=== PATIENT | female | born 2000 | race Caucasian/White ===

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

== ENCOUNTER 2022-11-19 08:24 | Inpatient (IN) | payer OTHER, SELFPAY ==
[2022-11-19] VITALS (53 sets, daily range): BP systolic 103–176; BP diastolic 18–120; PULSE 68–133; RESP 18; TEMP 36.4–36.9; O2SAT 95–100
--- NOTE | ~2022-11-19 | US_ITS ---
EXAMINATION: US OB follow up DATE: 11/19/2022 09:20 INDICATION: Amniotic fluid index and growth assessment during third trimester. Patient in activ e labor, no care TECHNIQUE: Real-time ultrasound of the pelvis was performed. The interpreting radiologist was not pre sent for the study. COMPARISON: None. FINDINGS: There is a single living fetus in vertex presentation. The placenta is anterior. card iac activity and movement are noted. heart rate is 151 beats per minute (bpm). The amniot ic fluid index is 9.7 cm which is normal (normal range: 8.1 cm to 24.8 cm). The following biometric data were obtained: Biparietal diameter (BPD): 8.2 cm; head circumference (HC): 29.8 cm; abdominal circumference (AC): 33 .6 cm; femur length (FL): 6.7 cm. The head circumference to abdominal circumference ratio and femoral length to abdominal circumference ratio are greater than two standard deviations below the mean. These measurements are otherwise conc ordant. Estimated weight is 2755 g +/- 413 g. As single measurements, these parameters are each equal to the following estimated gestational ages w ith ranges of +/- 2 standard deviations: BPD: 32 weeks 6 days +/- 3 weeks 1 days. HC: 33 weeks 0 days +/- 3 weeks 0 days. AC: 37 weeks 4 days +/- 3 weeks 0 days. FL: 34 weeks 3 days +/- 3 weeks 0 days. estimated gestational age based solely on measurements from this exam is 34 weeks 3 days +/- 2 weeks 3 days. IMPRESSION: 1. Single living fetus in vertex presentation. 2. estimated gestational age based solely on measurements from this exam is 34 weeks 3 days +/- 2 weeks 3 days. 3. Normal amniotic fluid index based on estimated gestational age from this examination. 4. Discordant head circumference to abdominal circumference and femoral length to abdominal circumfer ence ratios are greater than two standard deviations below the mean. Reviewed, dictated and finalized at location B. ROPOMETRIST IMPRESSION: 1. Single living fetus in vertex presentation. 2. estimated gestational age based solely on measurements from this exam is 34 weeks 3 days +/- 2 weeks 3 days. 3. Normal amniotic fluid index based on estimated gestational age from [facility] examination. 4. Discordant head circumference to abdominal circumference and femoral length to abdominal circumference ratios are greater than two standard deviations belo w the mean.
[2022-11-19 08:50] LABS: Basophils Percent Auto 0.3 % (0.2-1.2); Eosinophils Absolute Auto 0.1 K/mm3 (0-0.3); Eosinophils Percent Auto 1.1 % (0-4.4); Hematocrit 39.7 % (37.0-47.0); Hemoglobin 13.5 g/dL (12.0-15.0); Immature Granulocyte Absolute 0.06 K/mm3 (0.00-0.031); Immature Granulocyte Percent A 0.5 % (0-0.5); Lymphocytes Absolute Auto 2.12 K/mm3 (0.9-3.2); Lymphocytes Percent Auto 17.7 % (18.3-44.2); Mean Corpuscular Hemoglobin 31.1 pg (26-34); Mean Corpuscular Volume 91.5 fl (80-100); Mean Platelet Volume 11.9 fl (7.4-10.4); Monocytes Absolute Auto 0.8 K/mm3 (0.1-0.6); Monocytes Percent Auto 6.7 % (2.6-8.5); Neutrophils Absolute Auto 8.8 K/mm3 (1.3-6.7); Neutrophils Percent Auto 73.7 % (45.5-73.1); Platelet Count Result 101 k/mm3 (150-375); Red Blood Count 4.34 M/mm3 (4.2-5.4); Red Cell Distribution Width 13.2 % (11.5-14.5)
--- NOTE | 2022-11-19 08:54 | WPDOBADMIT ---
Obstetrics - Admit Note Admission Note: 22 y/o Last period in early February. No care. Denies complications with last and delivery. States . Denies medical problems. Contractions every 2-3 FHR category 1 but limited tracing d/t patient pain and movement in bed U/S vertex presentation Cervix /-1 with bbow Anticipate imminent delivery Plan: labs, ultrasound, antibiotics Dr Navas notified record reviewed. No pertinent additions to the history and/or any subsequent changes in the physical findings that are not consistent with the expected course of the were found. Additions to the history and/or subsequent changes in the physical findings follow. None.
--- NOTE | 2022-11-19 08:54 | LDADM ---
This patient, Frances Pandey, was admitted to Labor/Delivery/Recovery 103 on 11/19/22 at 08:24. Plans for labor, pain management and were discussed with patient. Patient/family oriented to hospital policies and general routines including ID bracelet, bed and alarms, visiting hours, pain management, procedures, bathroom and other care routines, personal items, smoking policy, room service/diet and guest tray routines, infant security routines, and visiting hours. Patient/Family are encouraged to report perceived risks to care and to ask questions if they do not understand what they are told or what they should do. See OBIX for further documentation.
[2022-11-19] MEDS: AMPICILLIN 2 GM/NS 100 ML 2 GM/100 ML BAG IVPB (09:00)
[2022-11-19] MEDS: LACTATED RINGERS 1,000 ML 125 ML IV CONT ×2 (09:00→09:46)
[2022-11-19 09:01] LABS: Alanine Aminotransferase 14 U/L (6-35); Albumin Level 3.1 g/dL (3.5-5.1); Alkaline Phosphatase 141 U/L (38-126); Anion Gap 2 mmol/L (8-16); Aspartate Amino Transferase 19 U/L (14-36); Bilirubin,Total 0.3 mg/dL (0.2-1.3); Blood Urea Nitrogen 12 mg/dL (7-17); Calcium 8.1 mg/dL (8.4-10.2); Carbon Dioxide 27 mmol/L (22-30); Chloride 103 mmol/L (98-107); Estimated Glomerular Filt Rate > 60; Glucose 92 mg/dL (65-110); Potassium 4.3 mmol/L (3.4-5.0); Sodium 132 mmol/L (137-145)
[2022-11-19 09:35] LABS: Hepatitis B Surface Antigen Negative (Negative); Rubella IgG Antibody 13.7 IU/ML
[2022-11-19 09:41] LABS: HIV 1/2 Ab P24 Ag Result Negative (Negative)
--- NOTE | 2022-11-19 09:46 | WPDANESEPP ---
Anes - Eval Pre Procedure Procedure: Labor Epidural Date/Time: 11/19/22 09:46 Surgeon: Yosef Preop Diagnosis: Labor Pain Pre Op Diagnosis: Labor Patient Data Age: 22 Gender: F Height: 1.57 m Weight: Last Vital Signs Pulse 102 H 11/19/22 09:44 BP 147/95 H 11/19/22 09:44 Pulse Ox 95 11/19/22 09:45 O2 Del Method Room Air 11/19/22 08:51 Allergies Allergy/AdvReac Type Severity Reaction Status Date / Time No Known Allergies Allergy Verified 07/22/21 02:01 Home Medications Medication Instructions Recorded Confirmed Type No Home Medications 07/22/21 07/22/21 History Laboratory Tests 11/19/22 11/19/22 11/19/22 08:40 08:40 08:40 WBC 12.0 K/mm3 H K/mm3 (4.5-10.0) RBC 4.34 M/mm3 M/mm3 (4.2-5.4) Hgb 13.5 g/dL g/dL (12.0-15.0) Hct 39.7 % % (37.0-47.0) MCV 91.5 fl fl (80-100) MCH 31.1 pg pg (26-34) MCHC 34.0 g/dl g/dl (32-36) RDW 13.2 % % (11.5-14.5) Plt Count 101 k/mm3 L k/mm3 (150-375) MPV 11.9 fl H fl (7.4-10.4) Immature Gran % (Auto) 0.5 % % (0-0.5) Neut % (Auto) 73.7 % H % (45.5-73.1) Lymph % (Auto) 17.7 % L % (18.3-44.2) [place] % (Auto) 6.7 % % (2.6-8.5) Eos % (Auto) 1.1 % % (0-4.4) Baso % (Auto) 0.3 % % (0.2-1.2) Lymph # (Auto) 2.12 K/mm3 K/mm3 (0.9-3.2) [place] # (Auto) 0.8 K/mm3 H K/mm3 (0.1-0.6) Eos # (Auto) 0.1 K/mm3 K/mm3 (0-0.3) Baso # (Auto) 0.0 K/mm3 K/mm3 (0.0-0.1) Abs Immat Gran (auto) 0.06 K/mm3 H K/mm3 (0.00-0.031) Absolute Neuts (auto) 8.8 K/mm3 H K/mm3 (1.3-6.7) Absolute Nucleated RBC 0.0 K/mm3 K/mm3 (0.0-0.012) Nucleated RBC % 0.0 % % (0.0-0.2) Sodium Potassium Chloride Carbon Dioxide Anion Gap BUN Creatinine Estim Creat Clear Calc Estimated GFR Glucose Calcium Total Bilirubin AST ALT Alkaline Phosphatase Total Protein Albumin RPR Pending Hep Bs Antigen Negative (Negative) HIV 1&2 Ab/P24 Ag 4thGn Rubella IgG Antibody 13.7 IU/ML IU/ML (10 - ) Blood Type Antibody Screen 11/19/22 11/19/22 11/19/22 08:40 08:40 08:40 WBC RBC Hgb Hct MCV MCH MCHC RDW Plt Count MPV Immature Gran % (Auto) Neut % (Auto) Lymph % (Auto) [place] % (Auto) Eos % (Auto) Baso % (Auto) Lymph # (Auto) [place] # (Auto) Eos # (Auto) Baso # (Auto) Abs Immat Gran (auto) Absolute Neuts (auto) Absolute Nucleated RBC Nucleated RBC % Sodium 132 mmol/L L mmol/L (137-145) Potassium 4.3 mmol/L mmol/L (3.4-5.0) Chloride 103 mmol/L mmol/L (98-107) Carbon Dioxide 27 mmol/L mmol/L (22-30) Anion Gap 2 mmol/L L mmol/L (8-16) BUN 12 mg/dL mg/dL (7-17) Creatinine 0.50 mg/dL L mg/dL (0.7-1.0) Estim Creat Clear Calc Not Reportable Estimated GFR > 60 (59 - ) Glucose 92 mg/dL mg/dL (65-110) Calcium 8.1 mg/dL L mg/dL (8.4-10.2) Total Bilirubin 0.3 mg/dL mg/dL (0.2-1.3) AST 19 U/L U/L (14-36) ALT 14 U/L U/L (6-35) Alkaline Phosphatase 141 U/L H U/L (38-126) Total Protein 6.0 g/dL L g/dL (6.3-8.2) Albumin 3.1 g/dL L g/dL (3.5-5.1) RPR Hep Bs Antigen HIV 1&2
[2022-11-19] MEDS: BETAMETHASONE SOD PHOS/ACETATE 30 MG/5 ML VIAL 12 MG IM (09:56)
[2022-11-19 10:12] LABS: Rapid Plasma Reagin Non-Reactive (NonReactive)
[2022-11-19 10:31] LABS: Hemoglobin A1C 4.7 % (<5.7)
[2022-11-19 11:11] LABS: Amphetamine Screen Urine Negative (Negative); Barbiturate Screen Urine Negative (Negative); Benzodiazepines Screen Urine Negative (Negative); Cannabinoid Screen Urine Positive (Negative); Cocaine Screen Urine Negative (Negative); Methadone Screen Urine Negative (Negative); Opiate Screen Urine Negative (Negative); Phencyclidine Screen Urine Negative (Negative)
[2022-11-19] MEDS: OXYTOCIN 30 UNITS/NS 500 ML 30 UNITS/500 ML BAG 999 UNITS IV CONT (12:15)
[2022-11-19] MEDS: miSOPROStol 200 MCG TABLET 800 MCG RECTAL (12:56)
[2022-11-19] MEDS: OXYTOCIN 30 UNITS/NS 500 ML 30 UNITS/500 ML BAG 125 UNITS IV CONT (12:56)
--- NOTE | 2022-11-19 14:40 | PM.OBPRVD ---
OB - Delivery Note Procedure Delivery date: 11/19/22 Procedure: Events: No Care Induction method: None Delivery monitor: External FHT and External Uterine Route of delivery: Episiotomy description: None Laceration Description: None Anesthesia type: Epidural Narrative: Mother and baby in stable condition. Cord gasses collected and handed off to staff. [place] Baby Date of : 11/19/22 Time of : 12:02 Weeks of gestation at delivery: 40 Infant gender: Female Weight (pounds): 6 Weight (ounces): 3 presentation: vertex position: Right Occiput Anterior Placenta delivery description: Spontaneous score one minute: 9 score five minutes: 9
[2022-11-19] MEDS: BENZOCAINE 20% AER SPR (*SP) 56 GM CAN 1 SPRAY TOPICAL (14:51)
[2022-11-19] MEDS: ACETAMINOPHEN 325 MG TABLET 650 MG PO (14:51)
--- NOTE | 2022-11-19 14:55 | OBPPTRN ---
Patient transferred to post room # 285 via wheelchair accompanied by mother and sister. Fob incarcerated. PT oriented to unit, room, information board, rooming in, admission packet and security measures. PT introductions made and plan of care discussed per post , pain management, bottle feeding, daily care activities. PT received such instructions per one to one discussion, mom baby care guide and demonstrations this shift. PT sole recipient of such instructions and no barriers to learning identified at this time. Patient verbalizes understanding.
[2022-11-19] MEDS: IBUPROFEN 600 MG TABLET PO (15:17)
[2022-11-19] MEDS: DIBUCAINE 1% OINTMENT 30 GM TUBE 1 APPLIC TOPICAL (15:17)
--- NOTE | 2022-11-19 15:29 | PCCCNOTE ---
Received call from Jayla, foster care worker with [employer] ([phone]). She reports that pt. has open DCFS case and her first child (less than 1 year old) is in care and lives with Frances's father. Per Jayla, pt. uses meth and is also homeless. Father of baby is in [facility] group home. Jayla reports that she has already made DCFS report since Frances has delivered. I spoke with nursery nurse, Analia, who said baby will have urine drug screen and umbilical cord drug screen and both are pending. Online report made to DCFS and intake ID is [id number]. Care Coordination will see pt. tomorrow for further info and to offer resources.
[2022-11-20 04:15] VITALS: BP 130/82; PULSE 82; RESP 18; TEMP 36.9; O2SAT 97
[2022-11-20] MEDS: IBUPROFEN 600 MG TABLET PO (04:17)
[2022-11-20 05:04] LABS: Hematocrit 34.4 % (37.0-47.0); Hemoglobin 11.5 g/dL (12.0-15.0)
--- NOTE | 2022-11-20 07:29 | WPDANLDPN2 ---
Anes-Prog Note L&D Date/Time: 11/20/22 07:29 Comfortable throughout: labor and delivery Neuraxial method: epidural Epidural/Spinal procedure site: clean & non-tender Neuro status: Neuro function grossly intact. Cardiovascular status: normal Respiratory status: normal Airway patency: baseline Mental status: baseline Post-Op hydration status: normal Vital Signs: Last Vital Signs Temp 36.9 C 11/20/22 04:15 Pulse 82 11/20/22 04:15 Resp 18 11/20/22 04:15 BP 130/82 11/20/22 04:15 Pulse Ox 97 11/20/22 04:15 O2 Del Method Room Air 11/19/22 19:42 Pain score (VAS): 10 I/O: Intake & Output 11/19/22 11/19/22 11/20/22 15:59 23:59 07:59 Intake Total 1100 Output Total 627 Balance 473 Post-procedural complaints: none Patient feedback: Patient satisfied with anesthetic care.
[2022-11-20 07:45] VITALS: BP 125/79; PULSE 75; RESP 16; TEMP 36.8; O2SAT 97
--- NOTE | 2022-11-20 08:08 | PM.OBPNVD ---
OB - PN: Subj Subjective Date/time seen: 11/20/22 08:08 Patient comments: no complaints baby status: doing well OB - PN: Obj Data Labs 11/20/22 04:12 11/19/22 08:40 Labs: Laboratory Results - last 24 hr 11/19/22 11/19/22 11/19/22 08:40 08:40 08:40 WBC 12.0 H RBC 4.34 Hgb 13.5 Hct 39.7 MCV 91.5 MCH 31.1 MCHC 34.0 RDW 13.2 Plt Count 101 L MPV 11.9 H Immature Gran % (Auto) 0.5 Neut % (Auto) 73.7 H Lymph % (Auto) 17.7 L [place] % (Auto) 6.7 Eos % (Auto) 1.1 Baso % (Auto) 0.3 Lymph # (Auto) 2.12 [place] # (Auto) 0.8 H Eos # (Auto) 0.1 Baso # (Auto) 0.0 Abs Immat Gran (auto) 0.06 H Absolute Neuts (auto) 8.8 H Absolute Nucleated RBC 0.0 Nucleated RBC % 0.0 Sodium Potassium Chloride Carbon Dioxide Anion Gap BUN Creatinine Estim Creat Clear Calc Estimated GFR Glucose Hemoglobin A1c Calcium Total Bilirubin AST ALT Alkaline Phosphatase Total Protein Albumin Urine Opiates Screen Urine Methadone Screen Ur Barbiturates Screen Ur Phencyclidine Scrn Ur Amphetamine Screen U Benzodiazepines Scrn Urine Cocaine Screen U Cannabinoids Screen RPR Non-reactive Hep Bs Antigen Negative HIV 1&2 Ab/P24 Ag 4thGn Rubella IgG Antibody 13.7 Blood Type Antibody Screen 11/19/22 11/19/22 11/19/22 08:40 08:40 08:40 WBC RBC Hgb Hct MCV MCH MCHC RDW Plt Count MPV Immature Gran % (Auto) Neut % (Auto) Lymph % (Auto) [place] % (Auto) Eos % (Auto) Baso % (Auto) Lymph # (Auto) [place] # (Auto) Eos # (Auto) Baso # (Auto) Abs Immat Gran (auto) Absolute Neuts (auto) Absolute Nucleated RBC Nucleated RBC % Sodium 132 L Potassium 4.3 Chloride 103 Carbon Dioxide 27 Anion Gap 2 L BUN 12 Creatinine 0.50 L Estim Creat Clear Calc Not Reportable Estimated GFR > 60 Glucose 92 Hemoglobin A1c Calcium 8.1 L Total Bilirubin 0.3 AST 19 ALT 14 Alkaline Phosphatase 141 H Total Protein 6.0 L Albumin 3.1 L Urine Opiates Screen Urine Methadone Screen Ur Barbiturates Screen Ur Phencyclidine Scrn Ur Amphetamine Screen U Benzodiazepines Scrn Urine Cocaine Screen U Cannabinoids Screen RPR Hep Bs Antigen HIV 1&2 Ab/P24 Ag 4thGn Negative Rubella IgG Antibody Blood Type O Positive Antibody Screen Negative 11/19/22 11/19/22 11/20/22 08:40 10:44 04:12 WBC RBC Hgb 11.5 L Hct 34.4 L MCV MCH MCHC RDW Plt Count MPV Immature Gran % (Auto) Neut % (Auto) Lymph % (Auto) [place] % (Auto) Eos % (Auto) Baso % (Auto) Lymph # (Auto) [place] # (Auto) Eos # (Auto) Baso # (Auto) Abs Immat Gran (auto) Absolute Neuts (auto) Absolute Nucleated RBC Nucleated RBC % Sodium Potassium Chloride Carbon Dioxide Anion Gap BUN Creatinine Estim Creat Clear Calc Estimated GFR Glucose Hemoglobin A1c 4.7 Calcium Total Bilirubin AST ALT Alkaline Phosphatase Total Protein Albumin Urine Opiates Screen Negative Urine Methadone Screen Negative Ur Barbiturates Screen Negative Ur Phencyclidine Scrn Negative Ur Amphetamine Screen Negative U Benzodiazepines Scrn Negative Urine Cocaine Screen Negative U Cannabinoids Screen Positive A RPR Hep Bs Antigen HIV 1&2 Ab/P24 Ag 4thGn Rubella IgG Antibody Blood Type Antibody Screen Imaging Radiologist's impression: Impressions Obstetrics Ultrasound 11/19/22 09:26 IMPRESSION: 1. Single living fetus in vertex presentation. 2. estimated gestational age based solely on measurements from this exam is 34 weeks 3 days +/- 2 weeks 3 days. 3. Normal amniotic fluid index
[2022-11-20 11:20] LABS: Immature Platelet Fraction Pct 21.9 % (0.9-11.2); Mean Platelet Volume 12.9 fl (7.4-10.4); Platelet Count Result 126 k/mm3 (150-375)
--- NOTE | 2022-11-20 11:42 | PCCCNOTE ---
I spoke with Julissa, [facility] safety investigator, today [phone] and she reports baby will be taken into care at discharge. She is working with pt.'s disability case manager below to find a foster family as it does not seem mother or FOB have anyone that could care for . Per RN, pt. likely wanting to leave today and her sister will transport her home. I provided Sergio with [facility] a referral for pt. to see if she will be interested in any substance abuse after care. Will follow.
[2022-11-20 12:36] VITALS: BP 122/78; PULSE 79; RESP 16; TEMP 37; O2SAT 98
[2022-11-20 12:47] LABS: Alanine Aminotransferase 14 U/L (6-35); Albumin Level 2.6 g/dL (3.5-5.1); Alkaline Phosphatase 112 U/L (38-126); Anion Gap 2 mmol/L (8-16); Aspartate Amino Transferase 18 U/L (14-36); Bilirubin,Total 0.3 mg/dL (0.2-1.3); Blood Urea Nitrogen 10 mg/dL (7-17); Carbon Dioxide 25 mmol/L (22-30); Chloride 103 mmol/L (98-107); Estimated Glomerular Filt Rate > 60; Glucose 102 mg/dL (65-110); Potassium 4.2 mmol/L (3.4-5.0); Sodium 130 mmol/L (137-145); Uric Acid 5.2 mg/dL (2.5-7.5)
--- NOTE | 2022-11-20 15:19 | PC.NURSE ---
Pt. left AMA at 1430. Pt. encouraged to stay to monitor labs and blood pressure. Pt. states she has a court date in the am and wants to leave. Pt. offered a pass to leave in morning and can return. Pt. declined. Pt asked if she can return to visit baby, Pt allowed to visit. Pt. encouraged to call or return to ER with hypertension symptoms or any other concerns.
== END 2022-11-20 14:30 | disposition left against medical advice (07) | DRG 560 ==
LOC: ANHLDR 12:07 → ANHOB2 14:58
PROVIDERS: Advanced Practice Midwife; Admitting Provider Obstetrics & Gynecology; Visit Provider Obstetrics & Gynecology
DX: O80 Encounter for full-term uncomplicated delivery (principal); R03.0 Elevated blood-pressure reading, without diagnosis of hypertension; Z37.0 Single live birth; Z3A.40 40 weeks gestation of pregnancy
CPT/HCPCS: 36415; 76816; 80053; 80307; 83036; 84550; 85014; 85018; 85025; 85049; 85055; 86592; 86703; 86762; 86850; 86900; 86901; 87340; 88307; A9270; G0432; J0290; J0702; J2590; J2795; J7120

== ENCOUNTER 2024-06-27 18:55 | Observation (INO) | payer OTHER, SELFPAY ==
[2024-06-27] VITALS (32 sets, daily range): BP systolic 74–136; BP diastolic 47–82; PULSE 45–119; O2SAT 86–100; BMI 34.0
--- NOTE | ~2024-06-27 | US_ITS ---
EXAMINATION: US OB BPP wo non-stress DATE: 06/27/2024 22:20 INDICATION: Vaginal bleeding TECHNIQUE: Real-time pelvic ultrasound was performed. The interpreting radiologist was not present fo r the study. COMPARISON: None. FINDINGS: There is a single living fetus in transverse lie with head to maternal left. The placenta is anterio r and low-lying with caudal margin extending to the level of the internal cervical os. There are a fe w small hypoechoic regions at the margins of placenta suspicious for subchorionic hematoma. hea rt rate is 157 beats per minute (bpm). Normal amniotic fluid index of 9.3 cm. Biophysical profile performed by the technologist: breathing (30 sec sustained breathing in 30 minutes): 0 out of 2 movement (3 gross body movements in 30 minutes): 2 out of 2 tone (one episode of [id number]-[id number] limb movement): 2 out of 2 Amniotic fluid pocket (2 cm): 2 out of 2 Total score: 6 out of 8 IMPRESSION: 1. Single living fetus in transverse lie with head to maternal left and with heart rate of 157 bpm. 2. Biophysical profile 6 out of 8. With no points given for 30 seconds of breathing observed o ezra 30 minutes of observation. 3. Small subchorionic hematoma. 4. Normal amniotic fluid index of 9.3 cm. Reviewed, dictated and finalized at location A. IMPRESSION: 1. Single living fetus in transverse lie with head to maternal left and with fe carmencita heart rate of 157 bpm. 2. Biophysical profile 6 out of 8. With no points given for 30 seconds of feta l breathing observed over 30 minutes of observation. 3. Small subchorionic hematoma. 4. Normal amniotic fluid index of 9.3 cm.
--- NOTE | 2024-06-27 20:01 | OBADM ---
This patient, Frances Pandey, admitted to the OB room Labor/Delivery/Recovery 120 for observation. Patient/family oriented to hospital policies and general routines including ID bracelet, bed and alarms, visiting hours, pain management, procedures, bathroom and other care routines, personal items, smoking policy, room service/diet, and visiting hours. Patient/Family are encouraged to report perceived risks to care and to ask questions if they do not understand what they are told or what they should do.
[2024-06-27 20:11] LABS: Barbiturate Screen Urine Negative (Negative); Benzodiazepines Screen Urine Negative (Negative)
[2024-06-27 20:14] LABS: Cannabinoid Screen Urine Positive (Negative); Cocaine Screen Urine Negative (Negative); Methadone Screen Urine Negative (Negative); Opiate Screen Urine Negative (Negative); Phencyclidine Screen Urine Negative (Negative)
[2024-06-27 20:30] LABS: Add Urine Microscopic? YES; Appearance Urine Clear (Clear); Bacteria Urine Rare /hpf; Bilirubin Urine Negative (Negative); Blood Urine 3+ (Negative); Color Urine Dark Yellow (Yellow); Glucose Urine UA Negative (Negative); Ketones Urine Negative (Negative); Leukocyte Esterase Ur Negative LEU/UL (Negative); Need Manual Microscopic Reviewed; Nitrate Urine Negative (Negative); Non Pathogenic Casts 0-2; Protein Urine 2+ mg/dL (Negative); RBC Urine >100 /hpf (0-2); Specific Grav Ur 1.029 (1.001-1.035); Squamous Epithelial Cell Urine Moderate /hpf (Few); WBC Urine 51-100 /hpf (0-3)
[2024-06-27 20:51] LABS: Amphetamine Screen Urine Positive (Negative)
--- NOTE | 2024-07-22 22:06 | PM.OBTRLD ---
OB - Triage/Final Diagnosis Visit Information Comments/Additional reasons for admission: I have assessed the risk for this patient, Frances Pandey, and determined that she would benefit from observation care. Evaluation Laboratory results: Laboratory Tests 06/27/24 19:39 Urine Color Dark yellow Urine Appearance Clear Urine pH 6.0 Ur Specific [place] 1.029 Urine Protein 2+ H Urine Glucose (UA) Negative Urine Ketones Negative Ur Blood (Man) 3+ H Urine Nitrate Negative Urine Bilirubin Negative Urine Urobilinogen 1.0 Add Ur Microanalysis Reviewed Leukocyte Esterase Rfl Negative Urine RBC >100 H Urine WBC 51-100 H Ur Squamous Epith Cells Moderate Urine Bacteria Rare Urine Casts 0-2 Urine Opiates Screen Negative Urine Methadone Screen Negative Ur Barbiturates Screen Negative Ur Phencyclidine Scrn Negative Ur Amphetamine Screen Positive A U Benzodiazepines Scrn Negative Urine Cocaine Screen Negative U Cannabinoids Screen Positive A Final Diagnosis (1) Vaginal bleeding during : Code(s): O46.90 - Antepartum hemorrhage, unspecified, unspecified trimester Status: Acute
== END 2024-06-28 03:47 | disposition home or self-care (01) ==
PROVIDERS: Admitting Provider Obstetrics & Gynecology; Visit Provider Obstetrics & Gynecology
DX: O46.93 Antepartum hemorrhage, unspecified, third trimester (principal); Z3A.31 31 weeks gestation of pregnancy
CPT/HCPCS: 76819; 80307; 81001; 87086; 96375; G0378; G0379

== ENCOUNTER 2024-07-10 14:23 | Inpatient (IN) | payer OTHER, SELFPAY ==
[2024-07-10] VITALS (59 sets, daily range): BP systolic 69–119; BP diastolic 43–78; PULSE 64–135; RESP 14–24; TEMP 36.1–36.6; O2SAT 94–100; BMI 35.1
--- NOTE | 2024-07-10 14:42 | WPDANESEPPF ---
Anes - Initial Pre Proc Eval Date/Time: 07/10/24 14:42 Surgeon: Rivera Jack MD Pre Op Diagnosis: C/S Patient Data Age: 23 Gender: F Height: Weight: Allergies Allergy/AdvReac Type Severity Reaction Status Date / Time No Known Allergies Allergy Verified 04/21/24 14:42 Home Medications Medication Instructions Recorded Confirmed Type vits no.126-ferrous fum 1 tablet PO .qd #30 tabs 04/21/24 Rx 28 mg iron-folic acid 800 mcg tablet (Classic ) Patient hx anesthesia problems: none Family hx anesthesia problems: none Results Review: All pre-operative results and documents have been reviewed as part of the pre-operative evaluation. [facility] Past Medical History Medical History (Updated 07/10/24 @ 14:42 by Trung Moeller MD) Substance abuse Suppression of menses Family History Family History Mother Breast cancer Cervical cancer Father Diabetes mellitus Social History Social History (Updated 07/10/24 @ 14:42 by Trung Moeller MD) Smoking status: Current every day smoker Tobacco type: cigarettes and e-cigarettes/vaping Alcohol intake: never Substance use: current Substance use type: marijuana, IV drugs and methamphetamine Do You Feel Safe in your Home?: Yes Lack of Transportation: YES Lack of Food: Often True Current Housing: I Do Not Have Housing Concerned About Future Housing: YES Difficulty Paying Gas/Electric Bills: No Difficulty Paying for Meds: No Currently Unemployed: YES Education: Don't Know Difficulty w/ Childcare or Family Care: YES Living arrangements: homeless Occupation/Education: unemployed Gender identity (if verbalized by the patient): Female Spiritual care concerns: No Anes - Eval Final PreProcedure Day of Procedure 07/10/24 14:42 Patient weight: overweight Heart: regular rate and rhythm Lungs: clear to auscultation Airway: Mallampati scale class II and special considerations poor dentition Neurological: alert and oriented Last oral intake: >/= 8 hours ASA classification: III Emergent: yes Anesthetic plan: proceed Anesthesia type and monitoring: general (discussed spinal vs GA with OB and patient) ETT and standard monitoring Results Review: All pre-operative results and documents have been reviewed as part of the pre-operative evaluation. Informed Consent: The patient's anesthetic plan and its attendant risks and benefits were discussed with the patient/family/POA. Questions were solicited and answers provided to the satisfaction of the patient/family/POA.
--- NOTE | 2024-07-10 14:51 | PM.IMHP ---
H&P: HPI History of Present Illness Date/Time: 07/10/24 14:51 Chief Complaint: vaginal bleeding and leakage of fluid Narrative: Patient is a 23 year old at 33w1d who presents by ambulance for profuse vaginal bleeding and leakage of fluid. She reports that she woke up an hour ago and immediately noticed a large amount of vaginal bleeding. Per EMS, there was an EBL of 1000cc on the scene. She reports possible recent trauma and also reports a large amount of fluid. She reports recent methamphetamine use. She also has a history of placenta previa, last imaged 2 weeks ago in the office. otherwise complicated by MJ and tobacco use, and insufficient care. On arrival to the unit, a large amount of vaginal blood and clots was noted as well as a large puddle of fluid. She denies abdominal pain. Review of Systems Review of Systems: All systems reviewed & are unremarkable except as noted in HPI and below PMFSH Past Medical History Medical History Substance abuse Suppression of menses Family History Family History Mother Breast cancer Cervical cancer Father Diabetes mellitus Social History Social History Smoking status: Current every day smoker Tobacco type: cigarettes and e-cigarettes/vaping Alcohol intake: never Substance use: current Substance use type: marijuana, IV drugs and methamphetamine Do You Feel Safe in your Home?: Yes Lack of Transportation: YES Lack of Food: Often True Current Housing: I Do Not Have Housing Concerned About Future Housing: YES Difficulty Paying Gas/Electric Bills: No Difficulty Paying for Meds: No Currently Unemployed: YES Education: Don't Know Difficulty w/ Childcare or Family Care: YES Living arrangements: homeless Occupation/Education: unemployed Gender identity (if verbalized by the patient): Female Spiritual care concerns: No Meds Home Medications and Allergies Home Medications Medication Instructions Recorded Confirmed Type vits no.126-ferrous fum 1 tablet PO .qd #30 tabs 04/21/24 Rx 28 mg iron-folic acid 800 mcg tablet (Classic ) Allergies Allergy/AdvReac Type Severity Reaction Status Date / Time No Known Allergies Allergy Verified 04/21/24 14:42 Exam Const: General: comfortable and in distress mild HENMT: Mouth: Yes moist mucous membranes Resp: Effort & Inspection: normal respiratory effort Cardio: Rate: regular rate GI: GI Palp: Yes Soft to palpation and No Tenderness to palpation present (GI) Other: gravid : Other: large amount of vaginal bleeding Skin: General skin exam: normal color Extrem: General: normal to inspection Psych: Mental Status: mental status grossly normal Assessment and Plan Assessment and plan (1) Placenta previa: Code(s): O44.00 - Complete placenta previa NOS or without hemorrhage, unspecified trimester Status: Acute Assessment and Plan: - confirmed on BSUS today - VSS, afebrile - large amount of vaginal bleeding noted at scene by EMS as well as on arrival to hospital - large amount of bleeding concerning for placental abruption due to placenta previa and trauma - breech presentation - discussed concerns with patient, recommend emergency c section for possible placental abruption and PPROM - risks and benefits of primary c section discussed with patient; patient signed consents - CBC, CMP, DIC, T&C pending - Ancef 2g and azithromycin 500mg ordered (2) premature rupture of membranes (PPROM) with unknown onset of labor: Code(s): O42.919 - premature rupture of membranes, unspecified as to length of time between rupture and onset of labor, unspecified trimester Status: Acute Assessment and Plan: - anhydramnios on BSU
[2024-07-10 15:03] LABS: Basophils Percent Auto 0.3 % (0.2-1.2); Eosinophils Absolute Auto 0.1 K/mm3 (0-0.3); Eosinophils Percent Auto 1.2 % (0-4.4); Hematocrit 34.5 % (37.0-47.0); Hemoglobin 10.9 g/dL (12.0-15.0); Immature Granulocyte Absolute 0.06 K/mm3 (0.00-0.031); Immature Granulocyte Percent A 0.7 % (0-0.5); Lymphocytes Absolute Auto 2.53 K/mm3 (0.9-3.2); Lymphocytes Percent Auto 27.5 % (18.3-44.2); Mean Corpuscular HGB Conc 31.6 g/dl (32-36); Mean Corpuscular Hemoglobin 27.7 pg (26-34); Mean Corpuscular Volume 87.6 fl (80-100); Mean Platelet Volume 10.7 fl (7.4-10.4); Monocytes Absolute Auto 0.7 K/mm3 (0.1-0.6); Monocytes Percent Auto 7.3 % (2.6-8.5); Neutrophils Absolute Auto 5.8 K/mm3 (1.3-6.7); Platelet Count Result 270 k/mm3 (150-375); Red Blood Count 3.94 M/mm3 (4.2-5.4); Red Cell Distribution Width 13.5 % (11.5-14.5); White Blood Count 9.2 K/mm3 (4.5-10.0)
[2024-07-10] MEDS: ceFAZolin 2 GM/D5W 50 ML 2 GM/50 ML BAG IVPB (15:04)
[2024-07-10] MEDS: AZITHROMYCIN 500 MG/NS 250 ML 500 MG/250 ML BAG 250 MG IVPB (15:10)
[2024-07-10 15:12] LABS: Prothrombin Time 13.8 Seconds (11.1-14.7)
[2024-07-10 15:13] LABS: Fibrinogen 620 mg/dl (215-510)
[2024-07-10 15:18] LABS: Rapid Plasma Reagin Non-Reactive (NonReactive)
[2024-07-10 15:20] LABS: Alanine Aminotransferase 12 U/L (6-35); Albumin Level 3.6 g/dL (3.5-5.1); Alkaline Phosphatase 126 U/L (38-126); Anion Gap 11 mmol/L (4-12); Aspartate Amino Transferase 21 U/L (14-36); Bilirubin,Total 0.4 mg/dL (0.2-1.3); Blood Urea Nitrogen 7 mg/dL (7-17); Calcium 8.8 mg/dL (8.4-10.2); Carbon Dioxide 24 mmol/L (22-30); Chloride 103 mmol/L (98-107); Estimated Glomerular Filt Rate > 60; Glucose 93 mg/dL (65-110); Potassium 3.6 mmol/L (3.4-5.0); Sodium 138 mmol/L (137-145)
[2024-07-10 15:21] LABS: D Dimer 0.64 ug/mL (<0.48)
[2024-07-10 15:49] LABS: Hepatitis B Surface Antigen Negative (Negative)
[2024-07-10 15:52] LABS: Rubella IgG Antibody 15.3 IU/ML
[2024-07-10 16:00] LABS: Hematocrit 26.9 % (37.0-47.0); Hemoglobin 8.8 g/dL (12.0-15.0)
[2024-07-10 16:03] LABS: HIV 1/2 Ab P24 Ag Result Negative (Negative)
[2024-07-10] MEDS: LIDOCAINE 5% PATCH 1 PATCH TRANSDERM (16:15)
--- NOTE | 2024-07-10 16:15 | WPDHPUPDATE1 ---
History and Physical Update Update Date/Time: 07/10/24 14:15 History and Physical has been reviewed, including an updated exam of the patient. Large amount of vaginal bleeding and amniotic fluid on arrival, concerning for PPROM and placental abruption in the setting of known placenta previa. Breech on BSUS with anhydramnios. FHR category II, minimal variability. Will proceed with emergent delivery. Risks, benefits, and alternatives have been discussed and questions answered. Patient agrees to proceed with procedure.
--- NOTE | 2024-07-10 16:17 | P.PCNOB_ITS ---
OB - Delivery Note Procedure Delivery date: 07/10/24 Pre-op diagnosis: No Care, Placental Abruption, Placenta Previa and Premature Rupture of Membranes Post-op Diagnosis: Same Induction method: None Delivery monitor: External FHT Prior to decision for section, ACOG/SMFM labor guidelines were considered and discussed with the patient and staff. Decision made to proceed with the section.: Yes Procedure Performed: Primary Primary branch: low cervical, transverse Surgeon: Rivera Jack MD Anesthesia type: General Description of Procedure/Findings: The patient was taken to the operating room where she was placed in the dorsal supine position with a leftward tilt. The electronic monitor was placed and heart rate was found to be reassuring. She was prepped and draped in the normal sterile fashion, and general anesthesia was induced. A Pfannenstiel skin incision was made with the scalpel and carried through to the underlying layer of fascia with the scalpel. The fascia was incised in the midline and the incision extended laterally bluntly.? The rectus muscles were then in the midline, and the peritoneum entered bluntly. The peritoneal incision was extended superiorly and inferiorly with good visualization of the bladder. With the bladder blade providing retraction and visualization, the lower uterine segment was incised in a transverse fashion with the scalpel. The uterine incision was then extended laterally. The bladder blade was removed and the infant's feet were elevated and delivered atraumatically. The remainder of the infant was then delivered without difficulty.. The umbilical cord was doubly clamped and cut. The infant was then handed off to the waiting nursing staff. Specimens then obtained as listed below. The placenta was then removed manually and the uterus was exteriorized and cleared of all clots and debris. The uterine incision was repaired with 0- Monocryl in a running, interlocked fashion. A second layer of the same suture was used to imbricate the incision and ensure hemostasis. The posterior cul-de-sac was manually cleared of all clots and debris. The uterus was returned to the abdomen. The gutters were then manually cleared of all clots and debris.? The uterine incision was visualized to be hemostatic. The fascia was reapproximated with 0-Vicryl in a running fashion. The subcutaneous tissues were irrigated with warmed normal saline, and hemostasis was assured. The subcutaneous tissue was greater than 2 cm and closed in a running fashion with 2-0 plain gut suture.? The skin was closed with 4-0 monocryl in a running subcuticular stitch. Fundal pressure was applied to express remaining intrauterine clots and debris. The patient tolerated the procedure well. Sponge, lap, and needle counts were correct times three per nursing. The patient was taken to the recovery room in stable condition. Estimated Blood Loss: 1,200 Pathology: Yes Complications: No immediate complications Condition: Stable Disposition: Floor Baby Date of : 07/10/24 Gestational Age by Date: 33 Infant gender: Female presentation: transverse Placenta delivery description: Expressed
[2024-07-10] MEDS: KETOROLAC 30 MG/ML VIAL (*BKC) IV PUSH (16:40)
[2024-07-10] MEDS: ACETAMINOPHEN 500 MG TABLET 1000 MG PO (16:40)
[2024-07-10 16:45] LABS: Barbiturate Screen Urine Negative (Negative); Benzodiazepines Screen Urine Negative (Negative)
[2024-07-10] MEDS: HYDROmorphon 0.2MG/ML PCA(*CRX 6 MG/30 ML PCA.VIAL 0.5 MG IV CONT ×2 (17:01→20:44)
[2024-07-10 17:20] LABS: Cannabinoid Screen Urine Positive (Negative); Cocaine Screen Urine Negative (Negative); Methadone Screen Urine Negative (Negative); Opiate Screen Urine Positive (Negative); Phencyclidine Screen Urine Negative (Negative)
--- NOTE | 2024-07-10 17:35 | LDADM ---
This patient, Frances Pandey, was admitted to Labor/Delivery/Recovery 119 on 07/10/24 at 14:23. Plans for , pain management and were discussed with patient. Pt arrived via EMS with copious amounts of watery vaginal bleeding. Pt and S.O. states it happened around 1330, there was a big gush and then blood. Pt reported hx of placenta previa. Pt states she has been having intercourse even though she wasn't supposed to. Pt and S.O. state she smokes cigarettes, vapes, smokes weed and uses ice its like meth. She states she hasn't used for a few days. They slept in a shed last night after leaving a friends place which is where they have been staying. Older daughter lives with patients Dad and younger daughter lives with a family friend. States her S.O. is not the biological father of this baby. States she slept with someone else while he was in [facility]. Patient/family oriented to hospital policies and general routines including ID bracelet, bed and alarms, visiting hours, pain management, procedures, bathroom and other care routines, personal items, smoking policy, room service/diet and guest tray routines, infant security routines, and visiting hours. Patient/Family are encouraged to report perceived risks to care and to ask questions if they do not understand what they are told or what they should do. See OBIX for further documentation.
[2024-07-10 17:51] LABS: Amphetamine Screen Urine Positive (Negative)
--- NOTE | 2024-07-10 18:00 | PC.NURSE ---
Pt's recovery is complete, pt will remain on unit until she is able to visit in the nursery to see her baby.
--- NOTE | 2024-07-10 19:45 | PC.NURSE ---
Patient transferred to post room #287 via stretcher. Support person present. Oriented to unit, room, information board, rooming in, admission packet and security measures. Patient verbalizes understanding.
[2024-07-10 21:18] LABS: Basophils Percent Auto 0.1 % (0.2-1.2); Eosinophils Percent Auto 0.1 % (0-4.4); Hematocrit 26.1 % (37.0-47.0); Hemoglobin 8.7 g/dL (12.0-15.0); Immature Granulocyte Absolute 0.08 K/mm3 (0.00-0.031); Immature Granulocyte Percent A 0.4 % (0-0.5); Lymphocytes Absolute Auto 1.19 K/mm3 (0.9-3.2); Lymphocytes Percent Auto 6.2 % (18.3-44.2); Mean Corpuscular HGB Conc 33.3 g/dl (32-36); Mean Corpuscular Hemoglobin 28.8 pg (26-34); Mean Corpuscular Volume 86.4 fl (80-100); Mean Platelet Volume 10.9 fl (7.4-10.4); Monocytes Absolute Auto 0.7 K/mm3 (0.1-0.6); Monocytes Percent Auto 3.5 % (2.6-8.5); Neutrophils Absolute Auto 17.2 K/mm3 (1.3-6.7); Neutrophils Percent Auto 89.7 % (45.5-73.1); Platelet Count Result 191 k/mm3 (150-375); Red Blood Count 3.02 M/mm3 (4.2-5.4); Red Cell Distribution Width 13.5 % (11.5-14.5); White Blood Count 19.2 K/mm3 (4.5-10.0)
[2024-07-10 22:13] LABS: Hepatitis B Surface Antigen Negative (Negative); Rubella IgG Antibody 11.4 IU/ML
[2024-07-10] MEDS: ACETAMINOPHEN 325 MG TABLET 650 MG PO (22:26)
[2024-07-10] MEDS: KETOROLAC 15 MG/ML VIAL (*BKC) IV PUSH (22:34)
[2024-07-11] VITALS (13 sets, daily range): BP systolic 86–120; BP diastolic 55–76; PULSE 58–99; RESP 15–18; TEMP 36.3–36.8; O2SAT 95–100
--- NOTE | 2024-07-11 00:37 | PC.NURSE ---
0217-Transport team from [facility] in pts room to notify parent that will now pt taken to [facility] for higher level of care.
[2024-07-11] MEDS: HYDROmorphon 0.2MG/ML PCA(*CRX 6 MG/30 ML PCA.VIAL 0.5 MG IV CONT (01:17)
[2024-07-11 04:19] LABS: Basophils Percent Auto 0.2 % (0.2-1.2); Eosinophils Percent Auto 0.2 % (0-4.4); Hematocrit 21.8 % (37.0-47.0); Hemoglobin 7.4 g/dL (12.0-15.0); Immature Granulocyte Absolute 0.07 K/mm3 (0.00-0.031); Immature Granulocyte Percent A 0.4 % (0-0.5); Lymphocytes Percent Auto 12.5 % (18.3-44.2); Mean Corpuscular HGB Conc 33.9 g/dl (32-36); Mean Corpuscular Hemoglobin 29.2 pg (26-34); Mean Corpuscular Volume 86.2 fl (80-100); Mean Platelet Volume 11.1 fl (7.4-10.4); Monocytes Absolute Auto 1.1 K/mm3 (0.1-0.6); Monocytes Percent Auto 6.7 % (2.6-8.5); Neutrophils Absolute Auto 12.8 K/mm3 (1.3-6.7); Platelet Count Result 213 k/mm3 (150-375); Red Blood Count 2.53 M/mm3 (4.2-5.4); Red Cell Distribution Width 13.3 % (11.5-14.5)
[2024-07-11] MEDS: DEXTROSE 5%/0.45% SOD CHL 1,000 ML 125 ML IV CONT (05:09)
[2024-07-11] MEDS: KETOROLAC 15 MG/ML VIAL (*BKC) IV PUSH ×2 (05:12→11:21)
[2024-07-11] MEDS: ACETAMINOPHEN 325 MG TABLET 650 MG PO ×4 (05:12→22:44)
--- NOTE | 2024-07-11 05:30 | PC.NURSE ---
0530- This RN spoke with Dr. Navas to report pts 0500 labs, vitals- Dr. Navas gave NNO at this time however wants catheter to remain in for now. Will endorse to days.
--- NOTE | 2024-07-11 05:36 | PC.NURSE ---
0540- Pt refused to allow me to perform any pericare at this time. FC emptied for 700mls.
[2024-07-11] MEDS: POLYSACCHARIDE IRON COMPLEX 150 MG CAPSULE PO ×2 (08:05→16:58)
--- NOTE | 2024-07-11 08:30 | PM.OBPNVD ---
OB - PN: Subj Subjective Date/time seen: 07/11/24 08:30 Patient comments: no complaints, pain well controlled, tolerating diet and flatus present OB - PN: Obj Data Labs 07/11/24 04:05 07/10/24 14:54 Labs: Laboratory Results - last 24 hr 07/10/24 07/10/24 07/10/24 14:54 15:43 21:13 WBC 9.2 19.2 H RBC 3.94 L 3.02 L Hgb 10.9 L 8.8 L 8.7 L Hct 34.5 L 26.9 L 26.1 L MCV 87.6 86.4 MCH 27.7 28.8 MCHC 31.6 L 33.3 RDW 13.5 13.5 Plt Count 270 D 191 MPV 10.7 H 10.9 H Immature Gran % (Auto) 0.7 H 0.4 Neut % (Auto) 63.0 89.7 H Lymph % (Auto) 27.5 6.2 L [place] % (Auto) 7.3 3.5 Eos % (Auto) 1.2 0.1 Baso % (Auto) 0.3 0.1 L Lymph # (Auto) 2.53 1.19 [place] # (Auto) 0.7 H 0.7 H Eos # (Auto) 0.1 0.0 Baso # (Auto) 0.0 0.0 Abs Immat Gran (auto) 0.06 H 0.08 H Absolute Neuts (auto) 5.8 17.2 H Absolute Nucleated RBC 0.000 0.000 Nucleated RBC % 0.0 0.0 PT 13.8 INR 1.0 APTT 26.0 Fibrinogen 620 H D-Dimer 0.64 H Sodium 138 Potassium 3.6 Chloride 103 Carbon Dioxide 24 Anion Gap 11 BUN 7 Creatinine 0.50 L Estim Creat Clear Calc Not Reportable Estimated GFR > 60 Glucose 93 Calcium 8.8 Total Bilirubin 0.4 AST 21 ALT 12 Alkaline Phosphatase 126 Total Protein 7.0 Albumin 3.6 Urine Opiates Screen Positive A Urine Methadone Screen Negative Ur Barbiturates Screen Negative Ur Phencyclidine Scrn Negative Ur Amphetamine Screen Positive A U Benzodiazepines Scrn Negative Urine Cocaine Screen Negative U Cannabinoids Screen Positive A RPR Non-reactive Hep Bs Antigen Negative Negative HIV 1&2 Ab/P24 Ag 4thGn Negative Rubella IgG Antibody 15.3 11.4 Blood Type O Positive Antibody Screen Negative Crossmatch See Detail 07/11/24 04:05 WBC 16.0 H RBC 2.53 L Hgb 7.4 L Hct 21.8 L MCV 86.2 MCH 29.2 MCHC 33.9 RDW 13.3 Plt Count 213 MPV 11.1 H Immature Gran % (Auto) 0.4 Neut % (Auto) 80.0 H Lymph % (Auto) 12.5 L [place] % (Auto) 6.7 Eos % (Auto) 0.2 Baso % (Auto) 0.2 Lymph # (Auto) 2.00 [place] # (Auto) 1.1 H Eos # (Auto) 0.0 Baso # (Auto) 0.0 Abs Immat Gran (auto) 0.07 H Absolute Neuts (auto) 12.8 H Absolute Nucleated RBC 0.000 Nucleated RBC % 0.0 PT INR APTT Fibrinogen D-Dimer Sodium Potassium Chloride Carbon Dioxide Anion Gap BUN Creatinine Estim Creat Clear Calc Estimated GFR Glucose Calcium Total Bilirubin AST ALT Alkaline Phosphatase Total Protein Albumin Urine Opiates Screen Urine Methadone Screen Ur Barbiturates Screen Ur Phencyclidine Scrn Ur Amphetamine Screen U Benzodiazepines Scrn Urine Cocaine Screen U Cannabinoids Screen RPR Hep Bs Antigen HIV 1&2 Ab/P24 Ag 4thGn Rubella IgG Antibody Blood Type Antibody Screen Crossmatch OB - PN A/P Assessment and Plan (1) Placenta previa: Code(s): O44.00 - Complete placenta previa NOS or without hemorrhage, unspecified trimester Status: Acute (2) delivery delivered: Code(s): O82 - Encounter for delivery without indication Status: Acute (3) Anemia: Code(s): D64.9 - Anemia, unspecified Status: Acute Plan 23-year-old, status post delivery for previa and 3rd trimester hemorrhage. Severe anemia today. Offered blood-patient declines. To check CMP and CBC. patient likely to leave AMA today. Threatened to leave yesterday. Plan day: 1 Comments: Post Op LTCS - no problems, routine recovery Time Spent With Patient Time: Total time spent is greater than 50% in coordination of care (as documented) at patient's floor/unit and/or counseling patient: Exam Const: General: cooperative, healthy appearing, comfortable and no acute distress Resp: Auscultation: no crackles, no rales, no rhonchi and no wheezes C
--- NOTE | 2024-07-11 09:03 | WPDANLDPN2 ---
Anes-Prog Note L&D Date/Time: 07/11/24 09:03 Comfortable throughout: section Neuro status: Neuro function grossly intact. Cardiovascular status: normal Respiratory status: normal Airway patency: baseline Mental status: baseline Post-Op hydration status: normal Vital Signs: Last Vital Signs Temp 36.6 C 07/11/24 05:18 Pulse 86 07/11/24 05:18 Resp 16 07/11/24 05:18 BP 115/58 L 07/11/24 05:18 Pulse Ox 99 07/11/24 05:18 O2 Del Method Room Air 07/10/24 20:45 Pain score (VAS): 4/10 I/O: Intake & Output 07/10/24 07/11/24 07/11/24 23:59 07:59 15:59 Intake Total 350.2 300 Output Total 300 1400 Balance 50.2 -1100 Patient feedback: Patient satisfied with anesthetic care.
--- NOTE | 2024-07-11 09:04 | WPDANESPN ---
Anes - Prog Note Post-Op Date/Time: 07/11/24 09:04 Cardiovascular status: normal Respiratory status: normal Airway patency: baseline Mental status: baseline Post-Op hydration status: normal Vital Signs: Last Vital Signs Temp 36.6 C 07/11/24 05:18 Pulse 86 07/11/24 05:18 Resp 16 07/11/24 05:18 BP 115/58 L 07/11/24 05:18 Pulse Ox 99 07/11/24 05:18 O2 Del Method Room Air 07/10/24 20:45 Pain Score (VAS): 410 I/O: Intake & Output 07/10/24 07/11/24 07/11/24 23:59 07:59 15:59 Intake Total 350.2 300 Output Total 300 1400 Balance 50.2 -1100 Laboratory Tests 07/11/24 04:05 07/10/24 14:54 07/10/24 07/10/24 07/10/24 14:54 15:43 21:13 WBC 9.2 19.2 H RBC 3.94 L 3.02 L Hgb 10.9 L 8.8 L 8.7 L Hct 34.5 L 26.9 L 26.1 L MCV 87.6 86.4 MCH 27.7 28.8 MCHC 31.6 L 33.3 RDW 13.5 13.5 Plt Count 270 D 191 MPV 10.7 H 10.9 H Immature Gran % (Auto) 0.7 H 0.4 Neut % (Auto) 63.0 89.7 H Lymph % (Auto) 27.5 6.2 L [place] % (Auto) 7.3 3.5 Eos % (Auto) 1.2 0.1 Baso % (Auto) 0.3 0.1 L Lymph # (Auto) 2.53 1.19 [place] # (Auto) 0.7 H 0.7 H Eos # (Auto) 0.1 0.0 Baso # (Auto) 0.0 0.0 Abs Immat Gran (auto) 0.06 H 0.08 H Absolute Neuts (auto) 5.8 17.2 H Absolute Nucleated RBC 0.000 0.000 Nucleated RBC % 0.0 0.0 PT 13.8 INR 1.0 APTT 26.0 Fibrinogen 620 H D-Dimer 0.64 H Sodium 138 Potassium 3.6 Chloride 103 Carbon Dioxide 24 Anion Gap 11 BUN 7 Creatinine 0.50 L Estim Creat Clear Calc Not Reportable Estimated GFR > 60 Glucose 93 Calcium 8.8 Total Bilirubin 0.4 AST 21 ALT 12 Alkaline Phosphatase 126 Total Protein 7.0 Albumin 3.6 Urine Opiates Screen Positive A Urine Methadone Screen Negative Ur Barbiturates Screen Negative Ur Phencyclidine Scrn Negative Ur Amphetamine Screen Positive A U Benzodiazepines Scrn Negative Urine Cocaine Screen Negative U Cannabinoids Screen Positive A RPR Non-reactive Hep Bs Antigen Negative Negative HIV 1&2 Ab/P24 Ag 4thGn Negative Rubella IgG Antibody 15.3 11.4 Blood Type O Positive Antibody Screen Negative Crossmatch See Detail 07/11/24 04:05 WBC 16.0 H RBC 2.53 L Hgb 7.4 L Hct 21.8 L MCV 86.2 MCH 29.2 MCHC 33.9 RDW 13.3 Plt Count 213 MPV 11.1 H Immature Gran % (Auto) 0.4 Neut % (Auto) 80.0 H Lymph % (Auto) 12.5 L [place] % (Auto) 6.7 Eos % (Auto) 0.2 Baso % (Auto) 0.2 Lymph # (Auto) 2.00 [place] # (Auto) 1.1 H Eos # (Auto) 0.0 Baso # (Auto) 0.0 Abs Immat Gran (auto) 0.07 H Absolute Neuts (auto) 12.8 H Absolute Nucleated RBC 0.000 Nucleated RBC % 0.0 PT INR APTT Fibrinogen D-Dimer Sodium Potassium Chloride Carbon Dioxide Anion Gap BUN Creatinine Estim Creat Clear Calc Estimated GFR Glucose Calcium Total Bilirubin AST ALT Alkaline Phosphatase Total Protein Albumin Urine Opiates Screen Urine Methadone Screen Ur Barbiturates Screen Ur Phencyclidine Scrn Ur Amphetamine Screen U Benzodiazepines Scrn Urine Cocaine Screen U Cannabinoids Screen RPR Hep Bs Antigen HIV 1&2 Ab/P24 Ag 4thGn Rubella IgG Antibody Blood Type Antibody Screen Crossmatch Post-procedural complaints: none Patient Feedback: Patient satisfied with anesthetic care.
--- NOTE | 2024-07-11 09:48 | PC.NURSE ---
Patient refuses most recent CBC and CMP lab order blood draw.
[2024-07-11] MEDS: HYDROcodone/acetaminophen (*CRX) 10-325 MG TABLET 1 TAB PO (13:49)
--- NOTE | 2024-07-11 14:20 | PCCCNOTE ---
Addendum entered by Erlinda Santana, PROMOTIONS DIRECTOR 07/20/24 08:32: Umbilical cord drug screen results faxed to [facility] office at [phone]. Addendum entered by Erlinda Santana, PROMOTIONS DIRECTOR 07/12/24 09:27: DCFS Worker, Sylvia [phone], reports coming to see pt. at bedside this morning 07/12. HENRIK Eid aware. As Sylvia requested, pt's UDS faxed to [facility] [phone]. Original Note: Recvd referral due to pt. homeless, +meth abuse and other drugs, baby 33 weeks sent to [facility]. Has 2 other children not in her care. Met with pt., pt's FOB Shamir, and pt's father Irwin. Pt. reports this is her third child and she does not have custody of any. Pt's oldest child is in custody of Irwin, and her 2nd child is being cared for by close family friend. Baby girl transferred to [facility]. Pt. reports she and Shamir will continue staying with friends in [place]. Pt. denies current [facility] open case, or pillowcase maker. Pt. was + for Opiates, Amphetamines, and THC during UDS. Baby's umbilical cord drug screen pending. Homeless shelters, substance abuse, and counseling resources provided to pt. Pt. denied wanting to discuss anymore information with me. [facility] report made online #[id number]. Notified [facility] social media sr strategy manager via voicemail [phone] and ASSOCIATE CURATORHENRIK Trotter [phone] of concerns. HENRIK Eid aware of visit.
--- NOTE | 2024-07-11 15:49 | PC.NURSE ---
Patient is in room visiting with 2 year old daughter. 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 Informed patient to not lift anything heavier than a due to increase risk for dehiscence of incision. Observed patient continuing to lift 4 year old multiple times after education was provided.
[2024-07-11] MEDS: IBUPROFEN 600 MG TABLET PO ×2 (16:58→22:42)
[2024-07-11] MEDS: LIDOCAINE 5% PATCH 1 PATCH TRANSDERM (16:59)
[2024-07-12 04:40] VITALS: BP 111/68; PULSE 91; RESP 18; TEMP 36.6; O2SAT 100
[2024-07-12] MEDS: ACETAMINOPHEN 325 MG TABLET 650 MG PO ×4 (04:40→23:07)
[2024-07-12] MEDS: IBUPROFEN 600 MG TABLET PO ×4 (04:40→23:07)
[2024-07-12] MEDS: POLYSACCHARIDE IRON COMPLEX 150 MG CAPSULE PO ×2 (07:07→16:58)
[2024-07-12] MEDS: HYDROcodone/acetaminophen (*CRX) 10-325 MG TABLET 1 TAB PO ×2 (07:07→16:59)
[2024-07-12 07:46] VITALS: BP 97/64; PULSE 90; RESP 18; TEMP 36.7; O2SAT 99
--- NOTE | 2024-07-12 09:14 | P.PNOB_ITS ---
OB - PN: Subj Subjective Date/time seen: 07/12/24 09:14 Patient comments: no complaints, pain well controlled, incisional pain, tolerating diet and flatus present OB - PN: Obj Data Labs 07/11/24 04:05 07/10/24 14:54 OB - PN A/P Assessment and Plan (1) Anemia: Code(s): D64.9 - Anemia, unspecified Status: Acute (2) delivery delivered: Code(s): O82 - Encounter for delivery without indication Status: Acute (3) Methamphetamine abuse: Code(s): F15.10 - Other stimulant abuse, uncomplicated Status: Acute Assessment and Plan: post day/postoperative day 2. For delivery for placenta p revia. Likely has severe anemia. Patient refuses blood draw for 2nd day. She is sleeping excessively. She has fatigue. She is informed of the risks of severe anemia. She is informed of the concern about myocardial infarction with meth use and severe anemia. Patient is unable to stay awake, continue observation. Plan day: 2 Plan: routine care Comments: POD#2 LTCS - no problems, Time Spent With Patient Time: Total time spent is greater than 50% in coordination of care (as documented) at patient's floor/unit and/or counseling patient: Exam Const: General: comfortable, no acute distress and alert Resp: Effort & Inspection: normal respiratory effort Auscultation: no crackles, no rales and no rhonchi Cardio: Rate: regular rate Heart sounds: no click, no murmurs and no rubs GI: Inspection: non-distended Auscultation: normal bowel sounds Other: Incision - CDI Extrem: General: normal to inspection, no pedal edema and no calf tenderness
[2024-07-12] MEDS: LIDOCAINE 5% PATCH 1 PATCH TRANSDERM (16:57)
[2024-07-12 19:25] VITALS: BP 130/83; PULSE 89; RESP 18; TEMP 36.4; O2SAT 100
[2024-07-13] MEDS: ACETAMINOPHEN 325 MG TABLET 650 MG PO ×2 (04:50→10:39)
[2024-07-13] MEDS: IBUPROFEN 600 MG TABLET PO ×2 (04:50→10:40)
[2024-07-13] MEDS: LIDOCAINE 5% PATCH 1 PATCH TRANSDERM (04:53)
[2024-07-13 07:20] VITALS: BP 102/65; PULSE 103; RESP 16; TEMP 36.4; O2SAT 100
[2024-07-13] MEDS: HYDROcodone/acetaminophen (*CRX) 10-325 MG TABLET 1 TAB PO (07:32)
[2024-07-13] MEDS: POLYSACCHARIDE IRON COMPLEX 150 MG CAPSULE PO (07:33)
--- NOTE | 2024-07-13 08:15 | PC.NURSE ---
Patient states she is not sure where she is going to stay after discharge from hospital. States that she will need to make phone calls to set up rides and places to stay. Instructed patient to make calls this morning as she may be discharged sometime today. Patient states she will call later and wants to go back to sleep now. Call made to care coordination by RN to try find housing for patient after discharge. Care coordination to come see patient this AM.
--- NOTE | 2024-07-13 08:53 | PC.NURSE ---
Care coordination states that they have already provided patient with resources of homeless shelters. Handed patient paper with homeless fci information and asked her to make calls to places at this time.
--- NOTE | 2024-07-13 09:23 | P.PNOB_ITS ---
OB - PN: Subj Subjective Date/time seen: 07/13/24 09:23 Interval history: POD#3 s/p emergent PLTCS under general anesthesia Pain controlled Voiding without issue Passing flatus Discussed discharge and return precautions as well as lifting restrictions Stable for discharge today OB - PN: Obj Data Labs 07/11/24 04:05 07/10/24 14:54 OB - PN A/P Assessment and Plan (1) Anemia: Code(s): D64.9 - Anemia, unspecified Status: Acute Assessment and Plan: - declined repeat blood draw and blood transfusion - asymptomatic (2) delivery delivered: Code(s): O82 - Encounter for delivery without indication Status: Acute Assessment and Plan: - meeting postop milestones (3) Tobacco abuse: Code(s): Z72.0 - Tobacco use Status: Acute (4) Marijuana use: Code(s): F12.90 - Cannabis use, unspecified, uncomplicated Status: Acute (5) Methamphetamine abuse: Code(s): F15.10 - Other stimulant abuse, uncomplicated Status: Acute (6) Homelessness: Code(s): Z59.00 - Homelessness unspecified Status: Acute Assessment and Plan: - care coordination involved Plan day: 3 Plan: routine care and discharge home Time Spent With Patient Time: Total time spent is greater than 50% in coordination of care (as documented) at patient's floor/unit and/or counseling patient: Review of Systems Review of Systems: All systems reviewed & are unremarkable except as noted in HPI and below Exam Const: General: comfortable and no acute distress Orienta tion/consciousness: patient oriented x3 Resp: Effort & Inspection: normal respiratory effort GI: GI Palp: Yes Soft to palpation and No Tenderness to palpation present (GI) Other: incision c/d/i
--- NOTE | 2024-07-13 09:31 | PM.OBDSVD ---
DS: Admitting Diagnosis Discharge Date 07/13/24 Admitting Diagnosis PPROM and placental abruption DS: Discharge Diagnosis Discharge Diagnosis (1) Anemia: Code(s): D64.9 - Anemia, unspecified Status: Acute (2) delivery delivered: Code(s): O82 - Encounter for delivery without indication Status: Acute (3) Marijuana use: Code(s): F12.90 - Cannabis use, unspecified, uncomplicated Status: Acute (4) Tobacco abuse: Code(s): Z72.0 - Tobacco use Status: Acute (5) Methamphetamine abuse: Code(s): F15.10 - Other stimulant abuse, uncomplicated Status: Acute (6) Homelessness: Code(s): Z59.00 - Homelessness unspecified Status: Acute OB - DS: Summary OB Procedures : None OB Procedures Intrapartum: low cervical, transverse OB Procedures: : None Peripartum Data Procedures: Procedures Operation Date: 07/10/24 15:00 Actual Procedure Side Surgeon p Section Rivera Jack MD Time Spent with Patient Time attestation: Total time spent providing and/or coordinating discharge services: DS: Data Data Completed and Pending Pending studies at discharge: Pending at discharge 07/10/24 15:19 Surgical [PTH] Routine Discharge Plan Discharge Attending physician on discharge: Rivera Jack Discharging Clinician: Rivera Jack Patient Disposition: Home, Self-Care Activity: may shower, as tolerated and pelvic rest Diet: as tolerated Discharge Instructions: Education: Mom and Baby Guide Given to: Follow-Up: Call your delivering provider's office for an appointment to be seen in: Mom and baby should come to the [facility] for the follow-up appointment. Appointment Date/Time: at What to expect at your follow-up visit: Call [phone] if you are unable to keep your appointment time. BREAST CARE: * Wear a snug supportive bra. * For engorgement discomfort: Breast Feeding: * Apply warm moist washcloths * Express milk as needed to relieve engorgement * Wear loose clothing Bottle Feeding: * May apply ice packs * For sore nipples: * Identify correct latch-on * Apply warm moist washcloths before and after nursing * Air dry nipples after nursing * May apply Lansinoh cream to nipples ABDOMINAL INCISION: (if applicable) * Allow incision to air dry * Do NOT use lotions for powders on your incision * When showering, allow soap and water to run over the incision, but do not wash incision EPISIOTOMY/PERINEAL CARE: * Until bleeding stops, use your jennifer bottle after urinating * Change your pad frequently throughout the day * You may take sitz baths several times a day (fill your bathtub with warm water and soak for 20 minutes.) Do NOT bathe in the water * No tub baths until seen by your physician - You may shower ACTIVITY: * Rest as much as possible. * Do not exercise or lift anything heavier than your baby (such as laundry or other children.) * Avoid stairs or driving as much as possible. * Do not put anything into the vagina. No douching, tampons, or sexual activity until seen by physician. NOTIFY PHYSICIAN IF YOU HAVE ANY QUESTIONS OR IF ANY OF THE FOLLOWING SYMPTOMS OCCUR: * If your episiotomy or incision becomes red, swollen, or more painful than what you have experienced in the hospital. * If your vaginal bleeding becomes foul smelling. * If your vaginal bleeding becomes more heavy than a period or if your bleeding changes from pink to bright red. However, you may pass an occasional walnut-sized clot once or twice for the first week . * If you experience a sharp, shooting pain in you calves. * If you discover a hard, reddened area on your breast or if you experience flu-like symptoms. DIET: * Eat regular, well-balanced meals. * Lia
--- NOTE | 2024-07-13 11:05 | PC.NURSE ---
Patient states she cannot get ahold of sister in law for a ride at this time. Informed her that she needs to start placing calls to find a residence post discharge. Discussed discharge paper work with patient. She verbalized understanding. Stated that she needs to dins placement by 1600 today per OB charge nurse orders.
== END 2024-07-13 11:08 | disposition home or self-care (01) | DRG 540 ==
LOC: ANHLDR 14:40 → ANHOB2 19:47
PROVIDERS: Admitting Provider Obstetrics & Gynecology; Visit Provider Obstetrics & Gynecology
PROC: 10D00Z1 Extraction of Products of Conception, Low, Open Approach (ICD-10-PCS; CPT 59514; principal; 2024-07-10 15:00)
DX: O99.324 Drug use complicating childbirth (principal); F15.90 Other stimulant use, unspecified, uncomplicated; F12.90 Cannabis use, unspecified, uncomplicated; O99.334 Smoking (tobacco) complicating childbirth; F17.210 Nicotine dependence, cigarettes, uncomplicated; O44.03 Complete placenta previa NOS or without hemorrhage, third trimester; O42.913 Preterm premature rupture of membranes, unspecified as to length of time between rupture and onset of labor, third trimester; O32.1XX0 Maternal care for breech presentation, not applicable or unspecified; O45.93 Premature separation of placenta, unspecified, third trimester; O44.13 Complete placenta previa with hemorrhage, third trimester; O99.02 Anemia complicating childbirth; D64.9 Anemia, unspecified; Z3A.33 33 weeks gestation of pregnancy; Z37.0 Single live birth; Z59.00 Homelessness unspecified
CPT/HCPCS: 36415; 80053; 80307; 85014; 85018; 85025; 85380; 85384; 85610; 85730; 86592; 86703; 86762; 86850; 86900; 86901; 86923; 87340; 88307; A9270; G0432; J0456; J0690; J1170; J1885; J2274; J3010

== ENCOUNTER 2024-07-16 10:00 | Inpatient (IN) | payer OTHER, SELFPAY ==
[2024-07-16] VITALS (18 sets, daily range): BP systolic 91–142; BP diastolic 51–77; PULSE 105–146; RESP 13–30; TEMP 36.7–39.5; O2SAT 99–100; BMI 34.2
--- NOTE | ~2024-07-16 | CT_ITS ---
CT abdomen pelvis w con Ordering provider: Esmer Barrett PA-C History: 23 years Female with . csection 07/10, abd warm, swollen, red, r/o abscess . Comparison: None. Technique: CT abdomen and pelvis with IV and without oral contrast. Automated exposure control and it erative reconstruction technique were employed. The dose-length product was 927.36 mGy-cm. 100 mL Omn ipaque 350 was given IV. Findings: VISUALIZED LOWER CHEST: Normal. UPPER ABDOMINAL ORGANS: Liver: Normal. Gallbladder: Normal. Spleen: Normal. Stomach/duodenum: Normal. Pancreas: Normal. Adrenals: Normal. Kidneys: Right renal cyst. PELVIC ORGANS: The bladder is underfilled with thickened wall. Uterus: Enlarged. Fluid in the cavity. Fluid seen in the lower segment of the uterus suggestive of postoperative change. Fat stranding seen anterior to the uterus and in the subcutaneous tissues in the area. Minimal Fluid seen anterior to the uterus to the right side of the uterus. These may represent post o perative changes but infection cannot be excluded. Follow-up advised. Fat stranding also seen in both sides of the pelvis with minimal fluid. BOWEL AND MESENTERY: Colon: No evidence of diverticulitis. Normal appendix. Small Bowel: Normal. No obstruction. Peritoneum/mesentery: No free air. No mesenteric lymphadenopathy. RETROPERITONEUM: Normal aorta. No retroperitoneal lymphadenopathy. MUSCULOSKELETAL: Superficial soft tissues: The superficial soft tissues are normal. Bones: Normal spine. IMPRESSION: 1. Fat stranding anterior to the uterus and to the right with minimal fluid collections which may be postoperative or due to infection. Clinical correlation advised. I stranding also seen in the pelvis with minimal fluid. 2. Fat stranding in the subcutaneous tissues with minimal air which may be postoperative or inflamma tory. 3. Minimal fluid in the uterine cavity. Reviewed, dictated and finalized at location A. IMPRESSION: 1. Fat stranding anterior to the uterus and to the right with minimal fluid co llections which may be postoperative or due to infection. Clinical correlation advised. I stranding also seen in the pelvis with minimal fluid. 2. Fat stranding in the subcutaneous tissues with minimal air which may be pos toperative or inflammatory. 3. Minimal fluid in the uterine cavity.
--- NOTE | ~2024-07-16 | XR_ITS ---
EXAMINATION: XR chest 2V DATE: 07/16/2024 10:58 INDICATION: Sepsis with fever and chills post recent section TECHNIQUE: frontal and lateral views of the chest were obtained. COMPARISON: None FINDINGS: The lungs are clear with no focal airspace opacities, pulmonary edema, pleural effusion or pneumothor ax. The cardiomediastinal silhouette is normal. Mild thoracic spondylosis. IMPRESSION: 1. No acute cardiopulmonary disease. Reviewed, dictated and finalized at location A.
--- NOTE | ~2024-07-16 | CT_ITS ---
CT abdomen pelvis w con Ordering provider: Sony Navas MD History: 23 years Female with . persistent infection postoperatively . Comparison: July 16, 2024 Technique: CT abdomen and pelvis with IV and without oral contrast. Automated exposure control and it erative reconstruction technique were employed. The dose-length product was 1266.27 mGy-cm. 100 mL Omnipaque 350 was given IV. Findings: VISUALIZED LOWER CHEST: Normal. UPPER ABDOMINAL ORGANS: Liver: Hepatomegaly. The filling defect seen in the portal and splenic vein may represent mixing of b ut a thrombus cannot be excluded. The inferior mesenteric vein is not well demonstrated with possibil ity of thrombus. Ultrasound evaluation advised. Gallbladder: Normal. Spleen: Normal. Stomach/duodenum: Normal. Pancreas: Normal. Adrenals: Normal. Kidneys: Cysts in the right kidney. PELVIC ORGANS: The bladder shows slight thickening of the wall which may indicate cystitis. Irregular ity of the outline of the bladder is seen. Uterus: Enlarged with fluid inside the cavity. Fluid in the area of the section is noted. Mu ltiple hypodensities in the right ovary. Fat stranding is seen anterior to the uterus and both sides around the urinary bladder. Fat stranding seen in the pelvis posteriorly is improved. Hypodensity see n previously anterior to S are decreased. The fat stranding seen in the anterior abdominal wall again demonstrated and slightly increased which may indicate cellulitis.Air bubbles are noted. Fat strandi ng is extending into the sites of the abdominal wall and pelvis. Minimal fluid seen in the presacral area. Trace of fluid is seen in the right paracolic gutter. BOWEL AND MESENTERY: Colon: No evidence diverticulitis. The appendix is normal Small Bowel: Normal. No obstruction. Peritoneum/mesentery: No free air.. No mesenteric lymphadenopathy. RETROPERITONEUM: Normal aorta. No retroperitoneal lymphadenopathy. MUSCULOSKELETAL: Superficial soft tissues: The superficial soft tissues shows fat stranding. Bones: Normal spine. IMPRESSION: 1. Hepatomegaly. 2. Possible filling defect in the portal and splenic vein and improper visualization of the inferior mesenteric vein with the possibility of thrombus. Ultrasound evaluation advised. 3. The collection seen anterior to the uterus are decreased. Fat stranding seen in the sites of the pelvis around the uterus is slightly decreased. 4. Thickened wall of the urinary bladder with irregularity which may indicate cystitis. 5. Fat stranding in the anterior abdominal wall and fundus size which has increased which may indica te cellulitis. Follow-up advised. Reviewed, dictated and finalized at location A. IMPRESSION: 1. Hepatomegaly. 2. Possible filling defect in the portal and splenic vein and improper visuali zation of the inferior mesenteric vein with the possibility of thrombus. Ultras ound evaluation advised. 3. The collection seen anterior to the uterus are decreased. Fat stranding see n in the sites of the pelvis around the uterus is slightly decreased. 4. Thickened wall of the urinary bladder with irregularity which may indicate cystitis. 5. Fat stranding in the anterior abdominal wall and fundus size which has incr eased which may indicate cellulitis. Follow-up advised.
--- NOTE | ~2024-07-16 | US_ITS ---
EXAM: ABDOMEN ULTRASOUND HISTORY: filling defect portal/splenic inferior mesenteric COMPARISON: Reference is made to a CT examination of the abdomen and pelvis dated 07/20/2024 FINDINGS: LIVER: The liver is increased in echogenicity and size measuring 21 cm in longitudinal dimension. Trace perihepatic fluid. SPLEEN: The spleen is enlarged measuring 13 cm in longitudinal dimension. GALLBLADDER: No stones are present within the gallbladder. No gallbladder wall thickening or significant pericholecystic fluid. BILE DUCTS: Common bile duct measures 2.6mm. PANCREAS: Limited evaluation of the pancreas secondary to overlying bowel gas RIGHT KIDNEY: 14 cm. In length. No hydronephrosis or bulky renal calculi. VASCULATURE : The abdominal aorta is nonaneurysmal. The IVC is patent. The portal vein is patent demonstrating hepatopedal flow. The portal splenic confluence is visualized and is unremarkable. No filling defect is appreciated. Limited visualization of the superior mesenteric vein. IMPRESSION: Hepatosplenomegaly. Trace perihepatic fluid. No filling defect within the portal vein or the splenic vein, as detailed above. Reviewed, dictated and finalized at location A. IMPRESSION: Hepatosplenomegaly. Trace perihepatic fluid. No filling defect within the portal vein or the splenic vein, as detailed above .
[2024-07-16 10:36] LABS: Basophils Absolute Auto 0.1 K/mm3 (0.0-0.1); Basophils Percent Auto 0.3 % (0.2-1.2); Eosinophils Absolute Auto 0.2 K/mm3 (0-0.3); Eosinophils Percent Auto 0.7 % (0-4.4); Hematocrit 23.9 % (37.0-47.0); Hemoglobin 7.6 g/dL (12.0-15.0); Immature Granulocyte Absolute 0.49 K/mm3 (0.00-0.031); Immature Granulocyte Percent A 2.3 % (0-0.5); Lymphocytes Absolute Auto 1.46 K/mm3 (0.9-3.2); Lymphocytes Percent Auto 6.8 % (18.3-44.2); Mean Corpuscular HGB Conc 31.8 g/dl (32-36); Mean Corpuscular Volume 88.2 fl (80-100); Mean Platelet Volume 10.3 fl (7.4-10.4); Monocytes Absolute Auto 1.1 K/mm3 (0.1-0.6); Neutrophils Absolute Auto 18.4 K/mm3 (1.3-6.7); Neutrophils Percent Auto 84.9 % (45.5-73.1); Nucleated Red Blood Cells Perc 0.2 % (0.0-0.2); Platelet Count Result 292 k/mm3 (150-375); Red Blood Count 2.71 M/mm3 (4.2-5.4); Red Cell Distribution Width 14.3 % (11.5-14.5); White Blood Count 21.6 K/mm3 (4.5-10.0)
[2024-07-16] MEDS: SODIUM CHLORIDE 0.9% IV 2,500 ML/1,000 ML BAG 999 ML IV CONT ×3 (10:38→12:29)
--- NOTE | 2024-07-16 10:45 | ECG_ITS ---
Test Date: 2024-07-16 11:13:28 Measurements Intervals [place] Rate: 134 P: 68 VA: 136 QRS: 19 QRSD: 82 T: 61 QT: 274 QTc: 410 Interpretive Statements SINUS TACHYCARDIA ABNORMAL RHYTHM ECG No previous ECG available for comparison Electronically Signed On 07-16-2024 12:30:48 CDT by Julien Hays M.D.
[2024-07-16 10:48] LABS: INR 1.3; Prothrombin Time 16.6 Seconds (11.1-14.7)
[2024-07-16 10:49] LABS: Lactic Acid Reflex 1.1 mmol/L (0.7-2.0); Partial Thromboplastin Time 40.5 Seconds (22.3-36.8)
[2024-07-16 11:06] LABS: Alanine Aminotransferase 11 U/L (6-35); Albumin Level 3.1 g/dL (3.5-5.1); Alkaline Phosphatase 100 U/L (38-126); Anion Gap 9 mmol/L (4-12); Aspartate Amino Transferase 16 U/L (14-36); Bilirubin,Total 0.3 mg/dL (0.2-1.3); Blood Urea Nitrogen 12 mg/dL (7-17); Calcium 8.3 mg/dL (8.4-10.2); Carbon Dioxide 22 mmol/L (22-30); Chloride 101 mmol/L (98-107); Estimated CRCL calculation 129 ml/min; Estimated Glomerular Filt Rate > 60; Glucose 104 mg/dL (65-110); Potassium 3.8 mmol/L (3.4-5.0); Sodium 132 mmol/L (137-145)
[2024-07-16] MEDS: ACETAMINOPHEN 500 MG TABLET 1000 MG PO ×2 (11:10→19:41)
[2024-07-16] MEDS: PIPERACILLN/TAZ 3.375GM/NS50ML 3.375 GM/50 ML BAG IVPB ×2 (11:15→17:24)
[2024-07-16 11:35] LABS: BEDSIDEPREGUCG Negative (Negative)
[2024-07-16 11:47] LABS: CRP > 45.0 mg/dL (<1.0)
--- NOTE | 2024-07-16 11:47 | ED_ITS ---
HPI - Abdominal Pain General Chief Complaint: Abdominal Pain Stated Complaint: chills, yellow discharge, pain Time Seen by Provider: 07/16/24 10:14 Source: patient and old records reviewed Mode of arrival: ambulatory Limitations: no limitations History of Present Illness HPI narrative: patient is a 23-year-old female who presents to the ED with report of lower abdominal pain, chills. Patient was recently admitted under the OB services for emergency on 07/10 at 33 weeks gestation. Complicated by a lack of care, placental abruption, placenta previa and PPROM, lack of housing, substance abuse. patient states she was admitted for 3 days. Discharged 07/13. She states upon returning home, she has had intermittent chills, diaphoresis, lower abdominal pain. She has also noticed some yellow drainage from her incision site of her . Denies nausea, vomiting. Denies constipation. Had a bowel movement this morning. Is still having vaginal bleeding. Denies dysuria. Patient states she was supposed to receive a blood transfusion while in the hospital, but declined this because she does not want anyone else's blood in her. Patient is not currently . Child is currently hospitalized at [facility]. [facility] is involved. Related Data Home Medications Medication Instructions Recorded Confirmed omeprazole 10 mg capsule,delayed 10 mg PO DAILY 07/10/24 07/10/24 release Allergies Allergy/AdvReac Type Severity Reaction Status Date / Time No Known Allergies Allergy Verified 04/21/24 14:42 Review of Systems 2 Review of Systems: All systems reviewed & are unremarkable except as noted in HPI. All systems reviewed & are unremarkable except as noted in HPI and below PMFSH Past Medical History Medical History Substance abuse Suppression of menses Family History Family History Mother Breast cancer Cervical cancer Father Diabetes mellitus Social History Social History Smoking status: Current every day smoker Tobacco type: cigarettes and e-cigarettes/vaping Alcohol intake: never Substance use: current Substance use type: marijuana, IV drugs and methamphetamine Do You Feel Safe in your Home?: Yes Lack of Transportation: YES Lack of Food: Often True Current Housing: I Do Not Have Housing Concerned About Future Housing: YES Difficulty Paying Gas/Electric Bills: No Difficulty Paying for Meds: No Currently Unemployed: YES Education: Don't Know Difficulty w/ Childcare or Family Care: YES Living arrangements: homeless Occupation/Education: unemployed Gender identity (if verbalized by the patient): Female Spiritual care concerns: No Exam Narrative: GENERAL: Ill-appearing , somewhat pale, obese with BMI of 32.8, non-toxic, in no acute distress. HEAD: Normocephalic, atraumatic. RESPIRATORY: Airway patent, respirations nonlabored. Occasional coughing on exam. Intermittent expiratory wheezing bilaterally, worse on L. CARDIOVASCULAR: Tachycardic with regular rhythm without murmurs, rubs, or gallops. ABDOMINAL: Low transverse incision with some purulent and serous material oozing. Inferior abdominal wall is diffusely erythematous, indurated, warm to touch. Peau d' orange skin changes. Erythema extends just below umbilicus and across abdomen horizontally towards flank regions. Diffuse tenderness throughout this region. No appreciable focal fluctuance. MUSCULOSKELETAL: Moves all extremities. No gross deformities. SKIN: Warm, dry, pale. NEURO: A&O X3. Speech clear. Cranial nerves II-XII grossly intact. No ataxic movements. PSYCHIATRIC: Somewhat rapid and pressured speech. Course Vital Signs Vital signs: Vital Signs Temperature 99 F 07/16/24 10:04 Pulse Rate 146 H 07/16/24 10:04 Respiratory Rate 18 07/16/24 10:04 Blood Pressure 120/72 07/16/24 10:04 Pulse Oximetry 99 07/16/24 10:04 Oxygen Delivery Room Air 07/16/24 10:04 Temperature 98.5 F 07/16/24 11:40 Pulse Rate 117 H 07/16/24 12:16 Respiratory Rate 15 07/16/24 12:16 Blood Pressure 129/67 07/16/24 12:01 Pulse Oximetry 100 07/16/24 12:01 Oxygen Delivery Room Air 07/16/24 10:04 MDM - Abdominal Pain MDM Narrative Medical decision making narrative: Patient presented to ED with concern for abdominal infection related to recent , abdominal pain, chills, diaphoresis. Complicated operative course with numerous confounding factors. Patient tachycardic and febrile upon arrival. EKG with sinus tach. No significant ST changes. Exam consistent with severe cellulitis of abdominal wall. Will obtain lab and imaging to further evaluate and rule out abscess or intra-abdominal extension. 30 cc per kg fluid boluses initiated. Patient given Tylenol for fever. Blood cultures obtained. CBC with white blood cell count of 21.6. Neutrophil predominance. No bandemia. Hemoglobin 7.6. This is consistent with patient's discharge hemoglobin on 07/11. Normocytic. Platelets within normal range. CMP with sodium of 132. Stable electrolytes, stable kidney function. Normal LFTs. Lactic acid 1.1. Inflammatory markers are notably elevated. CRP greater than 45. Urine with greater than 100 rbc's/WBC. Sent for culture. CXR is clear. Vancomycin and Zosyn started for broad-spectrum coverage. Patient is meeting sepsis criteria. Blood cultures were obtained. CT abdomen/pelvis obtained and showing intra-abdominal stranding anterior to the uterus and to the right. Also showing subcutaneous abdominal wall stran ding. Minimal fluid collection and minimal air noted, postoperative versus inflammatory versus infectious. No focal abscess. Patient will be admitted for further evaluation. Discussed case with DENNIS Bateman, agreed with plan and admission. Patient will be admitted to telemetry floor. Medical Records Attestation: I reviewed the patient's medical records. Lab Data Attestation: I reviewed the patient's lab results. 07/16/24 10:30 07/16/24 10:30 Labs: Lab Results 07/16/24 07/16/24 07/16/24 Range/Units 10:30 11:29 11:32 WBC 21.6 H (4.5-10.0) K/mm3 RBC 2.71 L (4.2-5.4) M/mm3 Hgb 7.6 L (12.0-15.0) g/dL Hct 23.9 L (37.0-47.0) % MCV 88.2 (80-100) fl MCH 28.0 (26-34) pg MCHC 31.8 L (32-36) g/dl RDW 14.3 (11.5-14.5) % Plt Count 292 (150-375) k/mm3 MPV 10.3 (7.4-10.4) fl Immature Gran % (Auto) 2.3 H (0-0.5) % Neut % (Auto) 84.9 H (45.5-73.1) % Lymph % (Auto) 6.8 L (18.3-44.2) % [place] % (Auto) 5.0 (2.6-8.5) % Eos % (Auto) 0.7 (0-4.4) % Baso % (Auto) 0.3 (0.2-1.2) % Lymph # (Auto) 1.46 (0.9-3.2) K/mm3 [place] # (Auto) 1.1 H (0.1-0.6) K/mm3 Eos # (Auto) 0.2 (0-0.3) K/mm3 Baso # (Auto) 0.1 (0.0-0.1) K/mm3 Abs Immat Gran (auto) 0.49 H (0.00-0.031) K/mm3 Absolute Neuts (auto) 18.4 H (1.3-6.7) K/mm3 Absolute Nucleated RBC 0.040 H (0.0-0.012) K/mm3 Nucleated RBC % 0.2 (0.0-0.2) % PT 16.6 H D (11.1-14.7) Seconds INR 1.3 APTT 40.5 H (22.3-36.8) Seconds Sodium 132 L (137-145) mmol/L Potassium 3.8 (3.4-5.0) mmol/L Chloride 101 (98-107) mmol/L Carbon Dioxide 22 (22-30) mmol/L Anion Gap 9 (4-12) mmol/L BUN 12 D (7-17) mg/dL Creatinine 0.60 L (0.7-1.0) mg/dL Estim Creat Clear Calc 129 ml/min Estimated GFR > 60 (59 - ) Glucose 104 (65-110) mg/dL Lactic Acid 1.1 (0.7-2.0) mmol/L Calcium 8.3 L (8.4-10.2) mg/dL Total Bilirubin 0.3 (0.2-1.3) mg/dL AST 16 (14-36) U/L ALT 11 (6-35) U/L Alkaline Phosphatase 100 (38-126) U/L C-Reactive Protein > 45.0 H (<1.0) mg/dL Total Protein 7.0 (6.3-8.2) g/dL Albumin 3.1 L (3.5-5.1) g/dL Urine Color Dark yellow (Yellow) Urine Appearance Cloudy H (Clear) Urine pH 6.0 (5.0-9.0) Ur Specific Christopher 1.021 (1.001-1.035) Urine Protein 2+ H (Negative) mg/dL Urine Glucose (UA) Negative (Negative) mg/dL Urine Ketones Trace H (Negative) mg/dL Ur Blood (Man) 3+ H (Negative) Urine Nitrate Negative (Negative) Urine Bilirubin Negative (Negative) Urine Urobilinogen 1.0 (<2.0) mg/dL Leukocyte Esterase Rfl 3+ H (Negative) CAMERON/UL Urine RBC >100 H (0-2) /hpf Urine WBC >100 H (0-3) /hpf Ur Squamous Epith Cells None seen (Few) /hpf Urine Bacteria None seen /hpf Urine Casts 0-2 POC Urine HCG, Qual Negative (Negative) Urine Opiates Screen Positive A (Negative) Urine Methadone Screen Negative (Negative) Ur Barbiturates Screen Negative (Negative) Ur Phencyclidine Scrn Negative (Negative) Ur Amphetamine Screen Pending U Benzodiazepines Scrn Negative (Negative) Urine Cocaine Screen Negative (Negative) U Cannabinoids Screen Positive A (Negative) Blood Type O Positive Antibody Screen Negative Imaging Data Attestation: I personally reviewed and interpreted this imaging study as follows: Radiologist's impression: ITS Impressions Chest X-Ray 07/16/24 11:00 IMPRESSION: 1. No acute cardiopulmonary disease. Abdomen/Pelvis CT 07/16/24 11:46 IMPRESSION: 1. Fat stranding anterior to the uterus and to the right with minimal fluid collections which may be postoperative or due to infection. Clinical correlation advised. I stranding also seen in the pelvis with minimal fluid. 2. Fat stranding in the subcutaneous tissues with minimal air which may be postoperative or inflammatory. 3. Minimal fluid in the uterine cavity. ECG Data EKG #1: Attestation: I personally reviewed and interpreted this ECG as follows: ECG completion date: 07/16/24 ECG completion time: 11:13 tachycardia (134), sinus rhythm and non-specific ST changes Discharge Plan Discharge Clinical Impression: Intra-abdominal infection after surgical procedure, Abdominal wall cellulitis, Abnormal finding on urinalysis, Methamphetamine abuse Sepsis Qualifiers: Sepsis type: sepsis due to unspecified organism Sepsis acute organ dysfunction status: unspecified Qualified Code(s): A41.9 - Sepsis, unspecified organism Patient Disposition: Still a Patient Condition: Stable Prescriptions: No Action omeprazole 10 mg Capsule,Delayed Release(Dr/Ec) 10 mg PO DAILY hydrocodone-acetaminophen 5-325 mg Tablet 1 tablet PO Q6H PRN (Reason: Pain Rated 4-6) Qty: 15 0RF docusate sodium 100 mg Capsule 100 mg PO BID Qty: 60 0RF ibuprofen 600 mg Tablet 600 mg PO Q6H Qty: 30 0RF Follow-up/Referrals: UNKNOWN,DOCTOR [Primary Care Provider] -
[2024-07-16 11:49] LABS: Add Urine Microscopic? YES; Appearance Urine Cloudy (Clear); Bacteria Urine None Seen /hpf; Bilirubin Urine Negative (Negative); Blood Urine 3+ (Negative); Color Urine Dark Yellow (Yellow); Glucose Urine UA Negative (Negative); Ketones Urine Trace mg/dL (Negative); Leukocyte Esterase Ur 3+ LEU/UL (Negative); Nitrate Urine Negative (Negative); Non Pathogenic Casts 0-2; Protein Urine 2+ mg/dL (Negative); RBC Urine >100 /hpf (0-2); Specific Grav Ur 1.021 (1.001-1.035); Squamous Epithelial Cell Urine None Seen /hpf (Few); WBC Urine >100 /hpf (0-3)
[2024-07-16] MEDS: IPRATROPIUM 0.5 MG/ALBUTEROL SULFATE 2.5 MG AMPUL.NEB 3 ML INHALATION (12:06)
[2024-07-16] MEDS: VANCOMYCIN 2,000 MG/NS 500 ML 2,000 MG/500 ML BAG 250 MG IVPB (12:12)
[2024-07-16 12:28] LABS: Barbiturate Screen Urine Negative (Negative); Benzodiazepines Screen Urine Negative (Negative)
[2024-07-16 12:30] LABS: Cannabinoid Screen Urine Positive (Negative); Cocaine Screen Urine Negative (Negative); Methadone Screen Urine Negative (Negative); Opiate Screen Urine Positive (Negative); Phencyclidine Screen Urine Negative (Negative)
[2024-07-16 12:57] LABS: Amphetamine Screen Urine Positive (Negative)
[2024-07-16] MEDS: SODIUM CHLORIDE 0.9% IV 1,000 ML 100 ML IV CONT (15:00)
--- NOTE | 2024-07-16 15:05 | PC.NURSE ---
meal tray ordered for patient
--- NOTE | 2024-07-16 15:30 | ADMGEN ---
This patient, Frances Pandey, was admitted to Medical Room 252-01. Patient/family oriented to hospital policies and general routines including ID bracelet, bed and alarms, visiting hours, pain management, procedures, bathroom and other care routines, personal items, smoking policy, room service/diet, and visiting hours. Information on how to activate the Rapid Response Team has been discussed. Patient/Family are encouraged to report perceived risks to care and to ask questions if they do not understand what they are told or what they should do.
--- NOTE | 2024-07-16 17:20 | PM.OBPRVD ---
OB - Vaginal Delivery Note Procedure Delivery date: 07/16/24 Events: Other (erase wrong pt) Route of delivery: Episiotomy description: None Delivery repair: vicryl Specimen: No
[2024-07-16] MEDS: MORPHINE SULFATE (*CRX) 2 MG/ML INJ IV PUSH (20:01)
[2024-07-17] VITALS (11 sets, daily range): BP systolic 120–131; BP diastolic 68–76; PULSE 96–129; RESP 18–20; TEMP 36.6–37.9; O2SAT 99–100
[2024-07-17] MEDS: PIPERACILLN/TAZ 3.375GM/NS50ML 3.375 GM/50 ML BAG IVPB ×4 (00:05→18:17)
[2024-07-17] MEDS: VANCOMYCIN 1,500 MG/NS 500 ML 1,500 MG/500 ML BAG 250 MG IVPB ×2 (00:43→12:02)
[2024-07-17] MEDS: MORPHINE SULFATE (*CRX) 2 MG/ML INJ IV PUSH ×3 (05:05→18:23)
[2024-07-17] MEDS: SODIUM CHLORIDE 0.9% IV 1,000 ML 100 ML IV CONT ×2 (05:06→19:55)
[2024-07-17 05:58] LABS: Estimated CRCL calculation 156 ml/min; Estimated Glomerular Filt Rate > 60
--- NOTE | 2024-07-17 07:02 | P.HP_ITS ---
H&P: HPI History of Present Illness Date/Time: 07/17/24 07:02 Chief Complaint: post op c section wound infection Narrative: Patient is a 23 year old who presents for fevers and drainage from her c section incision. She is s/p PLTCS 1 week ago, complicated by placental abruption, PPROM and placenta previa. She has a history of methamphetamine and MJ use. She is currently homeless. She reports fevers for 2 days accompanied by pain and discharge from her c section incision. She denies abnormal vaginal bleeding, nausea or vomiting. On admission, her WBC was 21. She was noted to have cellulitis from her incision up to her umbilicus. She has serosanguinous and purulent discharge from her incision. Abdominal CT scan showed normal postoperative changes vs infection. No obvious abscess formation. This morning she reports some sweats overnight however no fevers. 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 Review of Systems Review of Systems: All systems reviewed & are unremarkable except as noted in HPI and below PMFSH Past Medical History Medical History Substance abuse Suppression of menses Family History Family History Mother Cervical cancer Breast cancer Father Diabetes mellitus Other Brain cancer Social History Social History Smoking packs per day: 0.5 Smoking cigarettes per day: 10.0 Years smoked: 6 Smoking pack-years: 3.00 Smoking status: Current every day smoker Tobacco type: cigarettes Alcohol intake: never Substance use: current Substance use type: marijuana and methamphetamine Do You Feel Safe in your Home?: Yes Lack of Transportation: YES Lack of Food: Often True Current Housing: I Do Not Have Housing Concerned About Future Housing: YES Difficulty Paying Gas/Electric Bills: No Difficulty Paying for Meds: No Currently Unemployed: YES Education: Grade School Difficulty w/ Childcare or Family Care: YES Living arrangements: homeless Occupation/Education: unemployed Gender identity (if verbalized by the patient): Female Spiritual care concerns: No Meds Home Medications and Allergies Home Medications Medication Instructions Recorded Confirmed Type hydrocodone 5 mg-acetaminophen 325 1 tablet PO Q6H PRN Pain Rated 4-6 07/13/24 07/16/24 Rx mg tablet #15 tabs Allergies Allergy/AdvReac Type Severity Reaction Status Date / Time No Known Allergies Allergy Verified 07/16/24 15:56 Vital Signs Vital Signs - 24 hr 07/16/24 10:04 07/16/24 11:03 07/16/24 12:06 Temperature 99 F 100.5 F H Pulse Rate 146 H 131 H 121 H Respiratory Rate 18 19 15 Blood Pressure 120/72 111/65 Pulse Oximetry 99 100 Oxygen Delivery Room Air 07/16/24 12:16 07/16/24 11:40 07/16/24 10:19 Temperature 98.5 F Pulse Rate 117 H 142 H Respiratory Rate 15 15 Blood Pressure 113/65 Pulse Oximetry 99 Oxygen Delivery 07/16/24 11:13 07/16/24 11:49 07/16/24 12:01 Temperature Pulse Rate 132 H 130 H 122 H Respiratory Rate 27 H 13 18 Blood Pressure 111/65 115/51 L 129/67 Pulse Oximetry 100 100 100 Oxygen Delivery 07/16/24 12:31 07/16/24 13:01 07/16/24 13:31 Temperature Pulse Rate 123 H 116 H 114 H Respiratory Rate 14 25 H 19 Blood Pressure 142/76 H 133/68 139/77 Pulse Oximetry 100 100 100 Oxygen Delivery 07/16/24 14:34 07/16/24 19:41 07/16/24 20:36 Temperature 98.1 F 103.1 F H 100.3 F H Pulse Rate 105 H Respiratory Rate 30 H Blood Pressure 107/66 Pulse Oximetry 100 Oxygen Delivery 07/16/24 19:40 07/16/24 20:40 07/16/24 20:00 Temperature 103.1 F H 100.3 F H Pulse Rate 137 H 139 H Respiratory Rate 20 Blood Pressure 91/63 L Pulse Oximetry 100 Oxygen Delivery 07/17/24 00:00 07/17/24 04:00 07/17/24 05:15 Temperature 100.2 F H Pulse Rate 113 H 96 117 H Respiratory Rate 18 Blood Pressure 120/72 Pulse Oximetry 100 Oxygen Delivery 07/17/24 05:51 Temperature 99.8 F H Pulse Rate Respiratory Rate Blood Pressure Pulse Oximetry Oxygen Delivery Exam Const: General: comfortable and no acute distress HENMT: Mouth: Yes moist mucous membranes Eyes: General: appearance normal, both eyes and all related structures Resp: Effort & Inspection: normal respiratory effort Cardio: Rate: regular rate GI: Other: erythema extending from c section incision to umbilicus; serosanguinous discharge; induration present; no focal fluctuance; diffuse tenderness to palpation Skin: General skin exam: erythema (around incision) Extrem: General: normal to inspection Psych: Mental Status: mental status grossly normal H&P: Results Labs Labs: Short CBC 07/16/24 Range/Units 10:30 WBC 21.6 H (4.5-10.0) K/mm3 Hgb 7.6 L (12.0-15.0) g/dL Hct 23.9 L (37.0-47.0) % Plt Count 292 (150-375) k/mm3 BMP 07/16/24 07/17/24 10:30 05:31 Sodium 132 L Potassium 3.8 Chloride 101 Carbon Dioxide 22 BUN 12 D Creatinine 0.60 L 0.50 L Glucose 104 Calcium 8.3 L Liver Function 07/16/24 Range/Units 10:30 Total Bilirubin 0.3 (0.2-1.3) mg/dL AST 16 (14-36) U/L ALT 11 (6-35) U/L Alkaline Phosphatase 100 (38-126) U/L Albumin 3.1 L (3.5-5.1) g/dL Urine 07/16/24 Range/Units 11:29 Urine Color Dark yellow (Yellow) Urine Appearance Cloudy H (Clear) Urine pH 6.0 (5.0-9.0) Ur Specific [place] 1.021 (1.001-1.035) Urine Protein 2+ H (Negative) mg/dL Urine Glucose (UA) Negative (Negative) mg/dL Assessment and Plan Assessment and plan (1) Intra-abdominal infection after surgical procedure: Code(s): T81.40XA - Infection following a procedure, unspecified, initial encounter Status: Acute Assessment and Plan: - s/p PLTCS 07/10/24 - reports fevers and abdominal tenderness starting 07/14 - incision indurated and erythematous - serosanguinous drainage from incision - continue IV vanc and zosyn - blood cultures pending - CT scan c/w postop changes vs endomyometritis - plan for IV antibiotics until 48 hours afebrile - will discharge with 1 week of PO antibiotics when appropriate (2) Abdominal wall cellulitis: Code(s): L03.311 - Cellulitis of abdominal wall Status: Acute (3) Anemia: Code(s): D64.9 - Anemia, unspecified Status: Acute Assessment and Plan: - Hgb 6.3 this AM, downtrended from 7.6 yesterday - discussed need for blood transfusion given severe anemia and sepsis; discussed blood is tested for communicable diseases which are extremely rare - patient declines blood transfusion at this time after discussion of risks and benefits
[2024-07-17 07:19] LABS: Basophils Percent Auto 0.3 % (0.2-1.2); Eosinophils Absolute Auto 0.1 K/mm3 (0-0.3); Eosinophils Percent Auto 1.2 % (0-4.4); Immature Granulocyte Absolute 0.18 K/mm3 (0.00-0.031); Immature Granulocyte Percent A 1.8 % (0-0.5); Lymphocytes Absolute Auto 1.14 K/mm3 (0.9-3.2); Lymphocytes Percent Auto 11.7 % (18.3-44.2); Mean Corpuscular HGB Conc 31.7 g/dl (32-36); Mean Corpuscular Hemoglobin 28.3 pg (26-34); Mean Corpuscular Volume 89.2 fl (80-100); Mean Platelet Volume 9.9 fl (7.4-10.4); Monocytes Absolute Auto 0.7 K/mm3 (0.1-0.6); Monocytes Percent Auto 6.9 % (2.6-8.5); Neutrophils Absolute Auto 7.6 K/mm3 (1.3-6.7); Neutrophils Percent Auto 78.1 % (45.5-73.1); Nucleated Red Blood Cells Perc 0.2 % (0.0-0.2); Platelet Count Result 211 k/mm3 (150-375); Red Blood Count 2.23 M/mm3 (4.2-5.4); Red Cell Distribution Width 14.5 % (11.5-14.5); White Blood Count 9.8 K/mm3 (4.5-10.0)
[2024-07-17 07:27] LABS: Hematocrit 19.9 % (37.0-47.0); Hemoglobin 6.3 g/dL (12.0-15.0)
--- NOTE | 2024-07-17 15:53 | P.CONIM_ITS ---
Assessment and Plan Assessment and plan (1) Sepsis: Qualifiers: Sepsis acute organ dysfunction status: unspecified Sepsis type: sepsis due to unspecified organism Qualified Code(s): A41.9 - Sepsis, unspecified organism Code(s): A41.9 - Sepsis, unspecified organism Status: Acute Assessment and Plan: - meets SIRS criteria: HR, WBC. No hypotension or hypoxia. - lactic acid: 1.1 - 2500 bolus given, now on 100 mL/hour - suspected source: Abdominal wall cellulitis - started on vancomycin and Zosyn on 07/16 - blood cultures drawn on 07/16, preliminary growth of Gram-positive cocci in clusters. Continue to follow. - UA concerning for UTI, culture pending (2) Intra-abdominal infection after surgical procedure: Code(s): T81.40XA - Infection following a procedure, unspecified, initial encounter Status: Acute Assessment and Plan: -CT abdomen/pelvis 1. Fat stranding anterior to the uterus and to the right with minimal fluid collections which may be postoperative or due to infection. Clinical correlation advised. I stranding also seen in the pelvis with minimal fluid. 2. Fat stranding in the subcutaneous tissues with minimal air which may be postoperative or inflammatory. 3. Minimal fluid in the uterine cavity. - started on Zosyn and Vanc, awaiting sensitivities for blood cultures. gram+ cocci in clusters to date, 11/15. - analgesics and antipyretics p.r.n. - serial abdominal exams (3) Anemia: Qualifiers: Anemia type: unspecified type Qualified Code(s): D64.9 - Anemia, unspecified Code(s): D64.9 - Anemia, unspecified Status: Acute Assessment and Plan: - Hgb 7.6 -> 6.3 - has declined transfusion - monitor - start multivitamin (4) Asthma: Qualifiers: Asthma severity: mild Asthma persistence: unspecified Asthma complication type: unspecified Qualified Code(s): J45.909 - Unspecified asthma, uncomplicated Code(s): J45.909 - Unspecified asthma, uncomplicated Status: Acute Assessment and Plan: - patient reports hx of asthma, faint exp wheeze on exam - add albuterol inhaler, patient declines using it but will make available Plan Diet: Regular GI Prophylaxis: Not currently indicated DVT Prophylaxis: Low risk Lines: Peripheral Code Status: Full code HPI Date of Consult Consult date: 07/17/24 Requesting Physician: Rivera Jack MD Primary Care Provider: UNKNOWN,DOCTOR Consult Narrative Reason for consult: Positive Blood Cultures Narrative: 23 y/o F presented here with lower abdominal pain and chills with PMH of recent and substance abuse. The patient delivered on 07/10/24 via at [facility] at 33 weeks. was complicated by lack of care, placenta previa, placental abruption, PPROM, substance abuse, and lack of housing. She was discharged from the hospital on 07/13 after 3 days of care inpatient. She returned on 07/16/2024 for re-evaluation after she noticed yellow discharge from her C- section incision site. She endorsed associated lower abdominal pain, diaphoresis, and chills. Initial ED workup showed anemia with a hemoglobin of 7.6, previously 7.4 on 07/11/2024. The patient was offered a blood transfusion post , however she declined stating she did not want someone else's blood inside her. CT of the abdomen/pelvis was concerning for abdominal wall cellulitis without abscess formation. UA suspicious for UTI and urine drug screen positive for opiates, amphetamine, and cannabis. Blood cultures and a urine culture were obtained during initial assessment. Blood culture showing preliminary growth of Gram-positive cocci in clusters. The patient is currently endorsing significant discomfort to incision site and concerns about constipation. Reports she is feeling slightly improved today. Initial VS at presentation (07/16/2024): 99? F, HR 146, RR 18, 120/72, and 99% on RA. Review of Systems Review of Systems: All systems reviewed & are unremarkable except as noted in HPI and below PMFSH Past Medical History Medical History (Updated 07/17/24 @ 17:35 by Bailey Johns APRN) Asthma Homelessness Marijuana use Methamphetamine abuse Placenta previa Poor social situation premature rupture of membranes (PPROM) with unknown onset of labor Substance abuse Tobacco abuse Surgical History Surgical History History of Family History Family History Mother Cervical cancer Breast cancer Father Diabetes mellitus Other Brain cancer Social History Social History Smoking packs per day: 0.5 Smoking cigarettes per day: 10.0 Years smoked: 6 Smoking pack-years: 3.00 Smoking status: Current every day smoker Tobacco type: cigarettes Alcohol intake: never Substance use: current Substance use type: marijuana and methamphetamine Do You Feel Safe in your Home?: Yes Lack of Transportation: YES Lack of Food: Often True Current Housing: I Do Not Have Housing Concerned About Future Housing: YES Difficulty Paying Gas/Electric Bills: No Difficulty Paying for Meds: No Currently Unemployed: YES Education: Grade School Difficulty w/ Childcare or Family Care: YES Living arrangements: homeless Occupation/Education: unemployed Gender identity (if verbalized by the patient): Female Spiritual care concerns: No Meds Home Medications and Allergies Home Medications Medication Instructions Recorded Confirmed Type hydrocodone 5 mg-acetaminophen 325 1 tablet PO Q6H PRN Pain Rated 4-6 07/13/24 07/16/24 Rx mg tablet #15 tabs Allergies Allergy/AdvReac Type Severity Reaction Status Date / Time No Known Allergies Allergy Verified 07/16/24 15:56 Vital Signs Vital Signs - 24 hr 07/16/24 19:41 07/16/24 20:36 07/16/24 19:40 Temperature 103.1 F H 100.3 F H 103.1 F H Pulse Rate 137 H Respiratory Rate 20 Blood Pressure 91/63 L Pulse Oximetry 100 07/16/24 20:40 07/16/24 20:00 07/17/24 00:00 Temperature 100.3 F H Pulse Rate 139 H 113 H Respiratory Rate Blood Pressure Pulse Oximetry 07/17/24 04:00 07/17/24 05:15 07/17/24 05:51 Temperature 100.2 F H 99.8 F H Pulse Rate 96 117 H Respiratory Rate 18 Blood Pressure 120/72 Pulse Oximetry 100 Exam Narrative: wheeze more prom on left. indursated/eryth/serosang/yellowtinged disharge Const: General: comfortable and no acute distress Other: , female, modestly ill-appearing HENMT: Face/Nose/Sinus: Normal nares present Mouth: Yes moist mucous membranes Eyes: General: appearance normal, both eyes and all related structures Sclera: sclerae normal Pupils: Equal, round and reactive pupils present EOM: EOMs intact bilaterally Resp: Effort & Inspection: normal respiratory effort Other: Faint expiratory wheeze more prominent on the right Cardio: Rate: tachycardic Rhythm: regular rhythm Other: S1-S2 present without murmur, rub, ectopy GI: Other: Upper abdomen soft and nontender. Pannus and incision site indurated, erythematous, with scant serosanguineous drainage. Tenderness and heat to the touch. Skin: General skin exam: normal color and no rashes or lesions noted Other: Induration to her pannus and mons pubis with erythema and heat. Scant serosanguineous drainage from incision. Neuro: Speech: normal speech Motor exam (neuro): 5/5 motor strength present throughout Sensory Exam: normal sensation Other: A&O x4 Extrem: General: normal to inspection Psych: Mental Status: mental status grossly normal Affect: Sad affect present and Anxious affect present Other: Fair insight and judgment Results Labs 07/17/24 05:30 07/17/24 05:31 Labs: Short CBC 07/17/24 Range/Units 05:30 WBC 9.8 (4.5-10.0) K/mm3 Hgb 6.3 L* (12.0-15.0) g/dL Hct 19.9 L* (37.0-47.0) % Plt Count 211 (150-375) k/mm3 BMP 07/17/24 05:31 Creatinine 0.50 L Quality If No VTE Prophylaxis Answer both mechanical and pharmacologic: Reason no mechanical VTE proph: low risk/not indicated Reason no pharmacologic proph: low risk/not indicated Hospitalist MIPS Advance Care Plan I have confirmed that the patient's Advanced Care Plan is present, code status is documented, or surrogate decision maker is listed in patient medical record.: Yes Medication Reconciliation I have utilized all available resources to obtain, update and [facility] (includes all prescriptions, OTC, herbals, cannabis, and nutritional supplements).: Yes
[2024-07-17] MEDS: HYDROcodone/acetaminophen (*CRX) 5-325 MG TABLET 1 TAB PO (19:49)
[2024-07-17] MEDS: DOCUSATE SODIUM 100 MG CAPSULE PO (19:49)
[2024-07-18] VITALS (9 sets, daily range): BP systolic 118–126; BP diastolic 78–88; PULSE 86–119; RESP 18–20; TEMP 36.6–37.3; O2SAT 99–100
[2024-07-18] MEDS: PIPERACILLN/TAZ 3.375GM/NS50ML 3.375 GM/50 ML BAG IVPB ×4 (00:21→17:11)
[2024-07-18] MEDS: MORPHINE SULFATE (*CRX) 2 MG/ML INJ IV PUSH ×3 (00:50→22:39)
[2024-07-18 01:27] LABS: Vancomycin Trough 5.1 ug/mL (10.0-20.0)
[2024-07-18] MEDS: VANCOMYCIN 2,000 MG/NS 500 ML 2,000 MG/500 ML BAG 250 MG IVPB ×3 (03:07→17:48)
[2024-07-18 05:32] LABS: Estimated CRCL calculation 156 ml/min; Estimated Glomerular Filt Rate > 60
[2024-07-18 06:11] LABS: Hematocrit 21.6 % (37.0-47.0); Mean Corpuscular HGB Conc 30.1 g/dl (32-36); Mean Corpuscular Hemoglobin 27.7 pg (26-34); Mean Corpuscular Volume 91.9 fl (80-100); Mean Platelet Volume 10.3 fl (7.4-10.4); Platelet Count Result 235 k/mm3 (150-375); Red Blood Count 2.35 M/mm3 (4.2-5.4); Red Cell Distribution Width 14.5 % (11.5-14.5); White Blood Count 9.7 K/mm3 (4.5-10.0)
[2024-07-18 06:14] LABS: Hemoglobin 6.5 g/dL (12.0-15.0)
[2024-07-18 06:15] LABS: Anion Gap 7 mmol/L (4-12); Blood Urea Nitrogen 8 mg/dL (7-17); Calcium 8.3 mg/dL (8.4-10.2); Carbon Dioxide 23 mmol/L (22-30); Chloride 105 mmol/L (98-107); Estimated CRCL calculation 156 ml/min; Estimated Glomerular Filt Rate > 60; Glucose 84 mg/dL (65-110); Potassium 4.3 mmol/L (3.4-5.0); Sodium 135 mmol/L (137-145)
[2024-07-18] MEDS: HYDROcodone/acetaminophen (*CRX) 5-325 MG TABLET 1 TAB PO ×2 (07:34→20:11)
[2024-07-18] MEDS: MULTIVITAMINS THERAPEUTIC TAB (*BKC) 1 TABLET PO (07:37)
[2024-07-18] MEDS: DOCUSATE SODIUM 100 MG CAPSULE PO ×2 (07:37→20:11)
--- NOTE | 2024-07-18 07:43 | P.PNIM_ITS ---
Progress Note: A&P Assessment and Plan (1) Asthma: Qualifiers: Asthma complication type: unspecified Asthma persistence: unspecified Asthma severity: mild Qualified Code(s): J45.909 - Unspecified asthma, uncomplicated Code(s): J45.909 - Unspecified asthma, uncomplicated Status: Acute (2) Sepsis: Qualifiers: Sepsis acute organ dysfunction status: unspecified Sepsis type: sepsis due to unspecified organism Qualified Code(s): A41.9 - Sepsis, unspecified organism Code(s): A41.9 - Sepsis, unspecified organism Status: Acute (3) Intra-abdominal infection after surgical procedure: Code(s): T81.40XA - Infection following a procedure, unspecified, initial encounter Status: Acute (4) Abdominal wall cellulitis: Code(s): L03.311 - Cellulitis of abdominal wall Status: Acute Plan (1) Sepsis: Qualifiers: Sepsis acute organ dysfunction status: unspecified Sepsis type: sepsis due to unspecified organism Qualified Code(s): A41.9 - Sepsis, unspecified organism Code(s): A41.9 - Sepsis, unspecified organism Status: Acute Assessment and Plan: - meets SIRS criteria: HR, WBC. No hypotension or hypoxia. - lactic acid: 1.1 - 2500 bolus given, now on 100 mL/hour - suspected source: Abdominal wall cellulitis - started on vancomycin and Zosyn on 07/16 - blood cultures drawn on 07/16, preliminary growth of Gram-positive cocci in clusters. - UA concerning for UTI, culture pending 07/18: pending blood culture patient had fever yesterday afternoon 100, no fever overnight, continue current antibiotics (2) Intra-abdominal infection after surgical procedure: Code(s): T81.40XA - Infection following a procedure, unspecified, initial encounter Status: Acute Assessment and Plan: -CT abdomen/pelvis 1. Fat stranding anterior to the uterus and to the right with minimal fluid collections which may be postoperative or due to infection. Clinical correlation advised. I stranding also seen in the pelvis with minimal fluid. 2. Fat stranding in the subcutaneous tissues with minimal air which may be postoperative or inflammatory. 3. Minimal fluid in the uterine cavity. - started on Zosyn and Vanc, awaiting sensitivities for blood cultures. gram+ cocci in clusters to date, 11/15. - analgesics and antipyretics p.r.n. - serial abdominal exams acute on chronic anemia hemoglobin 10.9 on July 10, recent surgical treatment, suspecting acute blood loss anemia on the base of chronic anemia - Hgb 7.6 -> 6.3>6.5 - has declined transfusion - monitor - start multivitamin iron panel suggests iron deficiency, iron 13, 5 saturation% pending reticulocyte, haptoglobin start Venofer 200 mg IV once, start ferrous sulfate 325 mg b.i.d. p.o. (4) Asthma: Qualifiers: Asthma severity: mild Asthma persistence: unspecified Asthma complication type: unspecified Qualified Code(s): J45.909 - Unspecified asthma, uncomplicated Code(s): J45.909 - Unspecified asthma, uncomplicated Status: Acute Assessment and Plan: - patient reports hx of asthma, faint exp wheeze on exam - add albuterol inhaler, patient declines using it but will make available Subjective Date/time seen: 07/18/24 07:43 Interval history: Patient is hemodynamically stable, has tachycardia, no fever over the night, temperature 100? decreased yesterday to p.m. labs reviewed, hemoglobin low, 6.5, stable. patient has a general weakness, denies shortness breath Exam Narrative: GENERAL: ill-appearing in no acute distress. Well-nourished. - EYES: EOMI. Anicteric. pale - HENT: Moist mucous membranes. - LUNGS: Clear to auscultation bilateral ly, no wheezing, rhonchi, or rales. - CARDIOVASCULAR: Regular rate and rhyth m. No murmur. No JVD. tachycardia - ABDOMEN: Soft, non-tender and non-dist ended. No palpable masses. - EXTREMITIES: No edema. Peripheral puls es 2+. Non-tender. - NEUROLOGIC: No focal neurological defi cits. CN II-XII grossly intact. general weakness - PSYCHIATRIC: Awake, Alert and oriented x 3. Appropriate mood and affect. - SKIN: No rashes or lesions. Warm. - LYMPH: No cervical lymphadenopathy. Objective Data Vital Signs Vital Signs: Vital Signs - 24 hr 07/17/24 14:00 07/17/24 08:00 07/17/24 12:00 Temperature 100.0 F H Pulse Rate 105 H 115 H 106 H Respiratory Rate 20 Blood Pressure 127/76 Pulse Oximetry 99 Oxygen Delivery 07/17/24 16:00 07/17/24 19:39 07/17/24 19:55 Temperature 97.8 F Pulse Rate 105 H 110 H 110 H Respiratory Rate 20 20 Blood Pressure 131/68 Pulse Oximetry 100 100 Oxygen Delivery Room Air 07/17/24 20:00 07/18/24 03:28 07/18/24 00:00 Temperature 97.8 F Pulse Rate 129 H 107 H 99 Respiratory Rate 20 Blood Pressure 126/88 Pulse Oximetry 100 Oxygen Delivery 07/18/24 04:00 Temperature Pulse Rate 119 H Respiratory Rate Blood Pressure Pulse Oximetry Oxygen Delivery Intake/Output Intake/Output: Intake & Output 07/15/24 07/16/24 07/17/24 07/18/24 23:59 23:59 23:59 23:59 Intake Total 2889.5 5675 940 Output Total 0 Balance 2889.5 5675 940 Meds/Results Medications: Active Medications Generic Name Dose Route Start Last Admin Trade Name Freq PRN Reason Stop Dose Admin Acetaminophen 1,000 mg 07/16/24 12:40 07/16/24 19:41 Acetaminophen 500 Mg Tablet PO 1,000 mg Q6H PRN Administration Mild Pain (1-3) or Fever Hydrocodone Bitart/Acetaminophen 1 tab 07/17/24 16:07 07/18/24 07:34 Hydrocodone/Acetaminophen (*Crx) 5-325 Mg Tablet PO 1 tab Q6H PRN Administration Pain Rated 4-6 Albuterol 2 puff 07/17/24 17:35 Albuterol Sulfate (*Sp) Aerosol 1 Puff INHALATION Q6HRT PRN Shortness Of Breath Docusate Sodium 100 mg 07/17/24 21:00 07/18/24 07:37 Docusate Sodium 100 Mg Capsule PO 100 mg Q12HR JIE Administration Piperacillin/Tazobactam/Dextrose 3.375 gm in 50 mls @ 100 mls/hr 07/16/24 18:00 07/18/24 07:31 Zosyn 3.375 Gm/Ns 50 Ml IVPB 100 mls/hr Q6H JIE Administration Sodium Chloride 1,000 mls @ 100 mls/hr 07/16/24 12:50 07/17/24 19:55 Normal Saline Iv IV CONT 100 mls/hr .Q10H JIE Administration Vancomycin HCl 2,000 mg in 500 mls @ 250 mls/hr 07/18/24 02:00 07/18/24 05:07 Vancomycin 2,000 Mg/Ns 500 Ml IVPB Infused Q8H JIE Infusion Morphine Sulfate 2 mg 07/16/24 12:40 07/18/24 03:59 Morphine Sulfate (*Crx) 2 Mg/Ml Inj IV PUSH 2 mg Q2H PRN Administration Pain Rated 7-10 Multivitamins Therapeutic 1 tablet 07/18/24 09:00 07/18/24 07:37 Multivitamins Therapeutic Tab (*Bkc) PO 1 tablet QAM JEI Administration Ondansetron HCl 4 mg 07/16/24 12:40 Ondansetron Inj 4 Mg/2 Ml Vial IV PUSH Q4H PRN Nausea Polyethylene Glycol 17 gm 07/17/24 17:35 Polyethylene Glycol 3350 17 Gm Powd.Pack PO QAM PRN Constipation Radiology Results: ITS Impressions Chest X-Ray 07/16/24 11:00 IMPRESSION: 1. No acute cardiopulmonary disease. Abdomen/Pelvis CT 07/16/24 11:46 IMPRESSION: 1. Fat stranding anterior to the uterus and to the right with minimal fluid collections which may be postoperative or due to infection. Clinical correlation advised. I stranding also seen in the pelvis with minimal fluid. 2. Fat stranding in the subcutaneous tissues with minimal air which may be postoperative or inflammatory. 3. Minimal fluid in the uterine cavity. Labs Labs: Laboratory Results - last 24 hr 07/18/24 07/18/24 07/18/24 00:48 05:04 05:08 WBC 9.7 RBC 2.35 L Hgb 6.5 L* Hct 21.6 L MCV 91.9 MCH 27.7 MCHC 30.1 L RDW 14.5 Plt Count 235 MPV 10.3 Sodium 135 L Potassium 4.3 Chloride 105 Carbon Dioxide 23 Anion Gap 7 BUN 8 Creatinine 0.50 L 0.50 L Estim Creat Clear Calc 156 156 Estimated GFR > 60 > 60 Glucose 84 Calcium 8.3 L Vancomycin Trough 5.1 L
[2024-07-18 08:58] LABS: Immature Reticulocyte Fraction 8.7 % (3.0-15.9); Reticulocyte Hemoglobin Conten 20.4 pg (28.2-36.6); Reticulocyte Percent 1.18 % (0.7-4.3); Reticulocytes Absolute 0.03 10^6/uL (0.02-0.10)
--- NOTE | 2024-07-18 08:59 | P.PNOB_ITS ---
[employer]ER LABORATORY TECHNICIAN - A/P Assessment and plan (1) Asthma: Qualifiers: Asthma severity: mild Asthma persistence: unspecified Asthma complic ation type: unspecified Qualified Code(s): J45.909 - Unspecified asthma, uncomplicated Code(s): J45.909 - Unspecified asthma, uncomplicated Status: Acute (2) Sepsis: Qualifiers: Sepsis acute organ dysfunction status: unspecified Sepsis type: sepsis due to unspecified organism Qualified Code(s): A41.9 - Sepsis, unspecified organism Code(s): A41.9 - Sepsis, unspecified organism Status: Acute (3) Intra-abdominal infection after surgical procedure: Code(s): T81.40XA - Infection following a procedure, unspecified, initial encounter Status: Acute Plan intra-abdominal infection after surgical procedure sp PLTC 07/10/2024 continue IV antibiotics and fluids anemia pt has declined transfusion Time Spent With Patient Time: Total time spent is greater than 50% in coordination of care (as documented) at patient's floor/unit and/or counseling patient: Time with patient: less than 15 minutes [employer]ER LABORATORY TECHNICIAN- PN:Re Post-Op Subjective Date/time seen: 07/18/24 08:59 Interval history: Patient is hemodynamically stable, has tachycardia, no fever over the night, temperature 100? decreased yesterday to p.m. labs reviewed, hemoglobin low, 6.5, stable post op c section wound infection Narrative: Patient is a 23 year old who presents for fevers and drainage from her c section incision. She is s/p PLTCS 1 week ago, complicated by placental abruption, PPROM and placenta previa. She has a history of methamphetamine and MJ use. She is currently homeless. She reports fevers for 2 days accompanied by pain and discharge from her c section incision. She denies abnormal vaginal bleeding, nausea or vomiting. On admission, her WBC was 21. She was noted to have cellulitis from her incision up to her umbilicus. She has serosanguinous and purulent discharge from her incision. Abdominal CT scan showed normal postoperative changes vs infection. No obvious abscess formation. Review of Systems Review of Systems: All systems reviewed & are unremarkable except as noted in HPI and below Exam Const: General: tired appearing Orientation/consciousness: patient oriented x3 Eyes: General: appearance normal, both eyes and all related structures Resp: Effort & Inspection: normal respiratory effort and able to speak in complete sentences Cardio: Rate: tachycardic GI: Other: erythema extending from c section incision to umbilicus, serosanguinous discharge, diffuse tenderness to palpatiom Neuro: General: patient oriented x3 Psych: Appearance: grossly normal [employer]ER LABORATORY TECHNICIAN - PN: Obj Data Vital Signs Vital Signs: Vital Signs - 24 hr 07/17/24 14:00 07/17/24 12:00 07/17/24 16:00 Temperature 37.8 C H Pulse Rate 105 H 106 H 105 H Respiratory Rate 20 Blood Pressure 127/76 Pulse Oximetry 99 Oxygen Delivery 07/17/24 19:39 07/17/24 19:55 07/17/24 20:00 Temperature 36.6 C Pulse Rate 110 H 110 H 129 H Respiratory Rate 20 20 Blood Pressure 131/68 Pulse Oximetry 100 100 Oxygen Delivery Room Air 07/18/24 03:28 07/18/24 00:00 07/18/24 04:00 Temperature 36.6 C Pulse Rate 107 H 99 119 H Respiratory Rate 20 Blood Pressure 126/88 Pulse Oximetry 100 Oxygen Delivery Intake/Output Intake/Output: Intake & Output 07/15/24 07/16/24 07/17/24 07/18/24 23:59 23:59 23:59 23:59 Intake Total 2889.5 5675 990 Output Total 0 Balance 2889.5 5675 990 Meds/Results Medications: Active Medications Generic Name Dose Route Start Last Admin Trade Name Freq PRN Reason Stop Dose Admin Acetaminophen 1,000 mg 07/16/24 12:40 07/16/24 19:41 Acetaminophen 500 Mg Tablet PO 1,000 mg Q6H PRN Administration Mild Pain (1-3) or Fever Hydrocodone Bitart/Acetaminophen 1 tab 07/17/24 16:07 07/18/24 07:34 Hydrocodone/Acetaminophen (*Crx) 5-325 Mg Tablet PO 1 tab Q6H PRN Administration Pain Rated 4-6 Albuterol 2 puff 07/17/24 17:35 Albuterol Sulfate (*Sp) Aerosol 1 Puff INHALATION Q6HRT PRN Shortness Of Breath Docusate Sodium 100 mg 07/17/24 21:00 07/18/24 07:37 Docusate Sodium 100 Mg Capsule PO 100 mg Q12HR JIE Administration Piperacillin/Tazobactam/Dextrose 3.375 gm in 50 mls @ 100 mls/hr 07/16/24 18:00 07/18/24 08:01 Zosyn 3.375 Gm/Ns 50 Ml IVPB Infused Q6H JIE Infusion Sodium Chloride 1,000 mls @ 100 mls/hr 07/16/24 12:50 07/17/24 19:55 Normal Saline Iv IV CONT 100 mls/hr .Q10H JIE Administration Vancomycin HCl 2,000 mg in 500 mls @ 250 mls/hr 07/18/24 02:00 07/18/24 05:07 Vancomycin 2,000 Mg/Ns 500 Ml IVPB Infused Q8H JIE Infusion Morphine Sulfate 2 mg 07/16/24 12:40 07/18/24 03:59 Morphine Sulfate (*Crx) 2 Mg/Ml Inj IV PUSH 2 mg Q2H PRN Administration Pain Rated 7-10 Multivitamins Therapeutic 1 tablet 07/18/24 09:00 07/18/24 07:37 Multivitamins Therapeutic Tab (*Bkc) PO 1 tablet QAM JIE Administration Ondansetron HCl 4 mg 07/16/24 12:40 Ondansetron Inj 4 Mg/2 Ml Vial IV PUSH Q4H PRN Nausea Polyethylene Glycol 17 gm 07/17/24 17:35 Polyethylene Glycol 3350 17 Gm Powd.Pack PO QAM PRN Constipation Radiology Results: ITS Impressions Chest X-Ray 07/16/24 11:00 IMPRESSION: 1. No acute cardiopulmonary disease. Abdomen/Pelvis CT 07/16/24 11:46 IMPRESSION: 1. Fat stranding anterior to the uterus and to the right with minimal fluid collections which may be postoperative or due to infection. Clinical correlation advised. I stranding also seen in the pelvis with minimal fluid. 2. Fat stranding in the subcutaneous tissues with minimal air which may be postoperative or inflammatory. 3. Minimal fluid in the uterine cavity. Labs 07/18/24 05:04 07/18/24 05:08 Labs: Laboratory Results - last 24 hr 07/18/24 07/18/24 07/18/24 00:48 05:04 05:08 WBC 9.7 RBC 2.35 L Hgb 6.5 L* Hct 21.6 L MCV 91.9 MCH 27.7 MCHC 30.1 L RDW 14.5 Plt Count 235 MPV 10.3 Sodium 135 L Potassium 4.3 Chloride 105 Carbon Dioxide 23 Anion Gap 7 BUN 8 Creatinine 0.50 L 0.50 L Estim Creat Clear Calc 156 156 Estimated GFR > 60 > 60 Glucose 84 Calcium 8.3 L Vancomycin Trough 5.1 L
[2024-07-18 09:13] LABS: Iron 13 ug/dL (37-170)
[2024-07-18 09:23] LABS: Percent Iron Saturation 5 % (20-50)
[2024-07-18] MEDS: SODIUM CHLORIDE 0.9% IV 1,000 ML 100 ML IV CONT (12:44)
[2024-07-18] MEDS: IRON SUCROSE COMPLEX 200 MG in SODIUM CHLORIDE 0.9% IV 100 ML 220 MG IVPB (13:24)
[2024-07-18] MEDS: FERROUS SULFATE 325 MG TABLET DR PO (17:10)
[2024-07-19] VITALS (10 sets, daily range): BP systolic 117–137; BP diastolic 78–84; PULSE 74–116; RESP 18–19; TEMP 36.5–36.8; O2SAT 96–100
[2024-07-19] MEDS: PIPERACILLN/TAZ 3.375GM/NS50ML 3.375 GM/50 ML BAG IVPB ×4 (00:40→17:08)
[2024-07-19 02:04] LABS: Estimated CRCL calculation 156 ml/min; Estimated Glomerular Filt Rate > 60
[2024-07-19 02:45] LABS: Vancomycin Trough 16.6 ug/mL (10.0-20.0)
[2024-07-19] MEDS: VANCOMYCIN 2,000 MG/NS 500 ML 2,000 MG/500 ML BAG 250 MG IVPB ×3 (03:13→18:04)
[2024-07-19] MEDS: HYDROcodone/acetaminophen (*CRX) 5-325 MG TABLET 1 TAB PO ×3 (03:50→18:03)
[2024-07-19] MEDS: SODIUM CHLORIDE 0.9% IV 1,000 ML 100 ML IV CONT ×3 (05:57→20:19)
--- NOTE | 2024-07-19 07:58 | P.PNIM_ITS ---
Progress Note: A&P Assessment and Plan (1) Asthma: Qualifiers: Asthma complication type: unspecified Asthma persistence: unspecified Asthma severity: mild Qualified Code(s): J45.909 - Unspecified asthma, uncomplicated Code(s): J45.909 - Unspecified asthma, uncomplicated Status: Acute (2) Sepsis: Qualifiers: Sepsis acute organ dysfunction status: unspecified Sepsis type: sepsis due to unspecified organism Qualified Code(s): A41.9 - Sepsis, unspecified organism Code(s): A41.9 - Sepsis, unspecified organism Status: Acute (3) Intra-abdominal infection after surgical procedure: Code(s): T81.40XA - Infection following a procedure, unspecified, initial encounter Status: Acute (4) Abdominal wall cellulitis: Code(s): L03.311 - Cellulitis of abdominal wall Status: Acute Plan (1) Sepsis: Qualifiers: Sepsis acute organ dysfunction status: unspecified Sepsis type: sepsis due to unspecified organism Qualified Code(s): A41.9 - Sepsis, unspecified organism Code(s): A41.9 - Sepsis, unspecified organism Status: Acute Assessment and Plan: - meets SIRS criteria: HR, WBC. No hypotension or hypoxia. - lactic acid: 1.1 - 2500 bolus given, now on 100 mL/hour - suspected source: Abdominal wall cellulitis - started on vancomycin and Zosyn on 07/16 - blood cultures drawn on 07/16, preliminary growth of Gram-positive cocci in clusters. - UA concerning for UTI, culture pending 07/18: pending blood culture patient had fever yesterday afternoon 100, no fever overnight, continue current antibiotics 07/19: blood culture July 16 grew MRSA, susceptible to vancomycin, patient is afebrile, blood pressure stable, repeat blood culture today (2) Intra-abdominal infection after surgical procedure: Code(s): T81.40XA - Infection following a procedure, unspecified, initial encounter Status: Acute Assessment and Plan: -CT abdomen/pelvis 1. Fat stranding anterior to the uterus and to the right with minimal fluid collections which may be postoperative or due to infection. Clinical correlation advised. I stranding also seen in the pelvis with minimal fluid. 2. Fat stranding in the subcutaneous tissues with minimal air which may be postoperative or inflammatory. 3. Minimal fluid in the uterine cavity. on Zosyn and Vanc, blood culture grows MRSA susceptible to vancomycin acute on chronic anemia hemoglobin 10.9 on July 10, recent surgical treatment, suspecting acute blood loss anemia on the base of chronic anemia - Hgb 7.6 -> 6.3>6.5 - has declined transfusion - monitor - start multivitamin iron panel suggests iron deficiency, iron 13, 5 saturation% pending reticulocyte, haptoglobin start Venofer 200 mg IV once, start ferrous sulfate 325 mg b.i.d. p.o. (4) Asthma: Qualifiers: Asthma severity: mild Asthma persistence: unspecified Asthma complication type: unspecified Qualified Code(s): J45.909 - Unspecified asthma, uncomplicated Code(s): J45.909 - Unspecified asthma, uncomplicated Status: Acute Assessment and Plan: patient reports hx of asthma, stable plan: if the repeated blood culture will be positive for MRSA, consider to transfer a patient to a hospital where ID can provide consultation Subjective Date/time seen: 07/19/24 07:58 Interval history: patient is afebrile over the night, blood pressure stable, no O2 saturation on room air . blood culture July 16 grew MRSA patient has a general weakness, denies shortness breath Exam Narrative: GENERAL: ill-appearing in no acute distress. Well-nourished. - EYES: EOMI. Anicteric. pale - HENT: Moist mucous membranes. - LUNGS: Clear to auscultation bilateral ly, no wheezing, rhonchi, or rales. - CARDIOVASCULAR: Regular rate and rhyth m. No murmur. No JVD. - ABDOMEN: Soft, non-tender and non-dist ended. No palpable masses. - EXTREMITIES: No edema. Peripheral puls es 2+. Non-tender. - NEUROLOGIC: No focal neurological defi cits. CN II-XII grossly intact. general weakness - PSYCHIATRIC: Awake, Alert and oriented x 3. Appropriate mood and affect. - SKIN: No rashes or lesions. Warm. - LYMPH: No cervical lymphadenopathy. Objective Data Vital Signs Vital Signs: Vital Signs - 24 hr 07/18/24 08:00 07/18/24 12:00 07/18/24 14:00 Temperature 98.4 F Pulse Rate 113 H 100 98 Respiratory Rate 20 Blood Pressure 118/78 Pulse Oximetry 99 Oxygen Delivery 07/18/24 16:00 07/18/24 20:00 07/18/24 22:00 Temperature 99.2 F Pulse Rate 98 89 Respiratory Rate 18 Blood Pressure 126/81 Pulse Oximetry 100 Oxygen Delivery Room Air 07/18/24 20:00 07/19/24 00:00 07/19/24 04:00 Temperature Pulse Rate 86 97 98 Respiratory Rate Blood Pressure Pulse Oximetry Oxygen Delivery 07/19/24 06:00 Temperature 98.0 F Pulse Rate 94 Respiratory Rate 18 Blood Pressure 133/79 Pulse Oximetry 96 Oxygen Delivery Intake/Output Intake/Output: Intake & Output 07/16/24 07/17/24 07/18/24 07/19/24 23:59 23:59 23:59 23:59 Intake Total 2889.5 5675 3820 50 Output Total 0 Balance 2889.5 5675 3820 50 Meds/Results Medications: Active Medications Generic Name Dose Route Start Last Admin Trade Name Freq PRN Reason Stop Dose Admin Acetaminophen 1,000 mg 07/16/24 12:40 07/16/24 19:41 Acetaminophen 500 Mg Tablet PO 1,000 mg Q6H PRN Administration Mild Pain (1-3) or Fever Hydrocodone Bitart/Acetaminophen 1 tab 07/17/24 16:07 07/19/24 03:50 Hydrocodone/Acetaminophen (*Crx) 5-325 Mg Tablet PO 1 tab Q6H PRN Administration Pain Rated 4-6 Albuterol 2 puff 07/17/24 17:35 Albuterol Sulfate (*Sp) Aerosol 1 Puff INHALATION Q6HRT PRN Shortness Of Breath Docusate Sodium 100 mg 07/17/24 21:00 07/18/24 20:11 Docusate Sodium 100 Mg Capsule PO 100 mg Q12HR JIE Administration Ferrous Sulfate 325 mg 07/18/24 17:00 07/18/24 17:10 Ferrous Sulfate [address] PO 325 mg BID JIE Administration Piperacillin/Tazobactam/Dextrose 3.375 gm in 50 mls @ 100 mls/hr 07/16/24 18:00 07/19/24 05:57 Zosyn 3.375 Gm/Ns 50 Ml IVPB 100 mls/hr Q6H JIE Administration Sodium Chloride 1,000 mls @ 100 mls/hr 07/16/24 12:50 07/19/24 05:57 Normal Saline Iv IV CONT 100 mls/hr .Q10H JIE Administration Vancomycin HCl 2,000 mg in 500 mls @ 250 mls/hr 07/19/24 03:00 07/19/24 03:13 Vancomycin 2,000 Mg/Ns 500 Ml IVPB 250 mls/hr Q8H JIE Administration Morphine Sulfate 2 mg 07/16/24 12:40 07/18/24 22:39 Morphine Sulfate (*Crx) 2 Mg/Ml Inj IV PUSH 2 mg Q2H PRN Administration Pain Rated 7-10 Multivitamins Therapeutic 1 tablet 07/18/24 09:00 07/18/24 07:37 Multivitamins Therapeutic Tab (*Bkc) PO 1 tablet QAM JIE Administration Ondansetron HCl 4 mg 07/16/24 12:40 Ondansetron Inj 4 Mg/2 Ml Vial IV PUSH Q4H PRN Nausea Polyethylene Glycol 17 gm 07/17/24 17:35 Polyethylene Glycol 3350 17 Gm Powd.Pack PO QAM PRN Constipation Radiology Results: ITS Impressions Chest X-Ray 07/16/24 11:00 IMPRESSION: 1. No acute cardiopulmonary disease. Abdomen/Pelvis CT 07/16/24 11:46 IMPRESSION: 1. Fat stranding anterior to the uterus and to the right with minimal fluid collections which may be postoperative or due to infection. Clinical correlation advised. I stranding also seen in the pelvis with minimal fluid. 2. Fat stranding in the subcutaneous tissues with minimal air which may be postoperative or inflammatory. 3. Minimal fluid in the uterine cavity. Labs Labs: Laboratory Results - last 24 hr 07/18/24 07/19/24 05:04 01:49 Absolute Retic 0.03 Percent Retic 1.18 Immature Retic Fraction 8.7 Retic Hgb Content 20.4 L Creatinine 0.50 L Estim Creat Clear Calc 156 Estimated GFR > 60 Iron 13 L TIBC 254 L % Saturation 5 L Ferritin 50.90 Vancomycin Trough 16.6
--- NOTE | 2024-07-19 08:47 | P.PNOB_ITS ---
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 - A/P Assessment and plan (1) Sepsis: Qualifiers: Sepsis acute organ dysfunction status: unspecified Sepsis type: sepsis due to unspecified organism Qualified Code(s): A41.9 - Sepsis, unspecified organism Code(s): A41.9 - Sepsis, unspecified organism Status: Acute (2) Intra-abdominal infection after surgical procedure: Code(s): T81.40XA - Infection following a procedure, unspecified, initial encounter Status: Acute Plan continue management with hospitalist Time Spent With Patient Time: Total time spent is greater than 50% in coordination of care (as documented) at patient's floor/unit and/or counseling patient: Time with patient: less than 15 minutes 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- PN:Re Post-Op Subjective Date/time seen: 07/19/24 08:47 Interval history: patient is afebrile over the night, blood pressure stable, no O2 saturation on room air . blood culture July 16 grew MRSA patient has a general weakness, denies shortness breath on visit today with pt she was mobile, using restroom, walking without assistance Review of Systems Review of Systems: All systems reviewed & are unremarkable except as noted in HPI and below Exam Const: General: cooperative Chest: Chest palpation & inspection: normal inspection of the chest Resp: Effort & Inspection: normal respiratory effort Cardio: Rate: regular rate GI: Other: erythema extending from c section incision to umbilicus, serosanguinous discharge, diffuse tenderness to palpation Skin: General skin exam: normal color Neuro: General: patient oriented x3 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 - PN: Obj Data Vital Signs Vital Signs: Vital Signs - 24 hr 07/18/24 12:00 07/18/24 14:00 07/18/24 16:00 Temperature 36.9 C Pulse Rate 100 98 98 Respiratory Rate 20 Blood Pressure 118/78 Pulse Oximetry 99 Oxygen Delivery 07/18/24 20:00 07/18/24 22:00 07/18/24 20:00 Temperature 37.3 C Pulse Rate 89 86 Respiratory Rate 18 Blood Pressure 126/81 Pulse Oximetry 100 Oxygen Delivery Room Air 07/19/24 00:00 07/19/24 04:00 07/19/24 06:00 Temperature 36.7 C Pulse Rate 97 98 94 Respiratory Rate 18 Blood Pressure 133/79 Pulse Oximetry 96 Oxygen Delivery Intake/Output Intake/Output: Intake & Output 10/03/24 07/17/24 07/18/24 07/19/24 23:59 23:59 23:59 23:59 Intake Total 2889.5 5675 3820 50 Output Total 0 Balance 2889.5 5675 3820 50 Meds/Results Medications: Active Medications Generic Name Dose Route Start Last Admin Trade Name Freq PRN Reason Stop Dose Admin Acetaminophen 1,000 mg 07/16/24 12:40 07/16/24 19:41 Acetaminophen 500 Mg Tablet PO 1,000 mg Q6H PRN Administration Mild Pain (1-3) or Fever Hydrocodone Bitart/Acetaminophen 1 tab 07/17/24 16:07 07/19/24 03:50 Hydrocodone/Acetaminophen (*Crx) 5-325 Mg Tablet PO 1 tab Q6H PRN Administration Pain Rated 4-6 Albuterol 2 puff 07/17/24 17:35 Albuterol Sulfate (*Sp) Aerosol 1 Puff INHALATION Q6HRT PRN Shortness Of Breath Docusate Sodium 100 mg 07/17/24 21:00 07/18/24 20:11 Docusate Sodium 100 Mg Capsule PO 100 mg Q12HR JIE Administration Ferrous Sulfate 325 mg 07/18/24 17:00 07/18/24 17:10 Ferrous Sulfate [address] PO 325 mg BID JIE Administration Piperacillin/Tazobactam/Dextrose 3.375 gm in 50 mls @ 100 mls/hr 07/16/24 18:00 07/19/24 05:57 Zosyn 3.375 Gm/Ns 50 Ml IVPB 100 mls/hr Q6H JIE Administration Sodium Chloride 1,000 mls @ 100 mls/hr 07/16/24 12:50 07/19/24 05:57 Normal Saline Iv IV CONT 100 mls/hr .Q10H JIE Administration Vancomycin HCl 2,000 mg in 500 mls @ 250 mls/hr 07/19/24 03:00 07/19/24 03:13 Vancomycin 2,000 Mg/Ns 500 Ml IVPB 250 mls/hr Q8H JIE Administration Morphine Sulfate 2 mg 07/16/24 12:40 07/18/24 22:39 Morphine Sulfate (*Crx) 2 Mg/Ml Inj IV PUSH 2 mg Q2H PRN Administration Pain Rated 7-10 Multivitamins Therapeutic 1 tablet 07/18/24 09:00 07/18/24 07:37 Multivitamins Therapeutic Tab (*Bkc) PO 1 tablet QAM JIE Administration Ondansetron HCl 4 mg 07/16/24 12:40 Ondansetron Inj 4 Mg/2 Ml Vial IV PUSH Q4H PRN Nausea Polyethylene Glycol 17 gm 07/17/24 17:35 Polyethylene Glycol 3350 17 Gm Powd.Pack PO QAM PRN Constipation Radiology Results: ITS Impressions Chest X-Ray 07/16/24 11:00 IMPRESSION: 1. No acute cardiopulmonary disease. Abdomen/Pelvis CT 07/16/24 11:46 IMPRESSION: 1. Fat stranding anterior to the uterus and to the right with minimal fluid collections which may be postoperative or due to infection. Clinical correlation advised. I stranding also seen in the pelvis with minimal fluid. 2. Fat stranding in the subcutaneous tissues with minimal air which may be postoperative or inflammatory. 3. Minimal fluid in the uterine cavity. Labs 07/18/24 05:04 07/19/24 01:49 Labs: Laboratory Results - last 24 hr 07/18/24 07/19/24 05:04 01:49 Absolute Retic 0.03 Percent Retic 1.18 Immature Retic Fraction 8.7 Retic Hgb Content 20.4 L Creatinine 0.50 L Estim Creat Clear Calc 156 Estimated GFR > 60 Iron 13 L TIBC 254 L % Saturation 5 L Ferritin 50.90 Vancomycin Trough 16.6
[2024-07-19 09:31] LABS: Basophils Percent Auto 0.4 % (0.2-1.2); Eosinophils Absolute Auto 0.2 K/mm3 (0-0.3); Eosinophils Percent Auto 2.4 % (0-4.4); Hematocrit 21.2 % (37.0-47.0); Immature Granulocyte Absolute 0.59 K/mm3 (0.00-0.031); Immature Granulocyte Percent A 6.2 % (0-0.5); Lymphocytes Absolute Auto 1.89 K/mm3 (0.9-3.2); Lymphocytes Percent Auto 19.8 % (18.3-44.2); Mean Corpuscular HGB Conc 29.7 g/dl (32-36); Mean Corpuscular Hemoglobin 27.6 pg (26-34); Mean Platelet Volume 10.5 fl (7.4-10.4); Monocytes Absolute Auto 0.5 K/mm3 (0.1-0.6); Monocytes Percent Auto 5.5 % (2.6-8.5); Neutrophils Absolute Auto 6.3 K/mm3 (1.3-6.7); Neutrophils Percent Auto 65.7 % (45.5-73.1); Nucleated Red Blood Cells Perc 0.2 % (0.0-0.2); Platelet Count Result 221 k/mm3 (150-375); Red Blood Count 2.28 M/mm3 (4.2-5.4); Red Cell Distribution Width 14.2 % (11.5-14.5); White Blood Count 9.6 K/mm3 (4.5-10.0)
[2024-07-19 09:40] LABS: Anion Gap 8 mmol/L (4-12); Blood Urea Nitrogen 7 mg/dL (7-17); Calcium 8.3 mg/dL (8.4-10.2); Carbon Dioxide 22 mmol/L (22-30); Chloride 108 mmol/L (98-107); Estimated CRCL calculation 156 ml/min; Estimated Glomerular Filt Rate > 60; Glucose 77 mg/dL (65-110); Potassium 3.9 mmol/L (3.4-5.0); Sodium 138 mmol/L (137-145)
[2024-07-19] MEDS: DOCUSATE SODIUM 100 MG CAPSULE PO ×2 (09:55→20:19)
[2024-07-19] MEDS: FERROUS SULFATE 325 MG TABLET DR PO ×2 (09:55→16:05)
[2024-07-19] MEDS: MULTIVITAMINS THERAPEUTIC TAB (*BKC) 1 TABLET PO (09:55)
[2024-07-19 09:56] LABS: Hemoglobin 6.3 g/dL (12.0-15.0)
[2024-07-19 09:58] LABS: Burr Cells 1+; Hypochromasia 1+; Platelet Estimate Adequate (Adequate); Schistocytes None Seen
[2024-07-19] MEDS: ONDANSETRON INJ 4 MG/2 ML VIAL IV PUSH (20:19)
[2024-07-19] MEDS: MORPHINE SULFATE (*CRX) 2 MG/ML INJ IV PUSH (20:19)
[2024-07-20] VITALS (17 sets, daily range): BP systolic 107–141; BP diastolic 76–96; PULSE 64–107; RESP 14–20; TEMP 36.2–36.9; O2SAT 97–100
[2024-07-20] MEDS: PIPERACILLN/TAZ 3.375GM/NS50ML 3.375 GM/50 ML BAG IVPB ×3 (00:33→11:35)
[2024-07-20] MEDS: VANCOMYCIN 2,000 MG/NS 500 ML 2,000 MG/500 ML BAG 250 MG IVPB ×3 (03:25→18:06)
[2024-07-20 06:27] LABS: Mean Corpuscular HGB Conc 30.9 g/dl (32-36); Mean Corpuscular Hemoglobin 27.8 pg (26-34); Mean Corpuscular Volume 90.1 fl (80-100); Mean Platelet Volume 9.9 fl (7.4-10.4); Platelet Count Result 274 k/mm3 (150-375); Red Blood Count 2.12 M/mm3 (4.2-5.4)
[2024-07-20] MEDS: HYDROcodone/acetaminophen (*CRX) 5-325 MG TABLET 1 TAB PO ×2 (06:30→21:02)
[2024-07-20 06:50] LABS: Anion Gap 4 mmol/L (4-12); Blood Urea Nitrogen 6 mg/dL (7-17); Calcium 8.2 mg/dL (8.4-10.2); Carbon Dioxide 26 mmol/L (22-30); Chloride 109 mmol/L (98-107); Estimated CRCL calculation 132 ml/min; Estimated Glomerular Filt Rate > 60; Glucose 81 mg/dL (65-110); Potassium 3.8 mmol/L (3.4-5.0); Sodium 139 mmol/L (137-145)
[2024-07-20 08:04] LABS: Hematocrit 19.1 % (37.0-47.0); Hemoglobin 5.9 g/dL (12.0-15.0)
[2024-07-20 08:11] LABS: Band Neutrophils Percent 15 % (0-6); Hypochromasia 1+; Lymphocytes Absolute Manual 0.36 K/mm3 (1.1-4.5); Lymphocytes Percent Manual 3 % (18-44); Neutrophils Absolute Manual 9.84 K/mm3 (1.7-7.2); Neutrophils Percent Manual 67 % (46-73); Platelet Estimate Adequate (Adequate); Schistocytes None Seen; Total Cells Counted 100
--- NOTE | 2024-07-20 08:24 | P.PNOB_ITS ---
OB - PN: Subj Subjective Date/time seen: 07/20/24 08:24 Continues to feel weak and tired. Denies any chest pain or shortness of breath. Denies any foul-smelling vaginal discharge. Minimal vaginal bleeding. Interval history: patient is afebrile over the night, blood pressure stable, no O2 saturation on room air . blood culture July 16 grew MRSA patient has a general weakness, denies shortness breath on visit today with pt she was mobile, using restroom, walking without assistance OB - PN: Obj Data Labs 07/20/24 06:08 07/20/24 06:08 Labs: Laboratory Results - last 24 hr 07/19/24 07/20/24 09:04 06:08 WBC 9.6 12.0 H RBC 2.28 L 2.12 L Hgb 6.3 L* 5.9 L* Hct 21.2 L 19.1 L* MCV 93.0 90.1 MCH 27.6 27.8 MCHC 29.7 L 30.9 L RDW 14.2 14.0 Plt Count 221 274 MPV 10.5 H 9.9 Immature Gran % (Auto) 6.2 H Not Reportable Neut % (Auto) 65.7 Not Reportable Lymph % (Auto) 19.8 Not Reportable [place] % (Auto) 5.5 Not Reportable Eos % (Auto) 2.4 Not Reportable Baso % (Auto) 0.4 Not Reportable Lymph # (Auto) 1.89 Not Reportable [place] # (Auto) 0.5 Not Reportable Eos # (Auto) 0.2 Not Reportable Baso # (Auto) 0.0 Not Reportable Abs Immat Gran (auto) 0.59 H Not Reportable Absolute Neuts (auto) 6.3 Not Reportable Absolute Nucleated RBC 0.020 H Not Reportable Total Counted 100 Neutrophils % (Manual) 67 Band Neutrophils % 15 H Lymphocytes % (Manual) 3 L Nucleated RBC % 0.2 Not Reportable Abs Neuts (Manual) 9.84 H Abs Lymphs (Manual) 0.36 L Platelet Estimate Adequate Adequate Hypochromasia 1+ 1+ Betty Cells 1+ Schistocytes None seen None seen Sodium 138 139 Potassium 3.9 3.8 Chloride 108 H 109 H Carbon Dioxide 22 26 Anion Gap 8 4 BUN 7 6 L Creatinine 0.50 L 0.60 L Estim Creat Clear Calc 156 132 Estimated GFR > 60 > 60 Glucose 77 81 Calcium 8.3 L 8.2 L OB - PN A/P Assessment and Plan (1) Sepsis: Qualifiers: Sepsis acute organ dysfunction status: unspecified Sepsis type: sepsis due to unspecified organism Qualified Code(s): A41.9 - Sepsis, unspecified organism Code(s): A41.9 - Sepsis, unspecified organism Status: Acute (2) Abdominal wall cellulitis: Code(s): L03.311 - Cellulitis of abdominal wall Status: Acute (3) delivery delivered: Code(s): O82 - Encounter for delivery without indication Status: Acute Plan patient is stable, IV antibiotics, afebrile more than 36 hours. Modest impr ovement of cellulitis. Worsening anemia, slight bump in her white count. Time Spent With Patient Time: Total time spent is greater than 50% in coordination of care (as documented) at patient's floor/unit and/or counseling patient: Exam Const: General: healthy appearing, comfortable and no acute distress Resp: Auscultation: clear to auscultation bilaterally, no rales, no rhonchi and no wheezes Cardio: Rate: regular rate Heart sounds: no click, no murmurs and no rubs GI: Inspection: non-distended Auscultation: normal bowel sounds Extrem: General: normal to inspection, no pedal edema and no calf tenderness
[2024-07-20] MEDS: MULTIVITAMINS THERAPEUTIC TAB (*BKC) 1 TABLET PO (08:40)
[2024-07-20] MEDS: DOCUSATE SODIUM 100 MG CAPSULE PO ×2 (08:40→21:02)
[2024-07-20] MEDS: FERROUS SULFATE 325 MG TABLET DR PO ×2 (08:40→16:37)
[2024-07-20] MEDS: SODIUM CHLORIDE 0.9% IV 1,000 ML 100 ML IV CONT (08:50)
--- NOTE | 2024-07-20 09:04 | PC.NURSE ---
Patient refusing to be stuck at this time for a second IV for blood. Patient is refusing blood at this time despite being educated about low hemoglobin and low hematocrit. Dr Hill aware.
--- NOTE | 2024-07-20 11:22 | PCCCNOTE ---
Received phone call from [facility] wood cut engraver Michelle Hector [phone] who requested information on results for cord - baby's cord tested positive for amphetamines, methamphetamines and THC. Results faxed to Michelle at [phone].
--- NOTE | 2024-07-20 12:08 | PM.IMPN ---
Progress Note: A&P Assessment and Plan (1) Sepsis: Qualifiers: Sepsis acute organ dysfunction status: unspecified Sepsis type: sepsis due to unspecified organism Qualified Code(s): A41.9 - Sepsis, unspecified organism Code(s): A41.9 - Sepsis, unspecified organism Status: Acute (2) Intra-abdominal infection after surgical procedure: Code(s): T81.40XA - Infection following a procedure, unspecified, initial encounter Status: Acute (3) Abdominal wall cellulitis: Code(s): L03.311 - Cellulitis of abdominal wall Status: Acute (4) Anemia: Qualifiers: Anemia type: unspecified type Qualified Code(s): D64.9 - Anemia, unspecified Code(s): D64.9 - Anemia, unspecified Status: Acute Plan 23 y/o F presented to the hospital with a low lower abdominal pain and chills with PMH of recent and substance abuse. The patient delivered on 07/10/24 via at [facility] at 33 weeks. was complicated by lack of care, placenta previa, placental abruption, PPROM, substance abuse, and lack of housing. She was discharged from the hospital on 07/13 after 3 days of care inpatient. She returned on 07/16/2024 for re-evaluation after she noticed yellow discharge from her incision site. She endorsed associated lower abdominal pain, diaphoresis, and chills. Initial ED workup showed anemia with a hemoglobin of 7.6, previously 7.4 on 07/11/2024. The patient was offered a blood transfusion post , however she declined stating she did not want someone else's blood inside her. CT of the abdomen/pelvis was concerning for abdominal wall cellulitis without abscess formation. UA suspicious for UTI and urine drug screen positive for opiates, amphetamine, and cannabis. Blood cultures and a urine culture were obtained during initial assessment. Blood culture from admission is growing MRSA. Repeat blood culture from 07/19/2024 is negative till date. 1. Sepsis with abdominal wall cellulitis/surgical site infection: Surgical site care as per OB team Continue with vancomycin Follow-up repeat blood cultures Will discontinue cefepime Monitor leukocytosis 2. Acute on chronic anemia: Hemoglobin today is 5.9 Patient continues to decline for blood transfusion I discussed with her about seriousness of situation She seems to have a poor understanding of her disease process She finally agreed for transfusion as of now, high chance that she might refuse it again Received IV iron yesterday, I told her that is not sufficient to improve her hemoglobin instantly 3. DVT prophylaxis: SCDs 4. Code status: Full 5. Disposition: As per primary team Time Spent With Patient Time with patient: 25 - 35 minutes Subjective Date/time seen: 07/20/24 12:08 Interval history: Continues to feel weak, tired. Review of Systems Review of Systems: All systems reviewed & are unremarkable except as noted in HPI and below Exam Narrative: GENERAL: ill-appearing in no acute distress. Well-nourished. - EYES: EOMI. Anicteric. pale - HENT: Moist mucous membranes. - LUNGS: Clear to auscultation bilaterally, no wheezing, rhonchi, or rales. - CARDIOVASCULAR: Regular rate and rhythm. No murmur. No JVD. - ABDOMEN: Soft, non-tender and non-distended. No palpable masses. Dressing over lower abdomen - EXTREMITIES: No edema. Peripheral pulses 2+. Non-tender. - NEUROLOGIC: No focal neurological deficits. CN II-XII grossly intact. general weakness - PSYCHIATRIC: Awake, Alert and oriented x 3. Appropriate mood and affect. - SKIN: No rashes or lesions. Warm. - LYMPH: No cervical lymphadenopathy. Objective Data Vital Signs Vital Signs: Vital Signs - 24 hr 07/19/24 14:00 07/19/24 16:03 07/19/24 19:59 Temperature 98.3 F Pulse Rate 99 74 116 H Respiratory Rate 18 19 Blood Pressure 117/78 Pulse Oximetry 100 99 Oxygen Delivery Room Air 07/19/24 20:00 07/19/24 22:00 07/20/24 00:00 Temperature 97.7 F Pulse Rate 100 95 95 Respiratory Rate 18 Blood Pressure 137/84 Pulse Oximetry 98 Oxygen Delivery 07/20/24 04:00 07/20/24 06:00 07/20/24 08:40 Temperature 98.4 F Pulse Rate 88 95 Respiratory Rate 18 18 Blood Pressure 129/92 H Pulse Oximetry 97 97 Oxygen Delivery Room Air 07/20/24 08:00 Temperature Pulse Rate 87 Respiratory Rate Blood Pressure Pulse Oximetry Oxygen Delivery Intake/Output Intake/Output: Intake & Output 07/17/24 07/18/24 07/19/24/07/24 23:59 23:59 23:59 23:59 Intake Total 5675 3820 3640 2296 Balance 5675 3820 3640 2296 Meds/Results Medications: Active Medications Generic Name Dose Route Start Last Admin Trade Name Freq PRN Reason Stop Dose Admin Acetaminophen 1,000 mg 07/16/24 12:40 07/16/24 19:41 Acetaminophen 500 Mg Tablet PO 1,000 mg Q6H PRN Administration Mild Pain (1-3) or Fever Hydrocodone Bitart/Acetaminophen 1 tab 07/17/24 16:07 07/20/24 06:30 Hydrocodone/Acetaminophen (*Crx) 5-325 Mg Tablet PO 1 tab Q6H PRN Administration Pain Rated 4-6 Albuterol 2 puff 07/17/24 17:35 Albuterol Sulfate (*Sp) Aerosol 1 Puff INHALATION Q6HRT PRN Shortness Of Breath Docusate Sodium 100 mg 07/17/24 21:00 07/20/24 08:40 Docusate Sodium 100 Mg Capsule PO 100 mg Q12HR JIE Administration Ferrous Sulfate 325 mg 07/18/24 17:00 07/20/24 08:40 Ferrous Sulfate [address] PO 325 mg BID JIE Administration Piperacillin/Tazobactam/Dextrose 3.375 gm in 50 mls @ 100 mls/hr 07/16/24 18:00 07/20/24 11:35 Zosyn 3.375 Gm/Ns 50 Ml IVPB 100 mls/hr Q6H JIE Administration Vancomycin HCl 2,000 mg in 500 mls @ 250 mls/hr 07/19/24 03:00 07/20/24 10:53 Vancomycin 2,000 Mg/Ns 500 Ml IVPB 250 mls/hr Q8H JIE Administration Sodium Chloride 250 mls @ 30 mls/hr 07/20/24 08:21 Normal Saline Iv IV CONT 07/20/24 16:40 .Q8H20M STA Morphine Sulfate 2 mg 07/16/24 12:40 07/19/24 20:19 Morphine Sulfate (*Crx) 2 Mg/Ml Inj IV PUSH 2 mg Q2H PRN Administration Pain Rated 7-10 Multivitamins Therapeutic 1 tablet 07/18/24 09:00 07/20/24 08:40 Multivitamins Therapeutic Tab (*Bkc) PO 1 tablet QAM JIE Administration Ondansetron HCl 4 mg 07/16/24 12:40 07/19/24 20:19 Ondansetron Inj 4 Mg/2 Ml Vial IV PUSH 4 mg Q4H PRN Administration Nausea Polyethylene Glycol 17 gm 07/17/24 17:35 Polyethylene Glycol 3350 17 Gm Powd.Pack PO QAM PRN Constipation Radiology Results: ITS Impressions Chest X-Ray 07/16/24 11:00 IMPRESSION: 1. No acute cardiopulmonary disease. Abdomen/Pelvis CT 07/16/24 11:46 IMPRESSION: 1. Fat stranding anterior to the uterus and to the right with minimal fluid collections which may be postoperative or due to infection. Clinical correlation advised. I stranding also seen in the pelvis with minimal fluid. 2. Fat stranding in the subcutaneous tissues with minimal air which may be postoperative or inflammatory. 3. Minimal fluid in the uterine cavity. Labs Labs: Laboratory Results - last 24 hr 07/20/24 06:08 WBC 12.0 H RBC 2.12 L Hgb 5.9 L* Hct 19.1 L* MCV 90.1 MCH 27.8 MCHC 30.9 L RDW 14.0 Plt Count 274 MPV 9.9 Immature Gran % (Auto) Not Reportable Neut % (Auto) Not Reportable Lymph % (Auto) Not Reportable Real % (Auto) Not Reportable Eos % (Auto) Not Reportable Baso % (Auto) Not Reportable Lymph # (Auto) Not Reportable Real # (Auto) Not Reportable Eos # (Auto) Not Reportable Baso # (Auto) Not Reportable Abs Immat Gran (auto) Not Reportable Absolute Neuts (auto) Not Reportable Absolute Nucleated RBC Not Reportable Total Counted 100 Neutrophils % (Manual) 67 Band Neutrophils % 15 H Lymphocytes % (Manual) 3 L Nucleated RBC % Not Reportable Abs Neuts (Manual) 9.84 H Abs Lymphs (Manual) 0.36 L Platelet Estimate Adequate Hypochromasia 1+ Schistocytes None seen Sodium 139 Potassium 3.8 Chloride 109 H Carbon Dioxide 26 Anion Gap 4 BUN 6 L Creatinine 0.60 L Estim Creat Clear Calc 132 Estimated GFR > 60 Glucose 81 Calcium 8.2 L Quality VTE Prophylaxis VTE prophylaxis: mechanical ordered
[2024-07-20] MEDS: SODIUM CHLORIDE 0.9% IV 250 ML 30 ML IV CONT ×2 (14:28→23:34)
[2024-07-21] VITALS (11 sets, daily range): BP systolic 130–141; BP diastolic 82–92; PULSE 61–103; RESP 17–20; TEMP 36.1–36.9; O2SAT 100
[2024-07-21 02:04] LABS: Haptoglobin 532 mg/dL (43-212)
[2024-07-21] MEDS: VANCOMYCIN 2,000 MG/NS 500 ML 2,000 MG/500 ML BAG 250 MG IVPB (02:26)
[2024-07-21 06:13] LABS: Hematocrit 23.8 % (37.0-47.0); Hemoglobin 7.4 g/dL (12.0-15.0); Mean Corpuscular HGB Conc 31.1 g/dl (32-36); Mean Corpuscular Hemoglobin 27.6 pg (26-34); Mean Corpuscular Volume 88.8 fl (80-100); Mean Platelet Volume 10.1 fl (7.4-10.4); Platelet Count Result 334 k/mm3 (150-375); Red Blood Count 2.68 M/mm3 (4.2-5.4); White Blood Count 12.7 K/mm3 (4.5-10.0)
[2024-07-21 06:23] LABS: Anion Gap 5 mmol/L (4-12); Blood Urea Nitrogen 5 mg/dL (7-17); Calcium 8.4 mg/dL (8.4-10.2); Carbon Dioxide 27 mmol/L (22-30); Chloride 108 mmol/L (98-107); Estimated CRCL calculation 156 ml/min; Estimated Glomerular Filt Rate > 60; Glucose 81 mg/dL (65-110); Potassium 3.9 mmol/L (3.4-5.0); Sodium 140 mmol/L (137-145)
[2024-07-21 06:25] LABS: Estimated CRCL calculation 132 ml/min; Estimated Glomerular Filt Rate > 60
[2024-07-21 07:04] LABS: Anisocytosis 1+; Band Neutrophils Percent 7 % (0-6); Eosinophils Absolute Manual 0.25 K/mm3 (0.02-0.50); Eosinophils Percent Manual 2 % (0-4); Hypochromasia 1+; Lymphocytes Absolute Manual 1.39 K/mm3 (1.1-4.5); Lymphocytes Percent Manual 11 % (18-44); Monocytes Absolute Manual 0.38 K/mm3 (0.1-0.90); Monocytes Percent Manual 3 % (3-9); Neutrophils Absolute Manual 10.54 K/mm3 (1.7-7.2); Neutrophils Percent Manual 76 % (46-73); Platelet Estimate Adequate (Adequate); Promyelocytes Percent 1 %; Schistocytes None Seen; Total Cells Counted 100
[2024-07-21] MEDS: MULTIVITAMINS THERAPEUTIC TAB (*BKC) 1 TABLET PO (09:00)
[2024-07-21] MEDS: FERROUS SULFATE 325 MG TABLET DR PO ×2 (09:00→17:53)
[2024-07-21] MEDS: DOCUSATE SODIUM 100 MG CAPSULE PO ×2 (09:00→21:25)
--- NOTE | 2024-07-21 09:18 | P.PNOB_ITS ---
CORE BLOWER - A/P Assessment and plan (1) Sepsis: Qualifiers: Sepsis acute organ dysfunction status: unspecified Sepsis type: sepsis due to unspecified organism Qualified Code(s): A41.9 - Sepsis, unspecified organism Code(s): A41.9 - Sepsis, unspecified organism Status: Acute (2) Abdominal wall cellulitis: Code(s): L03.311 - Cellulitis of abdominal wall Status: Acute (3) delivery delivered: Code(s): O82 - Encounter for delivery without indication Status: Acute Plan Improved appearance of the subcutaneous cellulitis around the incision site. Afebrile, stable white count, CT was repeated. Fluid collection around the uterus appears smaller. It was initially small on the 1st CT scan. There is no subcutaneous abscess or fluid collection. To continue to observe. Medicine is watching sepsis and blood cultures And antibiotic Time Spent With Patient Time: Total time spent is greater than 50% in coordination of care (as documented) at patient's floor/unit and/or counseling patient: Time with patient: 15 - 25 minutes CORE BLOWER- PN:Subj Post-Op Subjective Date/time seen: 07/21/24 09:18 Patient is up and moving. Appears to have better color. Patient has more energy than yesterday. Received 2 units of blood. Passing flatus. Denies any nausea, vomiting, fever, chills. Interval history: Continues to feel weak, tired. Exam Const: General: cooperative, healthy appearing, comfortable and no acute distress Orientation/consciousness: oriented to person, oriented to place and oriented to time HENMT: Head: normal to inspection Ears: external ears normal Face/Nose/Sinus: Normal external nose present and normal facial exam Face and sinus: normal facial exam Eyes: General: appearance normal, both eyes and all related structures Neck: Neck: normal visual inspection, trachea midline and supple Resp: Auscultation: clear to auscultation bilaterally, no crackles, no rales, no rhonchi and no wheezes Cardio: Rate: regular rate Rhythm: regular rhythm Heart sounds: no click, no murmurs and no rubs GI: GI Palp: No abdominal tenderness, No Soft to palpation, No Tenderness to palpation present (GI) and No Palpable mass present Auscultation: normal bowel sounds Other: Induration around the lower abdominal incision appears improved. There is some superficial flocculent areas with pus. Overall the erythema and induration are down. Skin: General skin exam: normal color and no rashes or lesions noted Neuro: General: oriented to person, oriented to place and oriented to time Extrem: General: normal to inspection, no joint enlargement, no clubbing, cyanosis or edema, no pedal edema and no calf tenderness Psych: Appearance: grossly normal Mental Status: mental status grossly normal Speech and movement: Normal speech and movement present CORE BLOWER - PN: Obj Data Vital Signs Vital Signs: Vital Signs - 24 hr 07/20/24 12:00 07/20/24 15:05 07/20/24 14:00 Temperature 97.3 F L 97.3 F L Pulse Rate 87 100 100 Respiratory Rate 18 14 Blood Pressure 107/76 107/76 Pulse Oximetry 99 99 Oxygen Delivery 07/20/24 15:20 07/20/24 16:20 07/20/24 16:03 Temperature 97.1 F L 97.6 F Pulse Rate 84 82 74 Respiratory Rate 18 18 Blood Pressure 133/93 H 141/95 H Pulse Oximetry 99 100 Oxygen Delivery 07/20/24 17:20 07/20/24 17:30 07/20/24 21:32 Temperature 97.8 F 97.8 F 98.3 F Pulse Rate 91 91 64 Respiratory Rate 18 18 18 Blood Pressure 141/95 H 141/95 H 139/96 H Pulse Oximetry 100 100 100 Oxygen Delivery 07/20/24 20:00 07/20/24 23:25 07/20/24 23:25 Temperature 97.8 F 97.9 F Pulse Rate 107 H 71 71 Respiratory Rate 18 20 Blood Pressure 130/84 130/84 Pulse Oximetry 100 100 Oxygen Delivery 07/20/24 23:40 07/20/24 20:00 07/21/24 00:00 Temperature 98 F Pulse Rate 68 68 65 Respiratory Rate 20 20 Blood Pressure 124/78 Pulse Oximetry 100 100 Oxygen Delivery Room Air 07/21/24 00:40 07/21/24 01:49 07/21/24 01:47 Temperature 97.7 F 98.2 F 98.2 F Pulse Rate 70 66 66 Respiratory Rate 20 20 20 Blood Pressure 137/86 130/86 130/86 Pulse Oximetry 100 100 100 Oxygen Delivery 07/21/24 04:00 07/21/24 05:13 Temperature 98.5 F Pulse Rate 103 H 81 Respiratory Rate 18 Blood Pressure 131/91 H Pulse Oximetry 100 Oxygen Delivery Intake/Output Intake/Output: Intake & Output 07/18/24 07/19/24 07/20/24 07/21/24 23:59 23:59 23:59 23:59 Intake Total 3820 3640 4486 1300 Balance 3820 3640 4486 1300 Meds/Results Medications: Active Medications Generic Name Dose Route Start Last Admin Trade Name Freq PRN Reason Stop Dose Admin Acetaminophen 1,000 mg 07/16/24 12:40 07/16/24 19:41 Acetaminophen 500 Mg Tablet PO 1,000 mg Q6H PRN Administration Mild Pain (1-3) or Fever Hydrocodone Bitart/Acetaminophen 1 tab 07/17/24 16:07 07/20/24 21:02 Hydrocodone/Acetaminophen (*Crx) 5-325 Mg Tablet PO 1 tab Q6H PRN Administration Pain Rated 4-6 Albuterol 2 puff 07/17/24 17:35 Albuterol Sulfate (*Sp) Aerosol 1 Puff INHALATION Q6HRT PRN Shortness Of Breath Docusate Sodium 100 mg 07/17/24 21:00 07/21/24 09:00 Docusate Sodium 100 Mg Capsule PO 100 mg Q12HR JIE Administration Ferrous Sulfate 325 mg 07/18/24 17:00 07/21/24 09:00 Ferrous Sulfate [address] PO 325 mg BID JIE Administration Vancomycin HCl 2,000 mg in 500 mls @ 250 mls/hr 07/19/24 03:00 07/21/24 02:26 Vancomycin 2,000 Mg/Ns 500 Ml IVPB 250 mls/hr Q8H JIE Administration Iron Sucrose 400 mg/ Iron 275 mls @ 78.571 mls/hr 07/21/24 10:00 Sucrose 100 mg/ Sodium IVPB 07/21/24 13:29 Chloride ONCE ONE Morphine Sulfate 2 mg 07/16/24 12:40 07/19/24 20:19 Morphine Sulfate (*Crx) 2 Mg/Ml Inj IV PUSH 2 mg Q2H PRN Administration Pain Rated 7-10 Multivitamins Therapeutic 1 tablet 07/18/24 09:00 07/21/24 09:00 Multivitamins Therapeutic Tab (*Bkc) PO 1 tablet QAM JIE Administration Ondansetron HCl 4 mg 07/16/24 12:40 07/19/24 20:19 Ondansetron Inj 4 Mg/2 Ml Vial IV PUSH 4 mg Q4H PRN Administration Nausea Polyethylene Glycol 17 gm 07/17/24 17:35 Polyethylene Glycol 3350 17 Gm Powd.Pack PO QAM PRN Constipation Radiology Results: ITS Impressions Chest X-Ray 07/16/24 11:00 IMPRESSION: 1. No acute cardiopulmonary disease. Abdomen/Pelvis CT 07/20/24 22:02 IMPRESSION: 1. Hepatomegaly. 2. Possible filling defect in the portal and splenic vein and improper visua lization of the inferior mesenteric vein with the possibility of thrombus. Ultrasound evaluation advised. 3. The collection seen anterior to the uterus are decreased. Fat stranding seen in the sites of the pelvis around the uterus is slightly decreased. 4. Thickened wall of the urinary bladder with irregularity which may indicate cystitis. 5. Fat stranding in the anterior abdominal wall and fundus size which has inc reased which may indicate cellulitis. Follow-up advised. Labs 07/21/24 05:53 07/21/24 05:53 Labs: Laboratory Results - last 24 hr 07/18/24 07/20/24 07/21/24 05:04 13:18 05:53 WBC 12.7 H RBC 2.68 L Hgb 7.4 L Hct 23.8 L MCV 88.8 MCH 27.6 MCHC 31.1 L RDW 15.0 H Plt Count 334 MPV 10.1 Immature Gran % (Auto) Not Reportable Neut % (Auto) Not Reportable Lymph % (Auto) Not Reportable [place] % (Auto) Not Reportable Eos % (Auto) Not Reportable Baso % (Auto) Not Reportable Lymph # (Auto) Not Reportable [place] # (Auto) Not Reportable Eos # (Auto) Not Reportable Baso # (Auto) Not Reportable Abs Immat Gran (auto) Not Reportable Absolute Neuts (auto) Not Reportable Absolute Nucleated RBC Not Reportable Total Counted 100 Neutrophils % (Manual) 76 H Band Neutrophils % 7 H Lymphocytes % (Manual) 11 L Monocytes % (Manual) 3 Eosinophils % (Manual) 2 Promyelocytes % (Man) 1 Nucleated RBC % Not Reportable Abs Neuts (Manual) 10.54 H Abs Lymphs (Manual) 1.39 Abs Monocytes (Manual) 0.38 Absolute Eos (Manual) 0.25 Platelet Estimate Adequate Hypochromasia 1+ Anisocytosis 1+ Schistocytes None seen Haptoglobin 532 H Sodium 140 Potassium 3.9 Chloride 108 H Carbon Dioxide 27 Anion Gap 5 BUN 5 L Creatinine 0.60 L Estim Creat Clear Calc Estimated GFR Glucose Calcium Blood Type O Positive Antibody Screen Negative Crossmatch See Detail 07/21/24 07/21/24 07/21/24 05:53 05:53 05:53 WBC RBC Hgb Hct MCV MCH MCHC RDW Plt Count MPV Immature Gran % (Auto) Neut % (Auto) Lymph % (Auto) [place] % (Auto) Eos % (Auto) Baso % (Auto) Lymph # (Auto) [place] # (Auto) Eos # (Auto) Baso # (Auto) Abs Immat Gran (auto) Absolute Neuts (auto) Absolute Nucleated RBC Total Counted Neutrophils % (Manual) Band Neutrophils % Lymphocytes % (Manual) Monocytes % (Manual) Eosinophils % (Manual) Promyelocytes % (Man) Nucleated RBC % Abs Neuts (Manual) Abs Lymphs (Manual) Abs Monocytes (Manual) Absolute Eos (Manual) Platelet Estimate Hypochromasia Anisocytosis Schistocytes Haptoglobin Sodium Potassium Chloride Carbon Dioxide Anion Gap BUN Creatinine 0.50 L Estim Creat Clear Calc 132 156 Estimated GFR > 60 > 60 Glucose 81 Calcium 8.4 Blood Type Antibody Screen Crossmatch
[2024-07-21] MEDS: IRON SUCROSE COMPLEX 400 MG, IRON SUCROSE COMPLEX 100 MG in SODIUM CHLORIDE 0.9% IV 250 ML 78.57 MG IVPB (09:32)
--- NOTE | 2024-07-21 10:48 | P.PNIM_ITS ---
Progress Note: A&P Assessment and Plan (1) Sepsis: Qualifiers: Sepsis acute organ dysfunction status: unspecified Sepsis type: sepsis due to unspecified organism Qualified Code(s): A41.9 - Sepsis, unspecified o rganism Code(s): A41.9 - Sepsis, unspecified organism Status: Acute (2) Bacteremia due to methicillin resistant Staphylococcus aureus: Code(s): R78.81 - Bacteremia; B95.62 - Methicillin resistant Staphylococcus aureus infection as the cause of diseases classified elsewhere Status: Acute (3) Intra-abdominal infection after surgical procedure: Code(s): T81.40XA - Infection following a procedure, unspecified, initial encounter Status: Acute (4) Abdominal wall cellulitis: Code(s): L03.311 - Cellulitis of abdominal wall Status: Acute (5) Iron deficiency anemia: Code(s): D50.9 - Iron deficiency anemia, unspecified Status: Acute Plan 23 y/o F presented to the hospital with a low lower abdominal pain and chills with PMH of recent and substance abuse. The patient delivered on 07/10/24 via at [facility] at 33 weeks. was complicated by lack of care, placenta previa, placental abruption, PPROM, substance abuse, and lack of housing. She was discharged from the hospital on 07/13 after 3 days of care inpatient. She returned on 07/16/2024 for re-evaluation after she noticed yellow discharge from her C- section incision site. She endorsed associated lower abdominal pain, diaphoresis, and chills. Initial ED workup showed anemia with a hemoglobin of 7.6, previously 7.4 on 07/11/2024. The patient was offered a blood transfusion post , however she declined stating she did not want someone else's blood inside her. CT of the abdomen/pelvis was concerning for abdominal wall cellulitis without abscess formation. UA suspicious for UTI and urine drug screen positive for opiates, amphetamine, and cannabis. Blood cultures and a urine culture were obtained during initial assessment. Blood culture from admission is growing MRSA. Repeat blood culture from 07/19/2024 is negative till date. 1. Sepsis with abdominal wall cellulitis/surgical site infection: Surgical site care as per OB team Continue with vancomycin Follow-up repeat blood cultures Will discontinue cefepime Monitor leukocytosis MRSA bacteremia, repeat cultures negative growth to date 48 hours Will need 2 weeks of IV vancomycin 2. Acute on chronic anemia: Hemoglobin today is 7.4 s/p transfusion IV iron ordered 3. DVT prophylaxis: SCDs, pharm contraindicated due to anemia requiring transfusion 4. Code status: Full 5. Disposition: 2 weeks IV abx as no available oral option Time Spent With Patient Time with patient: Greater than 35 minutes Subjective Date/time seen: 07/21/24 10:48 Interval history: Patient awake alert oriented, requesting discharge this as possible. White blood cell count remains elevated. Reviewed prior labs saw that patient had significantly low iron and 5% saturation. Ordered iron infusion. Hemoglobin better post transfusion today, currently 7.4. Review of blood cultures showed initial cultures positive for MRSA in 2 of 2 sets repeat cultures no growth to date 48 hours at this time. Patient on IV vancomycin. Vancomycin trough elevated today so pharmacy is adjusting dosing. Patient will require 2 weeks of IV antibiotics given MRSA that is resistant to Bactrim and patient is unable to take linezolid due to history of methamphetamine abuse and severe contraindications with linezolid and amphetamines. Review of prior imaging CT scan obtained yesterday mentioned concern for filling defect in the portal and splenic vein as well as insufficient visualization of inferior mesenteric vein, recommended ultrasound at that time but not ordered so this was added today. Review of Systems Review of Systems: All systems reviewed & are unremarkable except as noted in HPI and below Exam Narrative: GENERAL: ill-appearing in no acute distress. Well-nourished. - EYES: EOMI. pale conjunctiva - HENT: Moist mucous membranes. - LUNGS: Clear to auscultation bilateral ly, no wheezing, rhonchi, or rales. - CARDIOVASCULAR: Regular rate and rhyth m. No murmur. No JVD. - ABDOMEN: Soft, non-tender and non-dist ended. No palpable masses. Dressing over lower abdomen - EXTREMITIES: No edema. Peripheral puls es 2+. Non-tender. - NEUROLOGIC: No focal neurological defi cits. CN II-XII grossly intact. general weakness - PSYCHIATRIC: Awake, Alert and oriented x 3. Appropriate mood and affect. - SKIN: No rashes or lesions. Warm. Pale and yellowish - LYMPH: No cervical lymphadenopathy. Objective Data Vital Signs Vital Signs: Vital Signs - 24 hr 07/20/24 12:00 07/20/24 15:05 07/20/24 14:00 Temperature 36.3 C L 36.3 C L Pulse Rate 87 100 100 Respiratory Rate 18 14 Blood Pressure 107/76 107/76 Pulse Oximetry 99 99 Oxygen Delivery 07/20/24 15:20 07/20/24 16:20 07/20/24 16:03 Temperature 36.2 C L 36.4 C Pulse Rate 84 82 74 Respiratory Rate 18 18 Blood Pressure 133/93 H 141/95 H Pulse Oximetry 99 100 Oxygen Delivery 07/20/24 17:20 07/20/24 17:30 07/20/24 21:32 Temperature 36.6 C 36.6 C 36.8 C Pulse Rate 91 91 64 Respiratory Rate 18 18 18 Blood Pressure 141/95 H 141/95 H 139/96 H Pulse Oximetry 100 100 100 Oxygen Delivery 07/20/24 20:00 07/20/24 23:25 07/20/24 23:25 Temperature 36.6 C 36.6 C Pulse Rate 107 H 71 71 Respiratory Rate 18 20 Blood Pressure 130/84 130/84 Pulse Oximetry 100 100 Oxygen Delivery 07/20/24 23:40 07/20/24 20:00 07/21/24 00:00 Temperature 36.6 C Pulse Rate 68 68 65 Respiratory Rate 20 20 Blood Pressure 124/78 Pulse Oximetry 100 100 Oxygen Delivery Room Air 07/21/24 00:40 07/21/24 01:49 07/21/24 01:47 Temperature 36.5 C 36.8 C 36.8 C Pulse Rate 70 66 66 Respiratory Rate 20 20 20 Blood Pressure 137/86 130/86 130/86 Pulse Oximetry 100 100 100 Oxygen Delivery 07/21/24 04:00 07/21/24 05:13 07/21/24 09:00 Temperature 36.9 C Pulse Rate 103 H 81 Respiratory Rate 18 18 Blood Pressure 131/91 H Pulse Oximetry 100 100 Oxygen Delivery Room Air 07/21/24 08:04 Temperature Pulse Rate 61 Respiratory Rate Blood Pressure Pulse Oximetry Oxygen Delivery Intake/Output Intake/Output: Intake & Output 07/18/24 07/19/24 07/20/24 07/21/24 23:59 23:59 23:59 23:59 Intake Total 3820 3640 4486 1300 Balance 3820 3640 4486 1300 Meds/Results Medications: Active Medications Generic Name Dose Route Start Last Admin Trade Name Freq PRN Reason Stop Dose Admin Acetaminophen 1,000 mg 07/16/24 12:40 07/16/24 19:41 Acetaminophen 500 Mg Tablet PO 1,000 mg Q6H PRN Administration Mild Pain (1-3) or Fever Hydrocodone Bitart/Acetaminophen 1 tab 07/17/24 16:07 07/20/24 21:02 Hydrocodone/Acetaminophen (*Crx) 5-325 Mg Tablet PO 1 tab Q6H PRN Administration Pain Rated 4-6 Albuterol 2 puff 07/17/24 17:35 Albuterol Sulfate (*Sp) Aerosol 1 Puff INHALATION Q6HRT PRN Shortness Of Breath Docusate Sodium 100 mg 07/17/24 21:00 07/21/24 09:00 Docusate Sodium 100 Mg Capsule PO 100 mg Q12HR JIE Administration Ferrous Sulfate 325 mg 07/18/24 17:00 07/21/24 09:00 Ferrous Sulfate [address] PO 325 mg BID JIE Administration Vancomycin HCl 2,000 mg in 500 mls @ 250 mls/hr 07/19/24 03:00 07/21/24 02:26 Vancomycin 2,000 Mg/Ns 500 Ml IVPB 250 mls/hr Q8H JIE Administration Iron Sucrose 400 mg/ Iron 275 mls @ 78.571 mls/hr 07/21/24 10:00 07/21/24 09:32 Sucrose 100 mg/ Sodium IVPB 07/21/24 13:29 78.57 mls/hr Chloride ONCE ONE Administration Morphine Sulfate 2 mg 07/16/24 12:40 07/19/24 20:19 Morphine Sulfate (*Crx) 2 Mg/Ml Inj IV PUSH 2 mg Q2H PRN Administration Pain Rated 7-10 Multivitamins Therapeutic 1 tablet 07/18/24 09:00 07/21/24 09:00 Multivitamins Therapeutic Tab (*Bkc) PO 1 tablet QAM JIE Administration Ondansetron HCl 4 mg 07/16/24 12:40 07/19/24 20:19 Ondansetron Inj 4 Mg/2 Ml Vial IV PUSH 4 mg Q4H PRN Administration Nausea Polyethylene Glycol 17 gm 07/17/24 17:35 Polyethylene Glycol 3350 17 Gm Powd.Pack PO QAM PRN Constipation Radiology Results: ITS Impressions Chest X-Ray 07/16/24 11:00 IMPRESSION: 1. No acute cardiopulmonary disease. Abdomen/Pelvis CT 07/20/24 22:02 IMPRESSION: 1. Hepatomegaly. 2. Possible filling defect in the portal and splenic vein and improper visualization of the inferior mesenteric vein with the possibility of thrombus. Ultrasound evaluation advised. 3. The collection seen anterior to the uterus are decreased. Fat stranding seen in the sites of the pelvis around the uterus is slightly decreased. 4. Thickened wall of the urinary bladder with irregularity which may indicate cystitis. 5. Fat stranding in the anterior abdominal wall and fundus size which has increased which may indicate cellulitis. Follow-up advised. Labs Labs: Laboratory Results - last 24 hr 07/18/24 07/20/24 07/21/24 05:04 13:18 05:53 WBC 12.7 H RBC 2.68 L Hgb 7.4 L Hct 23.8 L MCV 88.8 MCH 27.6 MCHC 31.1 L RDW 15.0 H Plt Count 334 MPV 10.1 Immature Gran % (Auto) Not Reportable Neut % (Auto) Not Reportable Lymph % (Auto) Not Reportable [place] % (Auto) Not Reportable Eos % (Auto) Not Reportable Baso % (Auto) Not Reportable Lymph # (Auto) Not Reportable [place] # (Auto) Not Reportable Eos # (Auto) Not Reportable Baso # (Auto) Not Reportable Abs Immat Gran (auto) Not Reportable Absolute Neuts (auto) Not Reportable Absolute Nucleated RBC Not Reportable Total Counted 100 Neutrophils % (Manual) 76 H Band Neutrophils % 7 H Lymphocytes % (Manual) 11 L Monocytes % (Manual) 3 Eosinophils % (Manual) 2 Promyelocytes % (Man) 1 Nucleated RBC % Not Reportable Abs Neuts (Manual) 10.54 H Abs Lymphs (Manual) 1.39 Abs Monocytes (Manual) 0.38 Absolute Eos (Manual) 0.25 Platelet Estimate Adequate Hypochromasia 1+ Anisocytosis 1+ Schistocytes None seen Haptoglobin 532 H Sodium 140 Potassium 3.9 Chloride 108 H Carbon Dioxide 27 Anion Gap 5 BUN 5 L Creatinine 0.60 L Estim Creat Clear Calc Estimated GFR Glucose Calcium Blood Type O Positive Antibody Screen Negative Crossmatch See Detail 07/21/24 07/21/24 07/21/24 05:53 05:53 05:53 WBC RBC Hgb Hct MCV MCH MCHC RDW Plt Count MPV Immature Gran % (Auto) Neut % (Auto) Lymph % (Auto) [place] % (Auto) Eos % (Auto) Baso % (Auto) Lymph # (Auto) [place] # (Auto) Eos # (Auto) Baso # (Auto) Abs Immat Gran (auto) Absolute Neuts (auto) Absolute Nucleated RBC Total Counted Neutrophils % (Manual) Band Neutrophils % Lymphocytes % (Manual) Monocytes % (Manual) Eosinophils % (Manual) Promyelocytes % (Man) Nucleated RBC % Abs Neuts (Manual) Abs Lymphs (Manual) Abs Monocytes (Manual) Absolute Eos (Manual) Platelet Estimate Hypochromasia Anisocytosis Schistocytes Haptoglobin Sodium Potassium Chloride Carbon Dioxide Anion Gap BUN Creatinine 0.50 L Estim Creat Clear Calc 132 156 Estimated GFR > 60 > 60 Glucose 81 Calcium 8.4 Blood Type Antibody Screen Crossmatch Pulse Oximetry SpO2 results: 100% on room air Attestation: I personally reviewed and interpreted this pulse oximetry as follows: Interpretation: No need for supplemental oxygenation at this Quality VTE Prophylaxis VTE prophylaxis: mechanical ordered Hospitalist MIPS Advance Care Plan I have confirmed that the patient's Advanced Care Plan is present, code status is documented, or surrogate decision maker is listed in patient medical record.: Yes Medication Reconciliation I have utilized all available resources to obtain, update and review the patients current medications (includes all prescriptions, OTC, herbals, cannabis, and nutritional supplements).: Yes
[2024-07-21 11:10] LABS: Vancomycin Trough 26.9 ug/mL (10.0-20.0)
[2024-07-21 15:22] LABS: Alanine Aminotransferase 14 U/L (6-35); Albumin Level 2.7 g/dL (3.5-5.1); Alkaline Phosphatase 123 U/L (38-126); Aspartate Amino Transferase 20 U/L (14-36); Bilirubin,Total 0.2 mg/dL (0.2-1.3)
[2024-07-21] MEDS: VANCOMYCIN 1,750 MG/NS 500 ML 1,750 MG/500 ML BAG 250 MG IVPB (17:54)
[2024-07-21] MEDS: HYDROcodone/acetaminophen (*CRX) 5-325 MG TABLET 1 TAB PO (21:25)
--- NOTE | 2024-07-22 | ECHO_ITS ---
Patient Info Name: Frances Pandey Age: 23 years : 2000 Gender: Female Ht: 63 in Wt: 193 lbs BSA: 2.01 m2 HR: 73 bpm BP: 137 / 87 mmHg Heart Rhythm: Sinus Rhythm Technical Quality: Fair Exam Date: 07/22/2024 3:05 PM Exam Location: Echo Lab Patient Status: Inpatient Admit Date: 07/16/2024 Staff Ordering Physician: Yamilex Macias APRN Show Girl: Krystal Erazo RDCS Attending Provider: Yamilex Macias APRN Referring Physician: Gilberto CORTES; Exam Type: CA echo doppler color flow Study Info Indications I33.9 - Acute and subacute endocarditis, unspecified - mrsa - bacteremia Complete two-dimensional, color flow and Doppler transthoracic echocardiogram is performed. Summary 1. Complete two-dimensional, color flow and Doppler transthoracic echocardiogram is performed. 2. Essentially unremarkable 2D/Doppler echocardiogram. 3. No infectious vegetations or findings supportive of the diagnosis of endocarditis. Left Ventricle Left ventricular chamber dimension is normal. Left ventricular systolic function is normal, estimated at 65-70%. The left ventricular diastolic function is normal. Right Ventricle Right ventricular chamber dimension is normal. Left Atria Left atrial chamber dimension is normal. Right Atria Right atrial chamber dimension is normal. Aortic Valve The aortic valve is normal. Pulmonic Valve The pulmonic valve is normal. Mitral Valve The mitral valve has normal leaflets. There is trace mitral valve regurgitation. Tricuspid Valve The tricuspid valve leaflets are normal. There is trace tricuspid valve regurgitation. Pericardium/Pleural The pericardium appears normal. Aorta The aortic root size at the sinus of Valsalva is normal. Left Ventricular Outflow Tract Name Value Normal LVOT 2D LVOT Diameter 2.0 cm LVOT Doppler LVOT Peak Gradient 7 mmHg LVOT Mean Gradient 3 mmHg LVOT VTI 23 cm LVOT VTI/AV VTI Ratio 0.8 LVOT Stroke Volume 72 ml LVOT CO 6.0 l/min LVOT CI 3.0 l/min/m2 Pulmonic Valve Name Value Normal PV Doppler PV Peak Gradient 3 mmHg Mitral Valve Name Value Normal MV Doppler MV Decel [place] 696 cm/s2 MV PHT 49 ms MV Area (PHT) 4.5 cm2 4.0-5.0 MV Diastolic Function MV E Peak Velocity 118 cm/s MV A Peak Velocity 54 cm/s MV E/A 2.2 MV Decel Time 169 ms Tricuspid Valve Name Value Normal TV Regurgitation Doppler TR Peak Velocity 289 cm/s TR Peak Gradient 28 mmHg Aorta Name Value Normal Ascending Aorta Ao Root Diameter (MM) 2.1 cm Ao Root Diam Index (MM) 1.0 cm/m2 Aortic Valve Name Value Normal AV Doppler AV Peak Velocity 142 cm/s AV Peak Gradient 8 mmHg AV Mean Gradient 3 mmHg AV VTI 28 cm AV Area (Cont Eq VTI) 2.5 cm2 >=3.0 AV Area (Cont Eq Alfred) 2.9 cm2 AV Regurgitation 2D LVOT Area 3.1 cm2 Ventricles Name Value Normal LV Dimensions 2D/MM IVS Diastolic Thickness (2D) 1.0 cm 0.6-1.0 IVS Diastole Thickness (MM) 1.0 cm 0.6-0.9 LVID Diastole (2D) 4.5 cm 3.8-5.2 LVID Diastole (MM) 5.0 cm 3.8-5.2 LVIW Diastolic Thickness (2D) 1.0 cm 0.6-0.9 LVIW Diastolic Thickness (MM) 0.8 cm 0.6-0.9 LVID Systole (2D) 2.9 cm 2.2-3.5 LVID Systole (MM) 3.2 cm 2.2-3.5 LVOT Diameter 2.0 cm LV Mass (2D Cubed) 160.93 g 67.00-162.00 LV Mass Index (2D Cubed) 80 g/m2 43-95 Relative Wall Thickness (2D) 0.45 LV Mass (MM Cubed) 156.62 g 67.00-162.00 LV Mass Index (MM Cubed) 78 g/m2 43-95 Relative Wall Thickness (MM) 0.32 LV Fractional Shortening/Ejection Fraction 2D/MM LV Fractional Shortening (2D) 35 % 27-45 LV Fractional Shortening (MM) 36 % 27-45 LV EF (MM Teicholz) 66 % 54-74 LV EF (2D Teicholz) 65 % 54-74 LV Diastolic Volume (4C MOD) 100 ml LV EF (4C MOD) 71 % LV Diastolic Volume (2C MOD) 102 ml LV EF (2C MOD) 74 % LV Diastolic Volume (BP MOD) 102 ml 46-106 LV Diastolic Volume Index (BP MOD) 51 ml/m2 29-61 LV Systolic Volume (BP MOD) 28 ml 14-42 LV Systolic Volume Index (BP MOD) 14 ml/m2 8-24 LV EF (BP MOD) 73 % 54-74 LV Diastolic Length (4C) 8.6 cm LV Systolic Length (4C) 6.5 cm LV Stroke Volume (4C MOD) 71 ml Atria Name Value Normal LA Dimensions LA Dimension (MM) 4.3 cm 2.7-3.8 LA Volume (4C A-L) 83 ml LA Volume (BP A-L) 88 ml RA Dimensions RA Area (4C) 13.7 cm2 <=18.0 Report Signatures
[2024-07-22 04:28] VITALS: BP 137/87; PULSE 73; RESP 18; TEMP 37; O2SAT 100
[2024-07-22] MEDS: VANCOMYCIN 1,750 MG/NS 500 ML 1,750 MG/500 ML BAG 250 MG IVPB ×2 (05:12→18:07)
[2024-07-22 06:22] LABS: Hematocrit 28.1 % (37.0-47.0); Hemoglobin 8.8 g/dL (12.0-15.0); Mean Corpuscular HGB Conc 31.3 g/dl (32-36); Mean Corpuscular Hemoglobin 28.4 pg (26-34); Mean Corpuscular Volume 90.6 fl (80-100); Mean Platelet Volume 9.9 fl (7.4-10.4); Platelet Count Result 427 k/mm3 (150-375); Red Cell Distribution Width 15.4 % (11.5-14.5); White Blood Count 12.7 K/mm3 (4.5-10.0)
[2024-07-22 06:32] LABS: Alanine Aminotransferase 15 U/L (6-35); Albumin Level 3.3 g/dL (3.5-5.1); Alkaline Phosphatase 134 U/L (38-126); Anion Gap 8 mmol/L (4-12); Aspartate Amino Transferase 30 U/L (14-36); Bilirubin,Total 0.3 mg/dL (0.2-1.3); Blood Urea Nitrogen 6 mg/dL (7-17); Carbon Dioxide 31 mmol/L (22-30); Chloride 102 mmol/L (98-107); Estimated CRCL calculation 115 ml/min; Estimated Glomerular Filt Rate > 60; Glucose 84 mg/dL (65-110); Magnesium 2.3 mg/dL (1.6-2.3); Potassium 3.7 mmol/L (3.4-5.0); Sodium 141 mmol/L (137-145)
[2024-07-22 07:18] LABS: Anisocytosis 1+; Atypical Lymphocytes Present; Band Neutrophils Percent 10 % (0-6); Lymphocytes Absolute Manual 2.79 K/mm3 (1.1-4.5); Lymphocytes Percent Manual 22 % (18-44); Monocytes Percent Manual 4 % (3-9); Neutrophils Absolute Manual 8.89 K/mm3 (1.7-7.2); Neutrophils Percent Manual 60 % (46-73); Platelet Estimate Adequate (Adequate); Schistocytes None Seen; Total Cells Counted 100
[2024-07-22] MEDS: DOCUSATE SODIUM 100 MG CAPSULE PO (08:49)
[2024-07-22] MEDS: MULTIVITAMINS THERAPEUTIC TAB (*BKC) 1 TABLET PO (08:49)
[2024-07-22] MEDS: FERROUS SULFATE 325 MG TABLET DR PO ×2 (08:49→18:07)
--- NOTE | 2024-07-22 09:20 | P.PNOB_ITS ---
OB - PN: Subj Subjective Date/time seen: 07/22/24 09:20 this patient is a 23-year-old multiparous female who is 12 days postop from delivery for previa and hemorrhage. She became severely anemic after the surgery. She developed an abdominal wall cellulitis short time after that. She has been hospitalized now for 5 days. She is being treated with IV antibiotics for the cellulitis. She received 2 units of blood for her severe anemia. Hemoglobin is 8.8 today. Her white count remains around 12. The abdominal wall cellulitis of the subcutaneous fat appears better today. There is less induration. There is less erythema. There is a flocculent area of abscess on the right side that is about 2 cm. The left side has a draining abscess 2. These are superficial subcuticular abscesses. The abscess on the right side incision likely rupture and drain today. To continue IV antibiotics and observation until satisfactorily recovered. Interval history: Patient awake alert oriented, requesting discharge this as possible. White blood cell count remains elevated. Reviewed prior labs saw that patient had significantly low iron and 5% saturation. Ordered iron infusion. Hemoglobin better post transfusion today, currently 7.4. Review of blood cultures showed initial cultures positive for MRSA in 2 of 2 sets repeat cultures no growth to date 48 hours at this time. Patient on IV vancomycin. Vancomycin trough elevated today so pharmacy is adjusting dosing. Patient will require 2 weeks of IV antibiotics given MRSA that is resistant to Bactrim and patient is unable to take linezolid due to history of methamphetamine abuse and severe contraindications with linezolid and amphetamines. Review of prior imaging CT scan obtained yesterday mentioned concern for filling defect in the portal and splenic vein as well as insufficient visualization of inferior mesenteric vein, recommended ultrasound at that time but not ordered so this was added today. OB - PN: Obj Data Labs 07/22/24 05:59 07/22/24 05:59 Labs: Laboratory Results - last 24 hr 07/21/24 07/21/24 07/22/24 05:46 10:14 05:59 WBC 12.7 H RBC 3.10 L Hgb 8.8 L Hct 28.1 L MCV 90.6 MCH 28.4 MCHC 31.3 L RDW 15.4 H Plt Count 427 H MPV 9.9 Immature Gran % (Auto) Not Reportable Neut % (Auto) Not Reportable Lymph % (Auto) Not Reportable [place] % (Auto) Not Reportable Eos % (Auto) Not Reportable Baso % (Auto) Not Reportable Lymph # (Auto) Not Reportable [place] # (Auto) Not Reportable Eos # (Auto) Not Reportable Baso # (Auto) Not Reportable Abs Immat Gran (auto) Not Reportable Absolute Neuts (auto) Not Reportable Absolute Nucleated RBC Not Reportable Total Counted 100 Neutrophils % (Manual) 60 Band Neutrophils % 10 H Lymphocytes % (Manual) 22 Monocytes % (Manual) 4 Nucleated RBC % Not Reportable Abs Neuts (Manual) 8.89 H Abs Lymphs (Manual) 2.79 Abs Monocytes (Manual) 0.50 Atypical Lymphocytes Present Platelet Estimate Adequate Anisocytosis 1+ Schistocytes None seen Sodium 141 Potassium 3.7 Chloride 102 Carbon Dioxide 31 H Anion Gap 8 BUN 6 L Creatinine 0.70 Estim Creat Clear Calc 115 Estimated GFR > 60 Glucose 84 Calcium 9.0 Magnesium 2.3 Total Bilirubin 0.2 0.3 Direct Bilirubin 0.0 AST 20 30 ALT 14 15 Alkaline Phosphatase 123 134 H Total Protein 6.0 L 7.0 Albumin 2.7 L 3.3 L Vancomycin Trough 26.9 H Imaging Radiologist's impression: Impressions Abdomen Ultrasound 07/21/24 15:35 IMPRESSION: Hepatosplenomegaly. Trace perihepatic fluid. No filling defect within the portal vein or the splenic vein, as detailed above. OB - PN A/P Assessment and Plan (1) Abdominal wall cellulitis: Code(s): L03.311 - Cellulitis of abdominal wall Status: Acute Assessment and Plan: 07/22/24 09:20 this patient is a 23-year-old multiparous female who is 12 days postop from delivery for previa and hemorrhage. She became severely anemic after the surgery. She developed an abdominal wall cellulitis short time after that. She has been hospitalized now for 5 days. She is being treated with IV antibiotics for the cellulitis. She received 2 units of blood for her severe anemia. Hemoglobin is 8.8 today. Her white count remains around 12. The abdominal wall cellulitis of the subcutaneous fat appears better today. There is less induration. There is less erythema. There is a flocculent area of abscess on the right side that is about 2 cm. The left side has a draining abscess 2. These are superficial subcuticular abscesses. The abscess on the right side incision likely rupture and drain today. To continue IV antibiotics and observation until satisfactorily recovered. Time Spent With Patient Time: Total time spent is greater than 50% in coordination of care (as documented) at patient's floor/unit and/or counseling patient:
[2024-07-22 14:00] VITALS: PULSE 72; RESP 10; TEMP 36.1; O2SAT 100
--- NOTE | 2024-07-22 14:04 | P.PNIM_ITS ---
Progress Note: A&P Assessment and Plan (1) Sepsis: Qualifiers: Sepsis acute organ dysfunction status: unspecified Sepsis type: sepsis due to unspecified organism Qualified Code(s): A41.9 - Sepsis, unspecified o rganism Code(s): A41.9 - Sepsis, unspecified organism Status: Acute Assessment and Plan: * Secondary to cellulitis and site * Resolving WBC still 12.7 * Follow-up cultures with no growth initial cultures MRSA * Echocardiogram pending (2) Bacteremia due to methicillin resistant Staphylococcus aureus: Code(s): R78.81 - Bacteremia; B95.62 - Methicillin resistant Staphylococcus aureus infection as the cause of diseases classified elsewhere Status: Acute Assessment and Plan: * Unknown if due to cellulitis or possible IV drug use * 48 hours post second set of blood cultures negative * afebrile/antipyretics for fever * Echocardiogram pending * Plan will be for IV vancomycin x3 more doses then patient will be discharged and scheduled for outpatient IV dose of Dalbavancin to cover instead of 2 weeks IV ABX however if patient has endocarditis need to change dosing. This will be the best option for patient since known IV drug user in unable to place midline or PICC line as currently being homeless and refuses to go to need skilled facility. (3) Intra-abdominal infection after surgical procedure: Code(s): T81.40XA - Infection following a procedure, unspecified, initial encounter Status: Acute Assessment and Plan: See Above (4) Abdominal wall cellulitis: Code(s): L03.311 - Cellulitis of abdominal wall Status: Acute Assessment and Plan: * Vancomycin IV * See bacteremia for antibiotic therapy and plan * Acetaminophen for pain * OBGYN admitting (5) Iron deficiency anemia: Code(s): D50.9 - Iron deficiency anemia, unspecified Status: Acute Assessment and Plan: * Hgb 5.8 POA * transfused 2 units PRBC's * 8.8 post transfusion * Hemodynamically stable * Monitor H&H * Transfuse if Hgb <7.0 Plan Code status: Full code per patient DVT prophylaxis: SCD's Stress ulcer prophylaxis: NA PT/OT notes: NA Disposition: Patient continues admission to medical unit to MRSA bacteremia and abdominal cellulitis postop plan for IV vancomycin today and tomorrow will then be discharged and follow up outpatient following day for IV da lbavancin x1 dose pending echocardiogram S2 with her patient will need a 2nd dose. This discharge plan was to to patient's IV drug use unable to discharge IV line as well as current living situation being homeless and refusing to go to a skilled facility for IV antibiotics. Time Spent With Patient Time with patient: 15 - 25 minutes Subjective Date/time seen: 07/22/24 14:04 Interval history: Patient is a 23-year-old female admitted for abdominal cellulitis post and bacteremia with MRSA. 07/22/2024: Assumed Care Patient denied any chest pain, shortness a breath, nausea, vomiting, fever chills denied any further abdominal pain. Patient did state she may sign out AMA if her boyfriend cannot stay the night, informed and educated patient on the risks of leaving without proper treatment. Review of Systems Review of Systems: All systems reviewed & are unremarkable except as noted in HPI and below Exam Narrative: Physical Exam: * GENERAL: Alert and oriented x 3. No acute distress. * HEENT: Moist mucous membranes. * LUNGS: Clear to auscultation bilaterally. No accessory muscle use. * CARDIOVASCULAR: Regular rate and rhythm. No murmur. No JVD. S1-S2 * ABDOMEN: Soft, non tenderness and non-distended. Transverse cellulitis abdominal wall post no drainage noted erythema improving * EXTREMITIES: No edema. Non-tender * SKIN: No rashes or lesions. Skin warm, dry. * NEUROLOGIC: No focal neurological deficits. * PSYCHIATRIC: Appropriate mood and affect. Poor judgment Objective Data Vital Signs Vital Signs: Vital Signs - 24 hr 07/21/24 20:59 07/21/24 20:00 07/22/24 04:28 Temperature 97.0 F L 98.6 F Pulse Rate 61 61 73 Respiratory Rate 20 20 18 Blood Pressure 141/92 H 137/87 Pulse Oximetry 100 100 100 Oxygen Delivery Room Air 07/22/24 08:45 Temperature Pulse Rate Respiratory Rate Blood Pressure Pulse Oximetry Oxygen Delivery Room Air Intake/Output Intake/Output: Intake & Output 07/19/24 07/20/24 07/21/24 07/22/24 23:59 23:59 23:59 23:59 Intake Total 3640 4486 3275 750 Balance 3640 4486 3275 750 Meds/Results Medications: Active Medications Generic Name Dose Route Start Last Admin Trade Name Freq PRN Reason Stop Dose Admin Acetaminophen 1,000 mg 07/16/24 12:40 07/16/24 19:41 Acetaminophen 500 Mg Tablet PO 1,000 mg Q6H PRN Administration Mild Pain (1-3) or Fever Hydrocodone Bitart/Acetaminophen 1 tab 07/17/24 16:07 07/21/24 21:25 Hydrocodone/Acetaminophen (*Crx) 5-325 Mg Tablet PO 1 tab Q6H PRN Administration Pain Rated 4-6 Albuterol 2 puff 07/17/24 17:35 Albuterol Sulfate (*Sp) Aerosol 1 Puff INHALATION Q6HRT PRN Shortness Of Breath Docusate Sodium 100 mg 07/17/24 21:00 07/22/24 08:49 Docusate Sodium 100 Mg Capsule PO 100 mg Q12HR JIE Administration Ferrous Sulfate 325 mg 07/18/24 17:00 07/22/24 08:49 Ferrous Sulfate [address] PO 325 mg BID JIE Administration Vancomycin HCl 1,750 mg in 500 mls @ 250 mls/hr 07/21/24 18:00 07/22/24 05:12 Vancomycin 1,750 Mg/Ns 500 Ml IVPB 250 mls/hr Q12H JIE Administration Morphine Sulfate 2 mg 07/16/24 12:40 07/19/24 20:19 Morphine Sulfate (*Crx) 2 Mg/Ml Inj IV PUSH 2 mg Q2H PRN Administration Pain Rated 7-10 Multivitamins Therapeutic 1 tablet 07/18/24 09:00 07/22/24 08:49 Multivitamins Therapeutic Tab (*Bkc) PO 1 tablet QAM JIE Administration Ondansetron HCl 4 mg 07/16/24 12:40 07/19/24 20:19 Ondansetron Inj 4 Mg/2 Ml Vial IV PUSH 4 mg Q4H PRN Administration Nausea Perflutren Lipid Microsphere 0 ml 07/22/24 07:41 Perflutren Lipid Microspheres 1.5 Ml Vial Diluted To 10 Ml Total Volume IV PUSH 07/25/24 07:41 ONCE PRN adequate visualization Protocol Polyethylene Glycol 17 gm 07/17/24 17:35 Polyethylene Glycol 3350 17 Gm Powd.Pack PO QAM PRN Constipation Radiology Results: ITS Impressions Chest X-Ray 07/16/24 11:00 IMPRESSION: 1. No acute cardiopulmonary disease. Abdomen/Pelvis CT 07/20/24 22:02 IMPRESSION: 1. Hepatomegaly. 2. Possible filling defect in the portal and splenic vein and improper visualization of the inferior mesenteric vein with the possibility of thrombus. Ultrasound evaluation advised. 3. The collection seen anterior to the uterus are decreased. Fat stranding seen in the sites of the pelvis around the uterus is slightly decreased. 4. Thickened wall of the urinary bladder with irregularity which may indicate cystitis. 5. Fat stranding in the anterior abdominal wall and fundus size which has increased which may indicate cellulitis. Follow-up advised. Abdomen Ultrasound 07/21/24 15:35 IMPRESSION: Hepatosplenomegaly. Trace perihepatic fluid. No filling defect within the portal vein or the splenic vein, as detailed above. Labs Labs: Laboratory Results - last 24 hr 07/21/24 07/22/24 05:46 05:59 WBC 12.7 H RBC 3.10 L Hgb 8.8 L Hct 28.1 L MCV 90.6 MCH 28.4 MCHC 31.3 L RDW 15.4 H Plt Count 427 H MPV 9.9 Immature Gran % (Auto) Not Reportable Neut % (Auto) Not Reportable Lymph % (Auto) Not Reportable [place] % (Auto) Not Reportable Eos % (Auto) Not Reportable Baso % (Auto) Not Reportable Lymph # (Auto) Not Reportable [place] # (Auto) Not Reportable Eos # (Auto) Not Reportable Baso # (Auto) Not Reportable Abs Immat Gran (auto) Not Reportable Absolute Neuts (auto) Not Reportable Absolute Nucleated RBC Not Reportable Total Counted 100 Neutrophils % (Manual) 60 Band Neutrophils % 10 H Lymphocytes % (Manual) 22 Monocytes % (Manual) 4 Nucleated RBC % Not Reportable Abs Neuts (Manual) 8.89 H Abs Lymphs (Manual) 2.79 Abs Monocytes (Manual) 0.50 Atypical Lymphocytes Present Platelet Estimate Adequate Anisocytosis 1+ Schistocytes None seen Sodium 141 Potassium 3.7 Chloride 102 Carbon Dioxide 31 H Anion Gap 8 BUN 6 L Creatinine 0.70 Estim Creat Clear Calc 115 Estimated GFR > 60 Glucose 84 Calcium 9.0 Magnesium 2.3 Total Bilirubin 0.2 0.3 Direct Bilirubin 0.0 AST 20 30 ALT 14 15 Alkaline Phosphatase 123 134 H Total Protein 6.0 L 7.0 Albumin 2.7 L 3.3 L Quality VTE Prophylaxis VTE prophylaxis: mechanical ordered -Patient's previous records reviewed on admission -ER notes reviewed in detail on admission -discussed all findings and current treatment plan with patient/Family/POA -Consultations reviewed for recommendations -Patient's disposition for safe discharge discussed with bilingual case manager Dictation performed by [employer] direct speech recognition software, therefore hobbing press operator variants and typographical errors may occur. Hospitalist MIPS Advance Care Plan I have confirmed that the patient's Advanced Care Plan is present, code status is documented, or surrogate decision maker is listed in patient medical record.: Yes Medication Reconciliation I have utilized all available resources to obtain, update and review the patients current medications (includes all prescriptions, OTC, herbals, cannabis, and nutritional supplements).: Yes The patient is not eligible for med reconciliation; the patient is in a emergent medical situation where delaying treatment would jeopardize the patients health.: No
--- NOTE | 2024-07-22 18:12 | PC.NURSE ---
Patient is very suspicious and unhappy about being in a room with video monitoring, states she had her chest out during her echo earlier and that makes her uncomfortable, and she is uncomfortable sleeping in there because knowing she's being watched makes her feel like an experiment. Patient is requesting for her boyfriend to stay the night. RN explained that visiting hours end at 20:00 and as long as she is medically stable there is no indication for him to stay per hospital policy. She requested to speak to greenhouse assistant to see if they can make an exception. Hector Wells informed patient he will not be able to stay and can come back when visiting hours start tomorrow. Patient stated she will leave AMA if he is not allowed to stay with her. An in-depth conversation was had regarding the importance of getting all of her IV antibiotics and staying one more night until she is medically able to discharge tomorrow. Both patient and boyfriend agree that they will leave AMA after the 18:00 dose of Vancomycin is infused. Battery Builder came to floor at 1800 and agreed to let the visitor stay the night and sleep in one of the two waiting rooms [place] [facility] [place]. Patient and boyfriend are in agreeance, patient states she would like to leave the room and stay with him in the waiting room. This was obviously advised against and patient was informed she could ambulate the halls but is not able to leave the unit. Next shift informed of potential elopement risk.
[2024-07-22 21:53] VITALS: BP 154/88; PULSE 77; RESP 13; TEMP 36.8; O2SAT 99
[2024-07-22] MEDS: HYDROcodone/acetaminophen (*CRX) 5-325 MG TABLET 1 TAB PO (23:58)
[2024-07-23 05:28] LABS: Hematocrit 27.9 % (37.0-47.0); Hemoglobin 8.8 g/dL (12.0-15.0); Mean Corpuscular HGB Conc 31.5 g/dl (32-36); Mean Corpuscular Hemoglobin 28.5 pg (26-34); Mean Corpuscular Volume 90.3 fl (80-100); Mean Platelet Volume 9.8 fl (7.4-10.4); Platelet Count Result 476 k/mm3 (150-375); Red Blood Count 3.09 M/mm3 (4.2-5.4); Red Cell Distribution Width 15.9 % (11.5-14.5); White Blood Count 10.8 K/mm3 (4.5-10.0)
[2024-07-23 05:44] LABS: Alanine Aminotransferase 14 U/L (6-35); Albumin Level 3.3 g/dL (3.5-5.1); Alkaline Phosphatase 116 U/L (38-126); Anion Gap 6 mmol/L (4-12); Aspartate Amino Transferase 28 U/L (14-36); Bilirubin,Total 0.3 mg/dL (0.2-1.3); Blood Urea Nitrogen 8 mg/dL (7-17); Carbon Dioxide 29 mmol/L (22-30); Chloride 103 mmol/L (98-107); Estimated CRCL calculation 102 ml/min; Estimated Glomerular Filt Rate > 60; Glucose 85 mg/dL (65-110); Magnesium 2.2 mg/dL (1.6-2.3); Potassium 3.9 mmol/L (3.4-5.0); Sodium 138 mmol/L (137-145)
[2024-07-23 05:49] LABS: Vancomycin Trough 14.7 ug/mL (10.0-20.0)
[2024-07-23 05:56] VITALS: BP 145/93; PULSE 69; RESP 14; TEMP 36.8; O2SAT 100
[2024-07-23 06:23] LABS: Band Neutrophils Percent 3 % (0-6); Lymphocytes Absolute Manual 1.62 K/mm3 (1.1-4.5); Lymphocytes Percent Manual 15 % (18-44); Monocytes Absolute Manual 0.21 K/mm3 (0.1-0.90); Monocytes Percent Manual 2 % (3-9); Neutrophils Absolute Manual 8.96 K/mm3 (1.7-7.2); Neutrophils Percent Manual 80 % (46-73)
[2024-07-23 06:24] LABS: Anisocytosis 1+; Platelet Estimate Increased (Adequate); Schistocytes None Seen
[2024-07-23] MEDS: VANCOMYCIN 1,750 MG/NS 500 ML 1,750 MG/500 ML BAG 250 MG IVPB (06:31)
--- NOTE | 2024-07-23 08:24 | P.PNOB_ITS ---
OB - PN: Subj Subjective Date/time seen: 07/23/24 08:24 diminished induration of the abdominal wall cellulitis, too small ruptured subcuticular cyst. Draining. To have wound care discussed care of her wound after discharge. Medicine is managing the antibiotics and will make determinations on post discharge antibiotics. A plan has been established. Afebrile a. Patient denies any nausea, vomiting, fever, chills. She denies any pain at this time. Recent CT showed diminished Small anterior pelvic fluid collection. to have her follow-up in 1 week With obstetric Interval history: Patient is a 23-year-old female admitted for abdominal cellulitis post and bacteremia with MRSA. 07/22/2024: Assumed Care Patient denied any chest pain, shortness a breath, nausea, vomiting, fever chills denied any further abdominal pain. Patient did state she may sign out AMA if her boyfriend cannot stay the night, informed and educated patient on the risks of leaving without proper treatment. OB - PN: Obj Data Labs 07/23/24 05:23 07/23/24 05:23 Labs: Laboratory Results - last 24 hr 07/23/24 05:23 WBC 10.8 H RBC 3.09 L Hgb 8.8 L Hct 27.9 L MCV 90.3 MCH 28.5 MCHC 31.5 L RDW 15.9 H Plt Count 476 H MPV 9.8 Immature Gran % (Auto) Not Reportable Neut % (Auto) Not Reportable Lymph % (Auto) Not Reportable [place] % (Auto) Not Reportable Eos % (Auto) Not Reportable Baso % (Auto) Not Reportable Lymph # (Auto) Not Reportable [place] # (Auto) Not Reportable Eos # (Auto) Not Reportable Baso # (Auto) Not Reportable Abs Immat Gran (auto) Not Reportable Absolute Neuts (auto) Not Reportable Absolute Nucleated RBC Not Reportable Neutrophils % (Manual) 80 H Band Neutrophils % 3 Lymphocytes % (Manual) 15 L Monocytes % (Manual) 2 L Nucleated RBC % Not Reportable Abs Neuts (Manual) 8.96 H Abs Lymphs (Manual) 1.62 Abs Monocytes (Manual) 0.21 Platelet Estimate Increased Anisocytosis 1+ Schistocytes None seen Sodium 138 Potassium 3.9 Chloride 103 Carbon Dioxide 29 Anion Gap 6 BUN 8 Creatinine 0.80 Estim Creat Clear Calc 102 Estimated GFR > 60 Glucose 85 Calcium 9.0 Magnesium 2.2 Total Bilirubin 0.3 AST 28 ALT 14 Alkaline Phosphatase 116 Total Protein 7.0 Albumin 3.3 L Vancomycin Trough 14.7 OB - PN A/P Assessment and Plan (1) Abdominal wall cellulitis: Code(s): L03.311 - Cellulitis of abdominal wall Status: Acute Assessment and Plan: diminished induration of the abdominal wall cellulitis, too small ruptured subcuticular cyst. Draining. To have wound care discussed care of her wound after discharge. Medicine is managing the antibiotics and will make determinations on post discharge antibiotics. A plan has been established. Afebrile a. Patient denies any nausea, vomiting, fever, chills. She denies any pain at this time. Recent CT showed diminished Small anterior pelvic fluid co llection. to have her follow-up in 1 week With obstetric Time Spent With Patient Time: Total time spent is greater than 50% in coordination of care (as documented) at patient's floor/unit and/or counseling patient:
--- NOTE | 2024-07-23 09:13 | PC.NURSE ---
On 07/21/24, Atiya CLARKE), walked into patient room to deliver breakfast tray. Visitor was laying in bed with patient. Patient and visitor had no clothes on.
[2024-07-23] MEDS: MULTIVITAMINS THERAPEUTIC TAB (*BKC) 1 TABLET PO (09:27)
[2024-07-23] MEDS: FERROUS SULFATE 325 MG TABLET DR PO (09:27)
[2024-07-23] MEDS: DOCUSATE SODIUM 100 MG CAPSULE PO (09:27)
--- NOTE | 2024-07-23 09:39 | PCNWS ---
Weekly nutritional screen. Patient is tolerating current Regular diet with adequate intake of 100% all meals. No weight loss reported. No nutritional recommendations at this time.
--- NOTE | 2024-07-23 16:04 | P.CONGS_ITS ---
Assessment and Plan Assessment and plan (1) Abdominal wall abscess: Code(s): L02.211 - Cutaneous abscess of abdominal wall Status: Acute Assessment and Plan: Patient is nearly 2 weeks post with now cellulitis and abscess at the incision. There are a two pinpoint areas that are actively draining, but they are not large enough to pack and does not appear to be enough to allow this to adequately drain. I discussed the case with Dr. Roberto, who will also discuss with OBGYN. I will make her NPO after midnight in case of proceeding with incision and drainage tomorrow. Agree with continuing IV antibiotics. (2) Abdominal wall cellulitis: Code(s): L03.311 - Cellulitis of abdominal wall Status: Acute (3) Bacteremia due to methicillin resistant Staphylococcus aureus: Code(s): R78.81 - Bacteremia; B95.62 - Methicillin resistant Staphylococcus aureus infection as the cause of diseases classified elsewhere Status: Acute (4) Sepsis: Qualifiers: Sepsis acute organ dysfunction status: unspecified Sepsis type: sepsis due to unspecified organism Qualified Code(s): A41.9 - Sepsis, unspecified organism Code(s): A41.9 - Sepsis, unspecified organism Status: Acute Assessment and Plan: Resolved. Secondary to postoperative wound infection and abscess as mentioned above with bacteremia. Continue antibiotics. (5) Iron deficiency anemia: Code(s): D50.9 - Iron deficiency anemia, unspecified Status: Acute Plan I have discussed the patient's case and plan of care with Dr. Roberto. History of Present Illness Consult details Consult date: 07/23/24 Reason for consult: other (Abscess) Requesting physician: Gabo Torres MD Narrative: This is a 23-year-old female who we have been asked to see in surgical consultation for an abscess. She had a on 07/10/2024. Her was complicated by lack of care, placental abruption, PPROM and placenta previa. She has a history of methamphetamine and marijuana use. She is currently homeless. She presented to the ED on 07/16/2024 for evaluation of fevers and drainage from her incision. Workup in the ED showed leukocytosis and CT evidence of some fluid anterior and to the lateral side of the uterus that could be normal postoperative changes versus infection, no obvious abscess formation. She was admitted and has been treated with IV antib iotics. Initial blood cultures on 07/16/2024 are growing MRSA. Repeat blood cultures no growth to date. Since admission, she has developed increased drainage from her incision and is feeling more tender. Wound care was consulted today. They evaluated the patient and was concerned about an abscess. Hospitalist consulted our service for evaluation. Review of Systems Review of Systems: All systems reviewed & are unremarkable except as noted in HPI and below PMFSH Past Medical History Medical History (Updated 07/23/24 @ 16:10 by GUERLINE Farley) Asthma Homelessness Marijuana use Methamphetamine abuse Placenta previa Poor social situation premature rupture of membranes (PPROM) with unknown onset of labor Substance abuse Tobacco abuse Surgical History Surgical History History of Family History Family History Mother Cervical cancer Breast cancer Father Diabetes mellitus Other Brain cancer Social History Social History Smoking packs per day: 0.5 Smoking cigarettes per day: 10.0 Years smoked: 6 Smoking pack-years: 3.00 Smoking status: Current every day smoker Tobacco type: cigarettes Alcohol intake: never Substance use: current Substance use type: marijuana and methamphetamine Do You Feel Safe in your Home?: Yes Lack of Transportation: YES Lack of Food: Often True Current Housing: I Do Not Have Housing Concerned About Future Housing: YES Difficulty Paying Gas/Electric Bills: No Difficulty Paying for Meds: No Currently Unemployed: YES Education: Grade School Difficulty w/ Childcare or Family Care: YES Living arrangements: homeless Occupation/Education: unemployed Gender identity (if verbalized by the patient): Female Spiritual care concerns: No Meds Home Medications and Allergies Home Medications Medication Instructions Recorded Confirmed Type hydrocodone 5 mg-acetaminophen 325 1 tablet PO Q6H PRN Pain Rated 4-6 07/13/24 07/16/24 Rx mg tablet #15 tabs Allergies Allergy/AdvReac Type Severity Reaction Status Date / Time No Known Allergies Allergy Verified 07/16/24 15:56 Vital Signs Vital Signs - 24 hr 07/22/24 21:53 07/22/24 20:00 07/23/24 05:56 Temperature 98.3 F 98.3 F Pulse Rate 77 69 Respiratory Rate 13 14 Blood Pressure 154/88 H 145/93 H Pulse Oximetry 99 100 Oxygen Delivery Room Air 07/23/24 08:00 Temperature Pulse Rate Respiratory Rate Blood Pressure Pulse Oximetry Oxygen Delivery Room Air Exam Const: General: comfortable and no acute distress Orientation/consciousness: patient oriented x3 HENMT: Head: normocephalic and atraumatic Ears: hearing grossly normal bilaterally Mouth: Yes moist mucous membranes Eyes: General: appearance normal, both eyes and all related structures Pupils: Equal, round and reactive pupils present Neck: Neck: normal visual inspection and full ROM Resp: Effort & Inspection: no respiratory distress Auscultation: clear to auscultation bilaterally Cardio: Rate: regular rate Rhythm: regular rhythm Heart sounds: S1 normal heart sound present and S2 normal heart sound present Peripheral pulses: Peripheral pulses 2+ throughout GI: Inspection: non-distended GI Palp: Yes Soft to palpation, Yes Tenderness to palpation present (GI) (tenderness at incision and fluctuant areas at incision), No Guarding due to palpation present (GI) and No Rebound tenderness present Auscultation: normal bowel sounds Other: Pfannenstiel incision with erythema and swelling of 3/4 the length of the incision with multiple areas of fluctuance. There is scant purulent drainage seeping from the incision at midline, as well as a pinpoint opening at the left lateral aspect of the incision with purulent drainage. She is extremely tender over the entire incision. Skin: General skin exam: normal color Neuro: General: moves all extremities and no focal motor deficits Speech: normal speech Motor exam (neuro): 5/5 motor strength present throughout Extrem: General: normal to inspection and no edema Psych: Mental Status: mental status grossly normal Attitude: cooperative Insight: Good insight present (Psych) Judgement: Good judgement present (Psych) Results Labs 07/23/24 05:23 07/23/24 05:23 Labs: Abnormal lab results 07/23/24 Range/Units 05:23 WBC 10.8 H (4.5-10.0) K/mm3 RBC 3.09 L (4.2-5.4) M/mm3 Hgb 8.8 L (12.0-15.0) g/dL Hct 27.9 L (37.0-47.0) % MCHC 31.5 L (32-36) g/dl RDW 15.9 H (11.5-14.5) % Plt Count 476 H (150-375) k/mm3 Neutrophils % (Manual) 80 H (46-73) % Lymphocytes % (Manual) 15 L (18-44) % Monocytes % (Manual) 2 L (3-9) % Abs Neuts (Manual) 8.96 H (1.7-7.2) K/mm3 Albumin 3.3 L (3.5-5.1) g/dL Diabetes panel 07/23/24 Range/Units 05:23 Sodium 138 (137-145) mmol/L Potassium 3.9 (3.4-5.0) mmol/L Chloride 103 (98-107) mmol/L Carbon Dioxide 29 (22-30) mmol/L BUN 8 (7-17) mg/dL Creatinine 0.80 (0.7-1.0) mg/dL Glucose 85 (65-110) mg/dL Calcium 9.0 (8.4-10.2) mg/dL AST 28 (14-36) U/L ALT 14 (6-35) U/L Alkaline Phosphatase 116 (38-126) U/L Total Protein 7.0 (6.3-8.2) g/dL Albumin 3.3 L (3.5-5.1) g/dL Calcium panel 07/23/24 Range/Units 05:23 Calcium 9.0 (8.4-10.2) mg/dL Albumin 3.3 L (3.5-5.1) g/dL Pituitary panel 07/23/24 Range/Units 05:23 Sodium 138 (137-145) mmol/L Potassium 3.9 (3.4-5.0) mmol/L Chloride 103 (98-107) mmol/L Carbon Dioxide 29 (22-30) mmol/L BUN 8 (7-17) mg/dL Creatinine 0.80 (0.7-1.0) mg/dL Glucose 85 (65-110) mg/dL Calcium 9.0 (8.4-10.2) mg/dL Adrenal panel 07/23/24 Range/Units 05:23 Sodium 138 (137-145) mmol/L Potassium 3.9 (3.4-5.0) mmol/L Chloride 103 (98-107) mmol/L Carbon Dioxide 29 (22-30) mmol/L BUN 8 (7-17) mg/dL Creatinine 0.80 (0.7-1.0) mg/dL Glucose 85 (65-110) mg/dL Calcium 9.0 (8.4-10.2) mg/dL Total Bilirubin 0.3 (0.2-1.3) mg/dL AST 28 (14-36) U/L ALT 14 (6-35) U/L Alkaline Phosphatase 116 (38-126) U/L Total Protein 7.0 (6.3-8.2) g/dL Albumin 3.3 L (3.5-5.1) g/dL All other labs normal. Imaging Additional studies: ITS Impressions Chest X-Ray 07/16/24 11:00 IMPRESSION: 1. No acute cardiopulmonary disease. Abdomen/Pelvis CT 07/16/24 11:46 IMPRESSION: 1. Fat stranding anterior to the uterus and to the right with minimal fluid collections which may be postoperative or due to infection. Clinical correlation advised. I stranding also seen in the pelvis with minimal fluid. 2. Fat stranding in the subcutaneous tissues with minimal air which may be postoperative or inflammatory. 3. Minimal fluid in the uterine cavity. Abdomen/Pelvis CT 07/20/24 22:02 IMPRESSION: 1. Hepatomegaly. 2. Possible filling defect in the portal and splenic vein and improper visualization of the inferior mesenteric vein with the possibility of thrombus. Ultrasound evaluation advised. 3. The collection seen anterior to the uterus are decreased. Fat stranding seen in the sites of the pelvis around the uterus is slightly decreased. 4. Thickened wall of the urinary bladder with irregularity which may indicate cystitis. 5. Fat stranding in the anterior abdominal wall and fundus size which has increased which may indicate cellulitis. Follow-up advised. Abdomen Ultrasound 07/21/24 15:35 IMPRESSION: Hepatosplenomegaly. Trace perihepatic fluid. No filling defect within the portal vein or the splenic vein, as detailed above.
--- NOTE | 2024-07-23 17:43 | P.DS_ITS ---
DS: Admitting Diagnosis Discharge Date 07/23/2024 Admitting Diagnosis Abdominal Pain DS: Discharge Diagnosis Discharge Diagnosis (1) Sepsis: Qualifiers: Sepsis acute organ dysfunction status: unspecified Sepsis type: sepsis due to unspecified organism Qualified Code(s): A41.9 - Sepsis, unspecified organism Code(s): A41.9 - Sepsis, unspecified organism Status: Acute Assessment and Plan: * Secondary to cellulitis and site * Resolving WBC still 12.7 * Follow-up cultures with no growth initial cultures MRSA * Echocardiogram pending (2) Bacteremia due to methicillin resistant Staphylococcus aureus: Code(s): R78.81 - Bacteremia; B95.62 - Methicillin resistant Staphylococcus aureus infection as the cause of diseases classified elsewhere Status: Acute Assessment and Plan: * Unknown if due to cellulitis or possible IV drug use * 48 hours post second set of blood cultures negative * afebrile/antipyretics for fever * Echocardiogram pending * Plan will be for IV vancomycin x3 more doses then patient will be discharged and scheduled for outpatient IV dose of Dalbavancin to cover instead of 2 weeks IV ABX however if patient has endocarditis need to change dosing. This will be the best option for patient since known IV drug user in unable to place midline or PICC line as currently being homeless and refuses to go to need skilled facility. (3) Intra-abdominal infection after surgical procedure: Code(s): T81.40XA - Infection following a procedure, unspecified, initial encounter Status: Acute Assessment and Plan: See Above (4) Abdominal wall cellulitis: Code(s): L03.311 - Cellulitis of abdominal wall Status: Acute Assessment and Plan: * Vancomycin IV * See bacteremia for antibiotic therapy and plan * Acetaminophen for pain * OBGYN admitting (5) Iron deficiency anemia: Code(s): D50.9 - Iron deficiency anemia, unspecified Status: Acute Assessment and Plan: * Hgb 5.8 POA * transfused 2 units PRBC's * 8.8 post transfusion * Hemodynamically stable * Monitor H&H * Transfuse if Hgb <7.0 DS: Summary Hospital Course Hospital Course: The patient delivered on 07/10/24 via at [facility] at 33 weeks. was complicated by lack of care, placenta previa, placental abruption, PPROM, substance abuse, and lack of housing. She was discharged from the hospital on 07/13 after 3 days of care inpatient. She returned on 07/16/2024 for re-evaluation after she noticed yellow discharge from her C- section incision site. She endorsed associated lower abdominal pain, diaphoresis, and chills. Initial ED workup showed anemia with a hemoglobin of 7.6, previously 7.4 on 07/11/2024. The patient was offered a blood transfusion post , however she declined stating she did not want someone else's blood inside her. CT of the abdomen/pelvis was concerning for abdominal wall cellulitis without abscess formation. UA suspicious for UTI and urine drug screen positive for opiates, amphetamine, and cannabis. Blood cultures and a urine culture were obtained during initial assessment. Blood culture from admission is growing MRSA. Repeat blood culture from 07/19/2024 is negative till date. During hospitalization - meets SIRS criteria: HR, WBC. No hypotension or hypoxia. - meets SIRS criteria: HR, WBC. No hypotension or hypoxia. - lactic acid: 1.1 - 2500 bolus given, now on 100 mL/hour - suspected source: Abdominal wall cellulitis - started on vancomycin and Zosyn on 07/16 - blood cultures drawn on 07/16, preliminary growth of Gram-positive cocci in clusters. - UA concerning for UTI, culture pending 07/18: pending blood culture patient had fever yesterday afternoon 100, no fever overnight, continue current antibiotics 07/19: blood culture July 16 grew MRSA, susceptible to vancomycin, patient is afebrile, blood pressure stable, repeat blood culture today. 07/22 the plan was : * Plan will be for IV vancomycin x3 more doses then patient will be discharged and scheduled for outpatient IV dose of Dalbavancin to cover instead of 2 weeks IV ABX however if patient has endocarditis need to change dosing. This will be the best option for patient since known IV drug user in unable to place midline or PICC line as currently being homeless and refuses to go to need skilled facility. 07/23: During the evaluation patient incision site looks indurated and appeared patient needs incision and drainage. Consulted surgery who agrees with the injection and drainage but patient wants to leave AMA in spite of explaining the risks of not getting medical care. Status at Discharge Cognitive/behavioral status at discharge: AMA Time Spent with Patient Time attestation: Total time spent providing and/or coordinating discharge services: 45 minute Exam Narrative: Physical Exam: * GENERAL: Alert and oriented x 3. No acute distress. * HEENT: Moist mucous membranes. * LUNGS: Clear to auscultation bilaterally. No accessory muscle use. * CARDIOVASCULAR: Regular rate and rhythm. No murmur. No JVD. S1-S2 * ABDOMEN: Soft, non tenderness and non-distended. Transverse cellulitis abdominal wall post no drainage noted erythema improving * EXTREMITIES: No edema. Non-tender * SKIN: No rashes or lesions. Skin warm, dry. * NEUROLOGIC: No focal neurological deficits. * PSYCHIATRIC: Appropriate mood and affect. Poor judgment Const: General: comfortable and no acute distress Other: , female, modestly ill-appearing HENMT: Face/Nose/Sinus: Normal nares present Mouth: Yes moist mucous membranes Eyes: General: appearance normal, both eyes and all related structures Sclera: sclerae normal Pupils: Equal, round and reactive pupils present EOM: EOMs intact bilaterally Resp: Effort & Inspection: normal respiratory effort Other: Faint expiratory wheeze more prominent on the right Cardio: Rate: tachycardic Rhythm: regular rhythm Other: S1-S2 present without murmur, rub, ectopy GI: Other: Upper abdomen soft and nontender. Pannus and incision site indurated, erythematous, with scant serosanguineous drainage. Tenderness and heat to the touch. Skin: General skin exam: normal color and no rashes or lesions noted Other: Induration to her pannus and mons pubis with erythema and heat. Scant serosanguineous drainage from incision. Neuro: Cranial nerves: Yes Equal, round and reactive pupils present Speech: normal speech Motor exam (neuro): 5/5 motor strength present throughout Sensory Exam: normal sensation Other: A&O x4 Extrem: General: normal to inspection Psych: Mental Status: mental status grossly normal Affect: Sad affect present and Anxious affect present Other: Fair insight and judgment DS: Data Data Completed and Pending Labs on day of discharge: Labs from last 24 hours 07/23/24 05:23 WBC 10.8 H RBC 3.09 L Hgb 8.8 L Hct 27.9 L MCV 90.3 MCH 28.5 MCHC 31.5 L RDW 15.9 H Plt Count 476 H MPV 9.8 Immature Gran % (Auto) Not Reportable Neut % (Auto) Not Reportable Lymph % (Auto) Not Reportable [place] % (Auto) Not Reportable Eos % (Auto) Not Reportable Baso % (Auto) Not Reportable Lymph # (Auto) Not Reportable [place] # (Auto) Not Reportable Eos # (Auto) Not Reportable Baso # (Auto) Not Reportable Abs Immat Gran (auto) Not Reportable Absolute Neuts (auto) Not Reportable Absolute Nucleated RBC Not Reportable Neutrophils % (Manual) 80 H Band Neutrophils % 3 Lymphocytes % (Manual) 15 L Monocytes % (Manual) 2 L Nucleated RBC % Not Reportable Abs Neuts (Manual) 8.96 H Abs Lymphs (Manual) 1.62 Abs Monocytes (Manual) 0.21 Platelet Estimate Increased Anisocytosis 1+ Schistocytes None seen Sodium 138 Potassium 3.9 Chloride 103 Carbon Dioxide 29 Anion Gap 6 BUN 8 Creatinine 0.80 Estim Creat Clear Calc 102 Estimated GFR > 60 Glucose 85 Calcium 9.0 Magnesium 2.2 Total Bilirubin 0.3 AST 28 ALT 14 Alkaline Phosphatase 116 Total Protein 7.0 Albumin 3.3 L Vancomycin Trough 14.7 Preliminary micro results at discharge 07/19/24 09:24 Blood Culture - Preliminary Blood 07/19/24 09:24 Blood Culture - Preliminary Blood Discharge Plan Discharge Consulting providers: Bailey Johns; Delia Roberto Patient Disposition: Left Against Medical Advice Discharge Instructions: Patient left AMA Medical reconciliation has to be done by the primary care physician and needs to see OBGYN,Surgery for her incision site Patient Instructions: Wound Infection (DC), Pain Management (DC), Wound Healing and Your Diet (DC), (DC) Discharge Medications: Discontinued hydrocodone-acetaminophen 5-325 mg Tablet 1 tablet PO Q6H PRN (Reason: Pain Rated 4-6) Qty: 15 0RF Date of admission: 07/16/24 16:33 Primary Care Provider: UNKNOWN,DOCTOR Admitting Provider: Rivera Jack Attending physician on admission: Yamilex Macias Condition: Stable
--- NOTE | 2024-07-23 19:03 | PC.NURSE ---
pt stated she wanted to leave AMA after her flow floor attendant was escorted out by security. This RN went over the risks of leaving against medical advice including risk of sepsis and what sepsis means and also a risk of . Pt stated that if her flow floor attendant can't stay then she will not stay. Pt was then educated on the risks of leaving. Pt stated that she is leaving. This nurse again tried to convince pt to stay and let surgery handle her case as the surgeon was on the floor at the time trying to assess pt. Pt then stated she will return to the hospital if she feels worse or if wound gets worse. This pt wound is already purulent and tender to touch. This nurse again pleaded with pt to stay. Pt refused. Pt signed AMA form at 1723 and IV was taken out. Gauze, jennifer pads, and mesh underwear was given to pt. Hospitalist was called to report pt leaving AMA.
== END 2024-07-23 17:35 | disposition left against medical advice (07) | DRG 561 ==
LOC: ANHED 12:54 → ANH3MEDSUR 14:49 → ANH2MED 15:47 → ANH3MEDSUR 07-22 14:41 → ANH2MED 07-24 14:53 → ANH3MEDSUR 07-24 14:53
PROVIDERS: Hospitalist; Nurse Practitioner; Student in an Organized Health Care Education/Training Program; Admitting Provider Obstetrics & Gynecology; Emergency Provider Physician Assistant; Visit Provider General Practice
DX: O86.01 Infection of obstetric surgical wound, superficial incisional site (principal); O86.04 Sepsis following an obstetrical procedure; L03.311 Cellulitis of abdominal wall; L02.211 Cutaneous abscess of abdominal wall; B95.62 Methicillin resistant Staphylococcus aureus infection as the cause of diseases classified elsewhere; O90.81 Anemia of the puerperium; D62 Acute posthemorrhagic anemia; D50.9 Iron deficiency anemia, unspecified; O99.53 Diseases of the respiratory system complicating the puerperium; J45.909 Unspecified asthma, uncomplicated; Z59.00 Homelessness unspecified
CPT/HCPCS: 36415; 36430; 71046; 74177; 76705; 80048; 80053; 80076; 80202; 80307; 81001; 81025; 82565; 82728; 83010; 83540; 83550; 83605; 83735; 85025; 85027; 85046; 85610; 85730; 86140; 86850; 86900; 86901; 86923; 87040; 87070; 87075; 87086; 87181; 87205; 93005; 93306; 94640; 96361; 96365; 96366; 96367; 99285; A9270; G0378; G0379; J1756; J2270; J2405; J2543; J3370; J7030; J7050; P9016; Q9967